=== PATIENT | male | born 1935 | race Caucasian/White ===

== ENCOUNTER → 2017-01-30 | Outpatient (CLI) | payer OTHER ==
[~2017-01-30] MED LIST: ASPEC81 PO; LPT40 PO; LSN5 PO; MCRK20 PO; NVLGI7030 SC
[2017-01-30 10:52] LABS: HEMATOCRIT 41.3 % (42-52); MEAN CELL VOLUME 93.2 fL (80-100); MEAN CORPUSCULAR HEMOGLOBIN 31.8 pg (25-34); MEAN CORPUSCULAR HGB CONC 34.1 g/dl (32-36); MEAN PLATELET VOLUME 10.2 fL (7.4-10.4); PLATELET COUNT 204 K/uL (130-400); RED BLOOD COUNT 4.43 M/uL (4.7-6.1)
[2017-01-30 11:00] LABS: CALCIUM 9.3 mg/dl (8.5-10.1)
[2017-01-30 11:03] LABS: BLOOD UREA NITROGEN 14 mg/dl (7-18); BUN/CREATININE RATIO 14.3 (10-20); CARBON DIOXIDE 22 mmol/L (21-32); CHLORIDE 108 mmol/L (98-107); CREATININE 0.99 mg/dl (0.60-1.40); GLUCOSE 142 mg/dl (70-99); POTASSIUM 4.5 mmol/L (3.5-5.1); SODIUM 141 mmol/L (136-145)
[2017-01-30 11:39] LABS: ESTIMATED AVERAGE GLUCOSE 166 mg/dl; HA1C FLAG Normal (Normal)
== END | disposition home or self-care (01) ==
LOC: C.LABWYN 10:08
PROVIDERS: ATTEND Internal Medicine
DX: E03.9 Hypothyroidism, unspecified (principal); E11.9 Type 2 diabetes mellitus without complications

== ENCOUNTER → 2017-03-13 | Outpatient (CLI) | payer OTHER | END | disposition home or self-care (01) | LOC: C.LABWYN 12:48 | PROVIDERS: ATTEND Internal Medicine | DX: E03.9 Hypothyroidism, unspecified (principal) ==

== ENCOUNTER → 2017-04-10 | Outpatient (CLI) | payer OTHER | END | disposition home or self-care (01) | LOC: C.LABWYN 17:47 | PROVIDERS: ATTEND Internal Medicine | DX: E03.9 Hypothyroidism, unspecified (principal) ==

== ENCOUNTER → 2017-05-22 | Outpatient (CLI) | payer OTHER | END | disposition home or self-care (01) | LOC: C.LABWYN 12:48 | PROVIDERS: ATTEND Internal Medicine | DX: E03.9 Hypothyroidism, unspecified (principal); E11.9 Type 2 diabetes mellitus without complications; I10 Essential (primary) hypertension; E78.00 Pure hypercholesterolemia, unspecified; G93.41 Metabolic encephalopathy ==

== ENCOUNTER → 2017-08-28 | Outpatient (CLI) | payer OTHER | END | disposition home or self-care (01) | LOC: C.LABWYN 11:51 | PROVIDERS: ATTEND Internal Medicine | DX: E03.9 Hypothyroidism, unspecified (principal) ==

== ENCOUNTER → 2017-10-25 | Outpatient (CLI) | payer OTHER ==
[2017-10-25 13:13] LABS: BLOOD UREA NITROGEN 18 mg/dl (7-18); CALCIUM 9.1 mg/dl (8.5-10.1); CARBON DIOXIDE 26 mmol/L (21-32); GLUCOSE 197 mg/dl (70-99); POTASSIUM 4.1 mmol/L (3.5-5.1); SODIUM 137 mmol/L (136-145)
== END | disposition home or self-care (01) ==
LOC: C.LABWYN 09:56
PROVIDERS: ATTEND Internal Medicine
DX: G93.41 Metabolic encephalopathy (principal); E11.9 Type 2 diabetes mellitus without complications; I10 Essential (primary) hypertension; E78.00 Pure hypercholesterolemia, unspecified; E03.9 Hypothyroidism, unspecified

== ENCOUNTER 2017-11-16 13:22 | Emergency (ER) | payer OTHER ==
[~2017-11-16] VITALS: Ht 170.2 cm; Wt 100.5 kg
[2017-11-16 13:30] VITALS: TEMP 36.4; Ht 170.2 cm; Wt 100.5 kg
[2017-11-16 14:46] LABS: BASO % 0.6 %; BASO ABS # 0.04 K/uL (0-0.2); EOS % 3.6 %; EOS ABS # 0.26 K/uL (0-0.5); HEMATOCRIT 41.4 % (42-52); HEMOGLOBIN 14.2 g/dL (14.0-18.0); IG# 0.04 K/uL (0.00-0.02); LYMPH % 28.6 %; LYMPH ABS # 2.05 K/uL (1.2-3.4); MEAN CELL VOLUME 91.2 fL (80-100); MEAN CORPUSCULAR HEMOGLOBIN 31.3 pg (25-34); MEAN CORPUSCULAR HGB CONC 34.3 g/dl (32-36); MEAN PLATELET VOLUME 9.5 fL (7.4-10.4); MONO % 8.9 %; MONO ABS # 0.64 K/uL (0.11-0.59); NEUT % 57.7 %; NEUT ABS # 4.13 K/uL (1.4-6.5); PLATELET COUNT 209 K/uL (130-400); RED CELL DISTRIBUTION WIDTH CV 13.5 % (11.5-14.5); RED CELL DISTRIBUTION WIDTH SD 44.7 fL (36.4-46.3); WHITE BLOOD COUNT 7.16 K/uL (4.8-10.8)
[2017-11-16] MEDS ORDERED: SODIUM CHLORIDE 0.9% 500ML 500 ML IV STA (14:46)
[2017-11-16 15:03] LABS: POTASSIUM 4.8 mmol/L (3.5-5.1); SODIUM 137 mmol/L (136-145)
[2017-11-16 15:09] LABS: ALBUMIN 3.7 gm/dl (3.4-5.0); ALT/SGPT 43 U/L (12-78); AST/SGOT 29 U/L (15-37); BLOOD UREA NITROGEN 19 mg/dl (7-18); CALCIUM 9.5 mg/dl (8.5-10.1); CARBON DIOXIDE 26 mmol/L (21-32); CREATININE 1.17 mg/dl (0.60-1.40); GLUCOSE 177 mg/dl (70-99)
[2017-11-16 15:12] LABS: ALKALINE PHOSPHATASE 71 U/L (45-117); TOTAL PROTEIN 7.3 gm/dl (6.4-8.2)
--- NOTE | 2017-11-16 15:26 | DIAGNOSTIC IMAGING REPORT ---
CHEST ONE VIEW PORTABLE CLINICAL HISTORY: 82 years-old Male presenting with dizziness. TECHNIQUE: Portable upright AP view of the chest was obtained. COMPARISON: 03/28/2016. FINDINGS: Atherosclerosis of the aortic arch. Cardiac silhouette normal in size. Mildly low lung volumes with hypoventilatory changes. No focal opacity. No large effusion or pneumothorax. Osseous structures normal. Upper abdomen normal. IMPRESSION: 1. Mildly low lung volumes with hypoventilatory changes. No convincing evidence of acute cardiopulmonary disease. Electronically signed by: Gianni Goodwin M.D. 11/16/2017 3:25 PM Dictated Date/Time: 11/16/2017 3:24 PM
--- NOTE | 2017-11-16 15:28 | DIAGNOSTIC IMAGING REPORT ---
HEAD WITHOUT CONTRAST (CT) CLINICAL HISTORY: 82 years-old Male presenting with dizziness. TECHNIQUE: Multidetector CT imaging of the head was performed without the use of intravenous contrast. IV contrast: None. A dose lowering technique was used consistent with the principles of ALARA (as low as reasonably achievable). COMPARISON: 03/28/2016. CT DOSE (mGy.cm): The estimated cumulative dose is 537.48 mGy.cm. FINDINGS: Dyslexia Teacher topogram: Unremarkable. Proportional ventricular and sulcal prominence, likely age-related parenchymal volume loss. Periventricular and subcortical white matter hypoattenuation, nonspecific but likely indicative of chronic small vessel ischemic change. No mass effect or midline shift. No hemorrhage or acute territorial infarct. No extra-axial fluid collection. Paranasal sinuses and mastoid air cells clear. Calvarium intact. IMPRESSION: 1. Chronic small vessel ischemic change. No acute intracranial abnormality. Electronically signed by: Gianni Goodwin M.D. 11/16/2017 3:27 PM Dictated Date/Time: 11/16/2017 3:25 PM
[2017-11-16] MEDS ORDERED: ATOR-24 PO (15:33)
[2017-11-16] MEDS ORDERED: LEVO50TA6 PO (15:33)
[2017-11-16] MEDS ORDERED: ERGO500037 PO (15:33)
[2017-11-16] MEDS ORDERED: HMLI7525 SC ×2 (15:33)
[2017-11-16] MEDS ORDERED: SENN-104 PO (15:33)
[2017-11-16] MEDS ORDERED: TRAM-10 PO (15:33)
[2017-11-16] MEDS ORDERED: POTA20TA16 PO (15:33)
[2017-11-16] MEDS ORDERED: NVLGI/PEN SC (15:33)
[2017-11-16] MEDS ORDERED: MELO7.5T5 PO (15:33)
[2017-11-16] MEDS ORDERED: ACET-1311 PO (15:33)
[2017-11-16] MEDS ORDERED: LSN5 PO (15:33)
[2017-11-16] MEDS ORDERED: ASPI81TA28 PO (15:33)
[2017-11-16] MEDS ORDERED: DOCU100C22 PO (15:33)
[2017-11-16] MEDS ORDERED: NAPR1TAB9 PO (15:33)
[2017-11-16] MEDS ORDERED: POLY335019 PO (15:33)
[2017-11-16] MEDS ORDERED: CETI10TA62 PO (15:33)
--- NOTE | 2017-11-16 16:15 | EMERGENCY ROOM VISIT NOTE ---
History Report prepared by Radha: Denise Delgado Under the Supervision of: Dr. Lucas Duke M.D. First contact with patient: 14:41 Chief Complaint: DIZZY Stated Complaint: DIZZINESS Nursing Triage Summary: pt states dizziness at this time, states eating lunch today and became dizzy afterwards. Pt states this has been happening frequently and staff at care facility decided to send him for evaluation today. History of Present Illness The patient is an 82 year old male who presents to the Emergency Room with complaints of persistent dizziness starting this morning. The patient resides in an assisted living facility. He was eating breakfast when he complained of dizziness. He was sent to the ED. He denies any LOC. He has been feeling well recently. He denies any fever, chills, cough, congestion, nausea, vomiting, diarrhea, or urinary symptoms. Source of History: patient Onset: this morning Position: other (global) Quality: other (dizziness) Timing: other (persistent) Associated Symptoms: No LOC, No fevers, No chills, No cough, No nausea, No vomiting, No diarrhea, No urinary symptoms Review of Systems See HPI for pertinent positives and negatives. A total of ten systems were reviewed and were otherwise negative. Past Medical & Surgical Medical Problems: (1) Diabetes mellitus (2) Hypertension Family History Noncontributory secondary to age. Social History Smoking Status: Never Smoker Drug Use: none Housing Status: assisted living Occupation Status: retired Current/Historical Medications Scheduled Aspirin (Aspirin Ec), 81 MG PO QAM Atorvastatin (Lipitor), 40 MG PO QPM Cetirizine Hcl (Qc All Day Allergy), 10 MG PO QAM Ergocalciferol (Vitamin D 79304 Unit), 50,000 UNIT PO WK Insulin Aspart (Novolog Flexpen), SC BID AT 0730 & 1630 Insulin Lispro 75/25 (Humalog Mix 75/25), 70 UNITS SC DAILY AT 1630 Insulin Lispro 75/25 (Humalog Mix 75/25), 90 UNITS SC DAILY AT 0730 Levothyroxine Sodium (Levothyroxine Sodium), 50 MCG PO DAILYBB Lisinopril (Lisinopril), 5 MG PO QAM Meloxicam (Mobic), 7.5 MG PO QAM Potassium Ext Rel (Klor-Con), 20 MEQ PO BIDM Sennosides-Docusate Sodium (Senna-S), 1 TAB PO QDL Scheduled PRN Acetaminophen (Tylenol), 650 MG PO Q4H PRN for Pain or Fever Docusate Sodium (Docqlace), 100 MG PO BID PRN for Constipation Naproxen (Aleve), 220 MG PO BID PRN for Pain Polyethylene Glycol 3350 (Miralax), 17 GM PO DAILY PRN for Constipation Tramadol (Ultram), 50 MG PO Q4H PRN for Pain Allergies Coded Allergies: No Known Allergies (Unverified , 11/16/17) Physical Exam Vital Signs Date Time Temp Pulse Resp B/P (MAP) Pulse Ox O2 Delivery O2 Flow Rate FiO2 11/16/17 17:56 88 16 155/74 96 11/16/17 16:02 87 16 137/70 97 Room Air 11/16/17 13:31 85 11/16/17 13:30 36.4 81 16 150/58 96 Room Air Physical Exam GENERAL: Awake, alert, well-appearing, in no distress HENT: Normocephalic, atraumatic. Oropharynx with dry MM but otherwise unremarkable. EYES: Normal conjunctiva. Sclera non-icteric. NECK: Supple. No nuchal rigidity. FROM. No JVD. RESPIRATORY: Clear to auscultation. CARDIAC: Regular rate, normal rhythm. Extremities warm and well perfused. Pulses equal. ABDOMEN: Soft, non-distended. No tenderness to palpation. No rebound or guarding. No masses. RECTAL: Deferred. MUSCULOSKELETAL: Chest examination reveals no tenderness. The back is symmetrical on inspection without obvious abnormality. There is no CVA tenderness to palpation. No joint edema. LOWER EXTREMITIES: Calves are equal size bilaterally and non-tender. No edema. No discoloration. NEURO: Normal sensorium. No sensory or motor deficits noted. Normal cerebellar function with [id number]. SKIN: No rash or jaundice noted. Medical Decision & Procedures ER Provider Diagnostic Interpretation: Xray results as stated below per my and radiologist interpretation. Radiology results as stated below per my review and radiologist interpretation: CHEST ONE VIEW PORTABLE CLINICAL HISTORY: 82 years-old Male presenting with dizziness. TECHNIQUE: Portable upright AP view of the chest was obtained. COMPARISON: 03/28/2016. FINDINGS: Atherosclerosis of the aortic arch. Cardiac silhouette normal in size. Mildly low lung volumes with hypoventilatory changes. No focal opacity. No large effusion or pneumothorax. Osseous structures normal. Upper abdomen normal. IMPRESSION: 1. Mildly low lung volumes with hypoventilatory changes. No convincing evidence of acute cardiopulmonary disease. Electronically signed by: Gianni Goodwin M.D. 11/16/2017 3:25 PM Dictated Date/Time: 11/16/2017 3:24 PM HEAD WITHOUT CONTRAST (CT) CLINICAL HISTORY: 82 years-old Male presenting with dizziness. TECHNIQUE: Multidetector CT imaging of the head was performed without the use of intravenous contrast. IV contrast: None. A dose lowering technique was used consistent with the principles of ALARA (as low as reasonably achievable). COMPARISON: 03/28/2016. CT DOSE (mGy.cm): The estimated cumulative dose is 537.48 mGy.cm. FINDINGS: Crepe Box Tender topogram: Unremarkable. Proportional ventricular and sulcal prominence, likely age-related parenchymal volume loss. Periventricular and subcortical white matter hypoattenuation, nonspecific but likely indicative of chronic small vessel ischemic change. No mass effect or midline shift. No hemorrhage or acute territorial infarct. No extra-axial fluid collection. Paranasal sinuses and mastoid air cells clear. Calvarium intact. IMPRESSION: 1. Chronic small vessel ischemic change. No acute intracranial abnormality. Electronically signed by: Gianni Goodwin M.D. 11/16/2017 3:27 PM Dictated Date/Time: 11/16/2017 3:25 PM Laboratory Results 11/16/17 14:30 Red Blood Count 4.54, Mean Corpuscular Volume 91.2, Mean Corpuscular Hemoglobin 31.3, Mean Corpuscular Hemoglobin Concent 34.3, Mean Platelet Volume 9.5, Neutrophils (%) (Auto) 57.7, Lymphocytes (%) (Auto) 28.6, Monocytes (%) (Auto) 8.9, Eosinophils (%) (Auto) 3.6, Basophils (%) (Auto) 0.6, Neutrophils # (Auto) 4.13, Lymphocytes # (Auto) 2.05, Monocytes # (Auto) 0.64, Eosinophils # (Auto) 0.26, Basophils # (Auto) 0.04 11/16/17 14:30 Test 11/16/17 14:30 11/16/17 15:40 White Blood Count 7.16 K/uL (4.8-10.8) Red Blood Count 4.54 M/uL (4.7-6.1) Hemoglobin 14.2 g/dL (14.0-18.0) Hematocrit 41.4 % (42-52) Mean Corpuscular Volume 91.2 fL (80-100) Mean Corpuscular Hemoglobin 31.3 pg (25-34) Mean Corpuscular Hemoglobin Concent 34.3 g/dl (32-36) Platelet Count 209 K/uL (130-400) Mean Platelet Volume 9.5 fL (7.4-10.4) Neutrophils (%) (Auto) 57.7 % Lymphocytes (%) (Auto) 28.6 % Monocytes (%) (Auto) 8.9 % Eosinophils (%) (Auto) 3.6 % Basophils (%) (Auto) 0.6 % Neutrophils # (Auto) 4.13 K/uL (1.4-6.5) Lymphocytes # (Auto) 2.05 K/uL (1.2-3.4) Monocytes # (Auto) 0.64 K/uL (0.11-0.59) Eosinophils # (Auto) 0.26 K/uL (0-0.5) Basophils # (Auto) 0.04 K/uL (0-0.2) RDW Standard Deviation 44.7 fL (36.4-46.3) RDW Coefficient of Variation 13.5 % (11.5-14.5) Immature Granulocyte % (Auto) 0.6 % Immature Granulocyte # (Auto) 0.04 K/uL (0.00-0.02) Anion Gap 7.0 mmol/L (3-11) Est Creatinine Clear Calc Drug Dose 53.1 ml/min Estimated GFR () 66.0 Estimated GFR (Non- 56.9 BUN/Creatinine Ratio 15.9 (10-20) Calcium Level 9.5 mg/dl (8.5-10.1) Magnesium Level 2.1 mg/dl (1.8-2.4) Total Bilirubin 0.6 mg/dl (0.2-1) Aspartate Amino Transf (AST/SGOT) 29 U/L (15-37) Alanine Aminotransferase (ALT/SGPT) 43 U/L (12-78) Alkaline Phosphatase 71 U/L (45-117) Troponin I < 0.015 ng/ml (0-0.045) Pro-B-Type Natriuretic Peptide 38 pg/ml (0-1800) Total Protein 7.3 gm/dl (6.4-8.2) Albumin 3.7 gm/dl (3.4-5.0) Globulin 3.6 gm/dl (2.5-4.0) Albumin/Globulin Ratio 1.0 (0.9-2) Urine Color YELLOW Urine Appearance CLEAR (CLEAR) Urine pH 5.0 (4.5-7.5) Urine Specific [place] 1.013 (1.000-1.030) Urine Protein NEG (NEG) Urine Glucose (UA) 1+ (NEG) Urine Ketones NEG (NEG) Urine Occult Blood NEG (NEG) Urine Nitrite NEG (NEG) Urine Bilirubin NEG (NEG) Urine Urobilinogen NEG (NEG) Urine Leukocyte Esterase NEG (NEG) Laboratory results reviewed by me. Medications Administered Medications (Trade) Dose Ordered Sig/Arturo Route Start Time Stop Time Status Last Admin Dose Admin Sodium Chloride 500 ml @ 999 mls/hr Q31M STAT IV 11/16/17 14:46 11/16/17 15:16 DC 11/16/17 15:27 999 MLS/HR ECG Per My Interpretation Indication: other (dizziness) Rate (beats per minute): 83 Rhythm: normal sinus Findings: no acute ischemic change, other (normal axis) ED Course 1442: The patient was evaluated in room B3A. A complete history and physical exam was performed. 1446: NSS 500 ml @ 999 mls/hr IV. 1602: I reevaluated the patient. Discussed results and discharge instructions: He verbalized understanding and agreement. The patient is ready for discharge. Medical Decision I reviewed the patient's past medical history, medications, and the nursing notes as described above. Differential diagnosis: Etiologies such as benign positional vertigo, dehydration, hypovolemia, anemia, tumor, infection, hypoglycemia, electrolyte abnormalities, cardiac sources, intracerebral event, toxicologic, neurologic, as well as others were entertained. The patient is a 82-year-old gentleman who presents emergency Department [facility] with episode of dizziness during lunch which is now resolved per hpi. Ill the patient is well-appearing, no acute distress, afebrile stable vital signs. EKG is unremarkable. Troponin negative. WBC within normal limits. Chest x-ray unremarkable. CT head negative. Patient has no complaints other than the IV in his arm. Given that the patient is well- appearing neurologically intact and with reassuring workup no indication for further evaluation at this time. Sx likely related to mild dehydration. Findings and plan for follow-up reviewed with patient. Patient agreeable and d/c 'd per discharge instructions. Medication Reconcilliation Current Medication List: was personally reviewed by me Blood Pressure Screening Patient's blood pressure: Elevated blood pressure Blood pressure disposition: Referred to PCP Impression Primary Impression: Dizziness Scribe Attestation The scribe's documentation has been prepared under my direction and personally reviewed by me in its entirety. I confirm that the note above accurately reflects all work, treatment, procedures, and medical decision making performed by me. Departure Information Dispostion Home / Self-Care Referrals ZAFAR FREITAS (PCP) Patient Instructions ED Dizziness O, [facility] Additional Instructions Please follow up with your primary care physician in the next 1-3 days for re- evaluation. The cause of your transient dizziness is unclear at this time but possibly due to mild dehydration. Otherwise, your exam, EKG, chest xray, lab results, and CT scan did not show signs of an emergent condition at this time. Drink plenty of fluids to ensure hydration. Return to the emergency department for worsening symptoms as described in the accompanying instructions.
[2017-11-16 17:56] VITALS: BP 155/74; PULSE 88; O2SAT 96
== END 2017-11-16 17:57 | disposition home or self-care (01) ==
LOC: EDBD 13:22 → C.EDB 13:23
DX: R42 Dizziness and giddiness (principal); E11.9 Type 2 diabetes mellitus without complications; I10 Essential (primary) hypertension; Z79.82 Long term (current) use of aspirin; Z79.4 Long term (current) use of insulin

== ENCOUNTER 2022-10-14 12:31 | Inpatient (IN) ==
--- NOTE | 2022-10-14 12:47 | Emergency Department Note ---
Impression & Plan Gastroenteritis, Weakness, Hyperglycemia due to type 1 diabetes mellitus ED Provider Note Provider: Dominik Neumann MD DATE OF SERVICE: 10/14/2022 CHIEF COMPLAINT: Dizzy/confusion/urinary incontinence/diarrhea HISTORY OF PRESENT ILLNESS: Patient is a 87-year-old gentleman history of hypertension and diabetes as well as hypothyroidism presenting here today from his nursing facility. EMS reports that the patient was around 11:00 last night and not been himself. Evidently has been dizzy and then: Conversation is normal. They report he is had some diarrhea and some dark stools. No traumas reported. Patient himself is a poor historian. Will answer a few yes and no questions and denies any significant pain right now. He denies headache or dizziness. He is unsure why he is here. Does not know his birthday but does not know the year of the recent holiday/season. Discussed with facility staff also state the patient did not eat this morning which is atypical and again not himself. He is hard of hearing at baseline. PAST MEDICAL HISTORY: As noted above MEDICATIONS: Reviewed medication list from the facility SOCIAL HISTORY: Resides at personal care facility PHYSICAL EXAM: GENERAL: alert and oriented to person in no acute distress on stretcher not aware of recent events or why he is here Head: normocephalic and atraumatic EYES: No injection, discharge or icterus. PERRL, EOMI. NECK: Trachea midline. Supple. ENT: Mucous membranes pink and moist. Pharynx without erythema or exudate. LUNGS: Airway patent. No retractions. Breath sounds clear with good air entry b ilaterally. HEART: Regular rate and rhythm. No chest wall tenderness ABDOMEN: Soft and non-tender, without guarding or rebound. Rectal: With nurse RN beef splitter, brown stool Hemoccult negative BACK: No midline tenderness, no wounds noted SKIN: Acyanotic, warm, dry, without rashes EXTREMITIES: Without swelling, tenderness or deformity NEUROLOGICAL: No focal deficits. No aphasia. No facial droop or slurred speech. Normal strength and tone in the extremities. Sensation to gross touch normal. Does have some difficulty answering more complex questions. Positive ambulate with assistance to the bathroom. EK bpm sinus rhythm first-degree AV block. No PVC or PAC. No acute ST segment elevation or depression. QTc 469. CONTINUOUS CARDIAC MONITORING: was ordered and showed a heart rate of 80s-90s bpm in sinus rhythm first-degree AV block Patient's laboratory studies and imaging reviewed. Differential includes gastrointestinal, infection, dehydration, metabolic abnormality, hypo/hyperglycemia, electrolyte disturbance, anemia, hypoxia, cardiac sources, intracerebral event/neurologic, as well as other pathologies. IMPRESSION/MEDICAL DECISION MAKING: Patient seems quite hard of hearing. Questionably answers some questions. CT head without acute findings. Not having focal neurological deficits and low suspicion for CVA given this. Is having some nonbloody diarrhea here. Negative flu and COVID testing. No significant leukocytosis or evidence of anemia today. Given some IV fluids magnesium his magnesium level a little bit low. No significant renal dysfunction. Procalcitonin minimally elevated awaiting a urine sample to exclude UTI given his urinary incontinence earlier. No evidence of transaminitis. Doubt pancreatitis. Benign abdomen and doubt acute perforation or diverticulitis. Troponin minimally elevated but without signs of chest pain question if this is more chronic but no baseline. Patient later little more alert and was able to eat some crackers and juice. We will give his evening dose of Lantus. Not in DKA at this point. Do have concerns given his diarrhea and fatigue and diabetes status that he is at risk for significant decline. Attempted to call the patient's son but no answer at the listed phone number. Given the patient's ambulatory dysfunction secondary to weakness again hospitalist contacted for further care. Still awaiting urine sample to exclude UTI. DIAGNOSIS: Gastroenteritis, weakness, confusion, type 1 diabetes DISPOSITION: Hospitalist will evaluate Patient was agreeable with this plan. Past Med/Surg History Medical History Diabetes mellitus Hypertension Hypothyroidism Surgical History Rectal prolapse prolapsed rectum repair Family History Other Cancer Depression Stroke Social History (Updated 10/14/22 @ 16:55 by Анна Guallpa PA-C) Smoking Status: Former smoker Smoking End Date: 1959; Feels Safe at Home: Yes Allergies Allergies Allergy/AdvReac Type Severity Reaction Status Date / Time No Known Allergies Allergy Unverified 04/29/21 09:01 Home Meds Home Medications Medication Instructions Recorded Confirmed aspirin 81 mg tablet,delayed 81 mg PO QAM 07/30/21 01/14/23 release (Darrion Low Dose Aspirin) atorvastatin 40 mg tablet (Lipitor) 40 mg PO DAILY@1700 04/29/21 10/14/22 levothyroxine 50 mcg tablet 50 mcg PO DAILYBB 04/29/21 10/14/22 (Synthroid) meclizine 12.5 mg tablet 12.5 mg PO TID Dizziness 04/29/21 10/14/22 meloxicam 7.5 mg tablet (Mobic) 7.5 mg PO QAM 04/29/21 10/14/22 cetirizine 10 mg tablet 10 mg PO DAILY 10/14/22 10/14/22 cholecalciferol (vitamin D3) 25 25 mcg PO DAILY 10/14/22 10/14/22 mcg (1,000 unit) capsule (Vitamin D3) insulin aspart U-100 100 unit/mL 0 unit subcut UD 10/14/22 10/14/22 (3 mL) subcutaneous pen insulin glargine 100 unit/mL (3 55 unit subcut BID 10/14/22 10/14/22 mL) subcutaneous pen (Lantus Solostar U-100 Insulin) potassium chloride 20 mEq 20 meq PO DAILY 10/14/22 10/14/22 tablet,extended release sennosides 8.6 mg tablet (senna) 8.6 mg PO DAILY 10/14/22 10/14/22 Results & Data (ED) Vital Signs Vital Signs - 24 hr 10/14/22 12:32 10/14/22 12:32 10/14/22 14:18 Temperature 36.7 C Temperature Source Oral Pulse Rate 82 Pulse Rate [Right Finger] 86 Pulse Rhythm [Right Finger] Pulse Strength [Right Finger] Respiratory Rate 24 20 Respiratory Effort / Characteristics Non-Labored Non-Labored Respiratory Depth Normal Normal Respiratory Pattern Blood Pressure 127/75 Blood Pressure [Right Arm] 120/62 Blood Pressure Mean 92 Blood Pressure Mean [Right Arm] 81 Pulse Oximetry 97 97 97 Oxygen Delivery Method Room Air Room Air Room Air Sepsis Recent Fever Within 48 Hours No Sepsis New/Unexplained Change in Mental Status N/A Sepsis Action Taken by Nursing No Action Required 10/14/22 16:00 Temperature Temperature Source Pulse Rate Pulse Rate [Right Finger] 91 H Pulse Rhythm [Right Finger] Regular Pulse Strength [Right Finger] Normal Respiratory Rate 21 Respiratory Effort / Characteristics Non-Labored Respiratory Depth Normal Respiratory Pattern Regular Blood Pressure Blood Pressure [Right Arm] 152/78 H Blood Pressure Mean Blood Pressure Mean [Right Arm] 102 Pulse Oximetry 98 Oxygen Delivery Method Room Air Sepsis Recent Fever Within 48 Hours Sepsis New/Unexplained Change in Mental Status Sepsis Action Taken by Nursing Laboratory Data 10/14/22 12:52 10/14/22 12:52 Lab Results 10/14/22 10/14/22 10/14/22 Range/Units 12:52 12:52 12:52 WBC 7.51 (4.8-10.8) K/ul RBC 4.56 L (4.63-6.08) M/uL Hgb 14.3 (14.0-18.0) g/dl Hct 41.5 (40.1-51.0) % MCV 91.0 (80.0-100.0) fL MCH 31.4 (25.0-34.0) pg MCHC 34.5 (32.0-36.0) g/dL RDW Std Deviation 44.2 (36.4-46.3) fL RDW Coeff of Santosh 13.2 (11.5-14.5) % Plt Count 183 (130-400) K/uL MPV 9.5 (9.4-12.4) fL Immature Gran % (Auto) 0.3 % Neut % (Auto) 83.6 % Lymph % (Auto) 7.1 % Dixon % (Auto) 8.4 % Eos % (Auto) 0.3 % Baso % (Auto) 0.3 % Neut # (Auto) 6.29 (1.4-6.5) K/uL Lymph # (Auto) 0.53 L (1.2-3.4) K/uL Dixon # (Auto) 0.63 (0.24-0.82) K/uL Eos # (Auto) 0.02 (0-0.50) K/uL Baso # (Auto) 0.02 (0-0.2) K/uL Immature Gran # (Auto) 0.02 (0.00-0.02) K/uL PT (9.0-12.0) Seconds INR (0.9-1.1) Sodium 137 (136-145) mmol/L Potassium 4.6 (3.5-5.1) mmol/L Chloride 106 (98-107) mmol/L Carbon Dioxide 20 L (21-32) mmol/L Anion Gap 11 (3-11) BUN 31 H (6-23) mg/dl Creatinine 1.25 (0.6-1.4) mg/dl Est Cr Clr Drug Dosing Not Reportable Est GFR ( Amer) 58.8 ml/min Est GFR (Non-Af Amer) 50.7 ml/min BUN/Creatinine Ratio 24.8 H (10-20) Glucose 193 H (70-99(Fasting)) mg/dl Calcium 8.6 (8.5-10.1) mg/dl Magnesium 1.6 L (1.7-2.4) mg/dl Total Bilirubin 1.1 H (0.2-1.0) mg/dl AST 19 (13-39) U/L ALT 19 (7-52) U/L Alkaline Phosphatase 38 (34-104) U/L Troponin I High Sens 21.0 H (0-20) pg/ml Total Protein 6.8 (6.0-8.3) gm/dl Albumin 3.9 (3.4-5.0) gm/dl Globulin 2.9 (2.5-4.0) gm/dl Albumin/Globulin Ratio 1.3 (0.9-2) Procalcitonin (0-0.5) ng/ml TSH 1.909 (0.300-4.500) uIu/ml SARS-CoV-2 (PCR) (Negative) Influenza Type A (PCR) (Neg) Influenza Type B (PCR) (Neg) RSV (RT-PCR) (Neg) 10/14/22 10/14/22 10/14/22 Range/Units 12:52 12:52 13:15 WBC (4.8-10.8) K/ul RBC (4.63-6.08) M/uL Hgb (14.0-18.0) g/dl Hct (40.1-51.0) % MCV (80.0-100.0) fL MCH (25.0-34.0) pg MCHC (32.0-36.0) g/dL RDW Std Deviation (36.4-46.3) fL RDW Coeff of Santosh (11.5-14.5) % Plt Count (130-400) K/uL MPV (9.4-12.4) fL Immature Gran % (Auto) % Neut % (Auto) % Lymph % (Auto) % Dixon % (Auto) % Eos % (Auto) % Baso % (Auto) % Neut # (Auto) (1.4-6.5) K/uL Lymph # (Auto) (1.2-3.4) K/uL Dixon # (Auto) (0.24-0.82) K/uL Eos # (Auto) (0-0.50) K/uL Baso # (Auto) (0-0.2) K/uL Immature Gran # (Auto) (0.00-0.02) K/uL PT 11.5 (9.0-12.0) Seconds INR 1.1 (0.9-1.1) Sodium (136-145) mmol/L Potassium (3.5-5.1) mmol/L Chloride (98-107) mmol/L Carbon Dioxide (21-32) mmol/L Anion Gap (3-11) BUN (6-23) mg/dl Creatinine (0.6-1.4) mg/dl Est Cr Clr Drug Dosing Est GFR ( Amer) ml/min Est GFR (Non-Af Amer) ml/min BUN/Creatinine Ratio (10-20) Glucose (70-99(Fasting)) mg/dl Calcium (8.5-10.1) mg/dl Magnesium (1.7-2.4) mg/dl Total Bilirubin (0.2-1.0) mg/dl AST (13-39) U/L ALT (7-52) U/L Alkaline Phosphatase (34-104) U/L Troponin I High Sens (0-20) pg/ml Total Protein (6.0-8.3) gm/dl Albumin (3.4-5.0) gm/dl Globulin (2.5-4.0) gm/dl Albumin/Globulin Ratio (0.9-2) Procalcitonin 0.63 H (0-0.5) ng/ml TSH (0.300-4.500) uIu/ml SARS-CoV-2 (PCR) NEGATIVE (Negative) Influenza Type A (PCR) Negative (Neg) Influenza Type B (PCR) Negative (Neg) RSV (RT-PCR) Negative (Neg) Administered Medications Discontinued Medications Magnesium Sulfate/Dextrose (Magnesium Sulfate / D5w) 1 gm in 100 mls @ 200 mls/hr IV Q30M RHODA Stop: 10/14/22 15:59 Last Infusion: 10/14/22 16:13 Dose: 0 mls/hr Documented By: Admin: 10/14/22 15:40 Dose: 200 mls/hr Documented By: Infusion: 10/14/22 15:40 Dose: 200 mls/hr Documented By: Admin: 10/14/22 15:13 Dose: 200 mls/hr Documented By: MELISSA Lactated Ringer's (Lr) 1,000 mls @ 999 mls/hr IV .Q1H1M ONE Stop: 10/14/22 16:21 Last Admin: 10/14/22 16:19 Dose: 999 mls/hr Documented By: MELISSA Insulin Glargine (Lantus Per Unit Charge) 55 units SQ ONE ONE Stop: 10/14/22 16:17 Last Admin: 10/14/22 16:42 Dose: 55 units Documented By: MELISSA Co-signed By: MINDI Ioversol (Optiray 350 100ml) 86 ml IV ONCE ONE Stop: 10/14/22 18:17 Last Admin: 10/14/22 18:16 Dose: 86 ml Documented By: ATILIO Imaging Data Radiologist's Impression: Chest X-Ray 10/14/22 12:42 XR chest 1V portable CLINICAL HISTORY: weak TECHNIQUE: Single frontal radiograph of the chest was obtained. Comparison: None available at the time of this dictation. FINDINGS: No lines and tubes are seen. Calcified aortic knob is seen. The lungs are clear. No evidence of pleural effusion or pneumothorax. IMPRESSION: No acute chest disease. ACT 112: Negative or not required by law. Electronically signed by: Hay Ryan M.D. 10/14/2022 1:[address] 10/14/22 12:42 CT head/brain wo con CLINICAL HISTORY: confusion Technique: Contiguous axial CT images of the head were acquired from the base of the skull to the vertex without intravenous contrast administration. Images were viewed in brain, subdural and bone windows. Automated dose lowering techniques and/or adjustment according to patient size were utilized for this exam. Comparison: Comparison is made to CT head 07/31/2019 Findings: Areas of decreased attenuation are present in the periventricular and subcortical white matter bilaterally consistent with small vessel ischemic disease. Generalized cerebral atrophy with commensurate enlargement of the ventricles, sulci, and cisterns is also present. There is no acute intracranial hemorrhage or evidence of acute territorial infarction. No shift of the midline structures, mass effect, or extra-axial abnormalities are shown. Atherosclerotic calcifications are present in the intracranial segments of the internal carotid arteries. Imaged portions of the paranasal sinuses and mastoid air cells are clear. The orbits appear normal. There are no acute fractures of the calvaria or scalp swelling. Impression: No acute intracranial hemorrhage, no evidence of acute territorial infarction or other acute intracranial disease process. ACT 112: Negative or not required by law. Electronically signed by: Hay Ryan M.D. 10/14/2022 2:09 PM Discharge Plan Visit Data Chief Complaint: Altered Mental Status ED Provider: Dominik Neumann Discharge Problem: Gastroenteritis, Weakness, Hyperglycemia due to type 1 diabetes mellitus Patient Disposition: Being Evaluated by Hospitalist Discharge Instructions Interventions: ED Discharge Assessment Last Done: 10/14/22 18:21 Forms Stand Alone Forms: My [facility] [employer] Prescriptions Prescriptions: No Action atorvastatin [Lipitor] 40 mg Tablet 40 mg PO DAILY@1700 meclizine 12.5 mg Tablet 12.5 mg PO TID Rx Instructions: Take at 0800,1200,1800 aspirin [Darrion Low Dose Aspirin] 81 mg Tablet,Delayed Release (Dr/Ec) 81 mg PO QAM meloxicam [Mobic] 7.5 mg Tablet 7.5 mg PO QAM levothyroxine [Synthroid] 50 mcg Tablet 50 mcg PO DAILYBB insulin aspart U-100 100 unit/mL (3 mL) Insulin Pen 0 unit SUBCUT UD Rx Instructions: sliding scale insulin glargine [Lantus Solostar U-100 Insulin] 100 unit/mL (3 mL) Insulin Pen 55 unit SUBCUT BID sennosides [senna] 8.6 mg Tablet 8.6 mg PO DAILY cetirizine 10 mg Tablet 10 mg PO DAILY cholecalciferol (vitamin D3) [Vitamin D3] 25 mcg (1,000 unit) Capsule 25 mcg PO DAILY potassium chloride 20 mEq Tablet Extended Release 20 meq PO DAILY Referrals Referrals: FORTINO ROJAS [Primary Care Provider] -
[2022-10-14 13:08] LABS: Basophils # (auto) 0.02 K/uL (0-0.2); Basophils % (auto) 0.3 %; Eosinophils # (auto) 0.02 K/uL (0-0.50); Eosinophils % (auto) 0.3 %; Hematocrit (blood only) 41.5 % (40.1-51.0); Hemoglobin 14.3 g/dl (14.0-18.0); Immature Granulocytes # (auto) 0.02 K/uL (0.00-0.02); Immature Granulocytes % (auto) 0.3 %; Lymphocytes # (auto) 0.53 K/uL (1.2-3.4); Lymphocytes % (auto) 7.1 %; Mean Corpuscular Hemoglobin 31.4 pg (25.0-34.0); Mean Corpuscular Hgb Conc 34.5 g/dL (32.0-36.0); Mean Platelet Volume 9.5 fL (9.4-12.4); Monocytes # (auto) 0.63 K/uL (0.24-0.82); Monocytes % (auto) 8.4 %; Neutrophils # (auto) 6.29 K/uL (1.4-6.5); Neutrophils % (auto) 83.6 %; Platelet Count 183 K/uL (130-400); RDW Coefficient of Variation 13.2 % (11.5-14.5); RDW Standard Deviation 44.2 fL (36.4-46.3); Red Blood Count 4.56 M/uL (4.63-6.08); White Blood Count 7.51 K/ul (4.8-10.8)
[2022-10-14 13:26] LABS: INR 1.1 (0.9-1.1); Prothrombin Time 11.5 Seconds (9.0-12.0)
--- NOTE | 2022-10-14 13:39 | XRay Report ---
XR chest 1V portable CLINICAL HISTORY: weak TECHNIQUE: Single frontal radiograph of the chest was obtained. Comparison: None available at the time of this dictation. FINDINGS: No lines and tubes are seen. Calcified aortic knob is seen. The lungs are clear. No evidence of pleur al effusion or pneumothorax. IMPRESSION: No acute chest disease. ACT 112: Negative or not required by law. Electronically signed by: Hay Ryan M.D. 10/14/2022 1:37 PM
[2022-10-14 13:45] LABS: Alanine Aminotransferase 19 U/L (7-52); Albumin Globulin Ratio 1.3 (0.9-2); Albumin Level 3.9 gm/dl (3.4-5.0); Alkaline Phosphatase 38 U/L (34-104); Anion Gap 11 (3-11); Aspartate Aminotransferase 19 U/L (13-39); BUN Creatinine Ratio 24.8 (10-20); Bilirubin,Total 1.1 mg/dl (0.2-1.0); Blood Urea Nitrogen 31 mg/dl (6-23); Calcium 8.6 mg/dl (8.5-10.1); Carbon Dioxide 20 mmol/L (21-32); Chloride 106 mmol/L (98-107); Est GFR (African American) 58.8 ml/min; Est GFR (Non-African American) 50.7 ml/min; Globulin 2.9 gm/dl (2.5-4.0); Glucose 193 mg/dl (70-99(Fasting)); Magnesium 1.6 mg/dl (1.7-2.4); Potassium 4.6 mmol/L (3.5-5.1); Sodium 137 mmol/L (136-145); Total Protein 6.8 gm/dl (6.0-8.3)
[2022-10-14 14:12] LABS: Influenza A virus by PCR Negative (Neg); Influenza B virus by PCR Negative (Neg); RSV by PCR Negative (Neg); SARS CoV2 RNA(COVID-19) Ceph NEGATIVE (Negative)
--- NOTE | 2022-10-14 14:12 | CT Scan Report ---
CT head/brain wo con CLINICAL HISTORY: confusion Technique: Contiguous axial CT images of the head were acquired from the base of the skull to the rafael ashlee without intravenous contrast administration. Images were viewed in brain, subdural and [facility]. Automated dose lowering techniques and/or adjustment according to patient size were utilized for this exam. Comparison: Comparison is made to CT head 07/31/2019 Findings: Areas of decreased attenuation are present in the periventricular and subcortical white matter bilate rally consistent with small vessel ischemic disease. Generalized cerebral atrophy with commensurate e nlargement of the ventricles, sulci, and cisterns is also present. There is no acute intracranial hem orrhage or evidence of acute territorial infarction. No shift of the midline structures, mass effect, or extra-axial abnormalities are shown. Atherosclerotic calcifications are present in the intracran ial segments of the internal carotid arteries. Imaged portions of the paranasal sinuses and mastoid air cells are clear. The orbits appear normal. There are no acute fractures of the calvaria or scalp swelling. Impression: No acute intracranial hemorrhage, no evidence of acute territorial infarction or other acute intracra nial disease process. ACT 112: Negative or not required by law. Electronically signed by: Hya Ryan M.D. 10/14/2022 2:09 PM
[2022-10-14] MEDS: MAGNESIUM SULFATE / D5W 1 GM/100 ML BAG IV SCH ×2 (15:13→15:40)
[2022-10-14] MEDS ORDERED: LACTATED RINGER'S 1,000 ML IV ONE (15:21)
[2022-10-14] MEDS ORDERED: LANTUS PER UNIT CHARGE SQ ONE (16:16)
--- NOTE | 2022-10-14 16:52 | History & Physical Report ---
Date of Service October 14, 2022 Assessment & Plan (1) Gastroenteritis: (2) Weakness: (3) Hyperglycemia due to type 1 diabetes mellitus: (4) Diabetes mellitus: (5) Hypertension: (6) Hypothyroidism: Plan: This is an 87-year-old male who resides at [facility] with PMH of type 1 diabetes, dyslipidemia, hypertension, hypothyroidism and other medical problems listed below who presents with confusion, decreased appetite and diarrhea. Gastroenteritis Weakness Acute metabolic encephalopathy Diarrhea, frequent urination, decreased appetite and confusion noted by personal-halfway over the past few days Given 1L LR and magnesium supplementation in ED Alert and oriented x3 on exam although very hard of hearing CT head without acute intracranial abnormality Afebrile, no leukocytosis, magnesium being replaced, high-sensitivity troponin 21 likely demand in setting of dehydration. Procalcitonin elevated at 0.[address] abdomen pelvis due to diffuse lower abdominal pain on exam UA, stool culture pending Evaluate need for antibiotics after CT abdomen pelvis although presentation consistent with viral gastroenteritis at this time. Continue gentle IV fluids Fall precautions, PT OT evaluation Hypomagnesemia In setting of GI losses -replacing Hyperglycemia in setting of type 1 diabetes Initial BSG 193, given missed insulin dose Basal/bolus insulin while in-patient BSG AC HS Hypertension BP 152/78. Monitor, add as needed antihypertensives if needed Hypothyroidism Continue levothyroxine DVT Ppx: SQ heparin Code status: FULL per [facility] documentation PCP: Priscila Dispo: Admitted to med/surg Patient seen in collaboration with Dr. Gastelum. Please see addendum. History of Present Illness Chief Complaint: Confusion Primary Care Provider: [facility] This is an 87-year-old male who resides at [facility] with PMH of type 1 diabetes, dyslipidemia, hypertension, hypothyroidism and other medical problems listed below who presents with confusion, decreased appetite and diarrhea. At baseline per staff, patient can hold a conversation without issue but was notably less "with it" since last evening. Having more frequent urination, complaints of dizziness on 2 days of diarrhea. Notable decrease in appetite as well. Brought into ED for further evaluation, where he was also noted to be unstable on his feet while ambulating to the restroom. Per patient, uses walker at baseline. Still endorsing constant lower abdominal pain. Of note, exam limited due to patient being very hard of hearing. No fever, chills, chest pain, shortness of breath, nausea, vomiting or constipation. Allergies Allergy/AdvReac Type Severity Reaction Status Date / Time No Known Allergies Allergy Unverified 04/29/21 09:01 Home Medications Medication Instructions Recorded Confirmed Type aspirin 81 mg tablet,delayed 81 mg PO QAM 04/29/21 10/14/22 History release (Darrion Low Dose Aspirin) atorvastatin 40 mg tablet (Lipitor) 40 mg PO DAILY@1700 04/29/21 10/14/22 History levothyroxine 50 mcg tablet 50 mcg PO DAILYBB 04/29/21 10/14/22 History (Synthroid) meclizine 12.5 mg tablet 12.5 mg PO TID Dizziness 04/29/21 10/14/22 History meloxicam 7.5 mg tablet (Mobic) 7.5 mg PO QAM 04/29/21 10/14/22 History cetirizine 10 mg tablet 10 mg PO DAILY 10/14/22 10/14/22 History cholecalciferol (vitamin D3) 25 25 mcg PO DAILY 10/14/22 10/14/22 History mcg (1,000 unit) capsule (Vitamin D3) insulin aspart U-100 100 unit/mL 0 unit subcut UD 10/14/22 10/14/22 History (3 mL) subcutaneous pen insulin glargine 100 unit/mL (3 55 unit subcut BID 10/14/22 10/14/22 History mL) subcutaneous pen (Lantus Solostar U-100 Insulin) potassium chloride 20 mEq 20 meq PO DAILY 10/14/22 10/14/22 History tablet,extended release sennosides 8.6 mg tablet (senna) 8.6 mg PO DAILY 10/14/22 10/14/22 History Past Med/Surg History Medical History Diabetes mellitus Hypertension Hypothyroidism Surgical History Rectal prolapse prolapsed rectum repair Family History Other Cancer Depression Stroke Social History (Updated 10/14/22 @ 16:55 by Анна Guallpa PA-C) Smoking Status: Never smoker Smoking End Date: 1961; Hx Alcohol Use: No Hx Substance Use: No Preferred Language: Turkmen Communication Ability: Impaired Communication Ability Comment: pt w/ periods of confusion Clinic Physician Required: No Beliefs That Will Affect Care: None Current Living Situation: [facility] Feels Safe at Home: Yes Safety Concerns: Feels Safe At This Time Review of Systems Review of Systems: At least ten systems reviewed and negative except as noted in the HPI. Physical Exam Physical Exam: Please see Dr. Gastelum's addendum for physical exam. Results & Data Results & Data ([facility]) Vital Signs (Past 12 Hours) Vital Signs Temp Pulse Pulse Resp BP BP Pulse Ox 10/14/22 16:00 91 H 21 152/78 H 98 10/14/22 14:18 86 20 120/62 97 10/14/22 12:32 97 10/14/22 12:32 36.7 C 82 24 127/75 97 O2 Del Method 10/14/22 16:00 Room Air 10/14/22 14:18 Room Air 10/14/22 12:32 Room Air 10/14/22 12:32 Room Air Laboratory Results Short CBC 10/14/22 Range/Units 12:52 WBC 7.51 (4.8-10.8) K/ul Hgb 14.3 (14.0-18.0) g/dl Hct 41.5 (40.1-51.0) % Plt Count 183 (130-400) K/uL BMP 10/14/22 12:52 Sodium 137 Potassium 4.6 Chloride 106 Carbon Dioxide 20 L BUN 31 H Creatinine 1.25 Glucose 193 H Calcium 8.6 Liver Function 10/14/22 Range/Units 12:52 Total Bilirubin 1.1 H (0.2-1.0) mg/dl AST 19 (13-39) U/L ALT 19 (7-52) U/L Alkaline Phosphatase 38 (34-104) U/L Albumin 3.9 (3.4-5.0) gm/dl Diagnostic Findings Chest X-Ray 10/14/22 12:42 XR chest 1V portable CLINICAL HISTORY: weak TECHNIQUE: Single frontal radiograph of the chest was obtained. Comparison: None available at the time of this dictation. FINDINGS: No lines and tubes are seen. Calcified aortic knob is seen. The lungs are clear. No evidence of pleural effusion or pneumothorax. IMPRESSION: No acute chest disease. ACT 112: Negative or not required by law. Electronically signed by: Hay Ryan M.D. 10/14/2022 1:[address] 10/14/22 12:42 CT head/brain wo con CLINICAL HISTORY: confusion Technique: Contiguous axial CT images of the head were acquired from the base of the skull to the vertex without intravenous contrast administration. Images were viewed in brain, subdural and bone windows. Automated dose lowering techniques and/or adjustment according to patient size were utilized for this exam. Comparison: Comparison is made to CT head 07/31/2019 Findings: Areas of decreased attenuation are present in the periventricular and subcortical white matter bilaterally consistent with small vessel ischemic disease. Generalized cerebral atrophy with commensurate enlargement of the ventricles, sulci, and cisterns is also present. There is no acute intracranial hemorrhage or evidence of acute territorial infarction. No shift of the midline structures, mass effect, or extra-axial abnormalities are shown. Atherosclerotic calcifications are present in the intracranial segments of the internal carotid arteries. Imaged portions of the paranasal sinuses and mastoid air cells are clear. The orbits appear normal. There are no acute fractures of the calvaria or scalp swelling. Impression: No acute intracranial hemorrhage, no evidence of acute territorial infarction or other acute intracranial disease process. ACT 112: Negative or not required by law. Electronically signed by: Hay Ryan M.D. 10/14/2022 2:09 PM ECG Additional Comments: EKG reviewed independently showing sinus rhythm with borderline first-degree AV block Supervising Physician Co-Signing Physician Notes Pt is a 87 y/o M with hx of IDDM, hypothyroidism, HTN, Hearing loss, IBS admitted for Diarrhea, decreased appetite and ambulatory difficulty/AMS PE: NAD Cardiac: Normal S1/S2, no murmur Lungs: CTA, no wheezing or crackles Abd: soft, ND, mild TTP of the lower abd MSK: no edema Psych: AAOx3 but heard of hearing, normal affect A/P: Diarrhea with Abd TTP + Metabolic encephalopathy: -no leukocytosis -will get UA and CTA abd to r/o diverticulitis -Stool culture sent -received IVF in the ER - CT head: no acute finding - PT/OT IDDM with hyperglycemia: -received insulin in the ER -will continue his home Lantus units - diabetic diet -ISS Other chronic conditions: Plan as above Agree with A/P by Анна Guallpa PA-C
[2022-10-14] MEDS ORDERED: OPTIRAY 350 100ml IV ONE (18:16)
[2022-10-14] MEDS ORDERED: ONDANSETRON INJ 2 MG/ML 2 ML VIAL IV PRN (18:52)
[2022-10-14] MEDS ORDERED: GLUCOSE 10 TAB/TUBE PO PRN (18:52)
[2022-10-14] MEDS ORDERED: GLUCAGON FOR INJ 1 MG VIAL SQ PRN (18:52)
[2022-10-14] MEDS ORDERED: SODIUM CHLORIDE 0.9% 1000ML 1,000 ML IV SCH (18:52)
[2022-10-14] MEDS ORDERED: POLYETHYLENE (MIRALAX) 17 GM PACK PO PRN (18:52)
[2022-10-14] MEDS ORDERED: DEXTROSE 50% 50 ML SYRINGE IV PRN (18:52)
[2022-10-14] MEDS ORDERED: GLUCOSE 40% GEL 15 GM TUBE PO PRN (18:52)
[2022-10-14] MEDS ORDERED: CARBOHYDRATES FOR HYPOGLYCEMIA PO PRN (18:52)
[2022-10-14] MEDS: MECLIZINE 12.5 MG TAB PO SCH (19:57)
[2022-10-14] MEDS: HEPARIN SOD 5,000 UNIT/0.5 ML VIAL SQ SCH (19:58)
[2022-10-14] MEDS: INSULIN ASPART PER UNIT SC SCH (19:59)
[2022-10-14 20:27] LABS: Appearance Urine Clear (Clear); Bilirubin Urine Negative (Negative); Blood Urine Negative (Negative); Color Urine Orange; Glucose Urine UA 2+ (Negative); Ketones Urine Negative (Negative); Leukocyte Esterase Urine Negative (Negative); Nitrite Urine Negative (Negative); Protein Urine Negative (Negative); Specific Gravity Urine 1.044 (1.000-1.030); Urobilinogen Urine Negative (Negative)
--- NOTE | 2022-10-14 22:37 | CT Scan Report ---
CT abd pelvis IV con only CLINICAL HISTORY: lower abdominal pain TECHNIQUE: Helical axial images of the abdomen and pelvis were obtained and displayed. Automated dose lowering techniques and/or adjustment according to patient size were utilized for this exam. This e xam was performed with intravenous contrast. CT DOSE: 1336.37 mGy.cm COMPARISON: None available at the time of this dictation. FINDINGS: Lower chest: No acute abnormality. Liver: Unremarkable. No focal lesions are seen. Gallbladder and biliary tree: Patient is status post cholecystectomy. No intra- or extrahepatic bilia ry ductal dilation. Pancreas: Unremarkable, no focal lesions. Spleen: Unremarkable. Adrenals: Unremarkable. Kidneys and ureters: Unremarkable. Bladder: Unremarkable. Reproductive organs: Unremarkable. Bowel: A hiatal hernia is seen. The appendix is not seen however there is no secondary signs of appen dicitis. Lymph nodes Retroperitoneal: Unremarkable. Pelvic: Unremarkable. Mesenteric: Unremarkable. Peritoneum: Normal. Vessels: Atherosclerotic calcifications are seen. Abdominal wall: Unremarkable. Bones: Degenerative changes in the visualized spine. IMPRESSION: No acute abnormalities and in particular no evidence of diverticulitis or appendicitis. ACT 112: Negative or not required by law. Electronically signed by: Hay Ryan M.D. 10/14/2022 10:34 PM
[2022-10-15] MEDS: HEPARIN SOD 5,000 UNIT/0.5 ML VIAL SQ SCH ×2 (05:14→13:33)
[2022-10-15] MEDS: LEVOTHYROXINE SODIUM 50 MCG TABLET PO SCH (05:16)
[2022-10-15 06:53] LABS: Hemoglobin 13.4 g/dl (14.0-18.0); Mean Corpuscular Hemoglobin 30.8 pg (25.0-34.0); Mean Corpuscular Hgb Conc 33.5 g/dL (32.0-36.0); Mean Platelet Volume 10.4 fL (9.4-12.4); Platelet Count 159 K/uL (130-400); RDW Coefficient of Variation 13.2 % (11.5-14.5); RDW Standard Deviation 44.4 fL (36.4-46.3); Red Blood Count 4.35 M/uL (4.63-6.08); White Blood Count 4.85 K/ul (4.8-10.8)
[2022-10-15 07:09] LABS: Adenovirus F 40/41 PCR Not Detected (NotDetected); Astrovirus PCR Not Detected (NotDetected); Campylobacter PCR Not Detected (NotDetected); Cryptosporidium PCR Not Detected (NotDetected); Cyclospora cayetanensis PCR Not Detected (NotDetected); Entamoeba histolytica PCR Not Detected (NotDetected); Enteroaggregative E.coli(EAEC) Not Detected (NotDetected); Enteropathogenic E.coli (EPEC) Not Detected (NotDetected); Enterotoxigenic E.coli (ETEC) Not Detected (NotDetected); Giardia lamblia PCR Not Detected (NotDetected); Plesiomonas shigelloides PCR Not Detected (NotDetected); Rotavirus A PCR Not Detected (NotDetected); Salmonella PCR Not Detected (NotDetected); Sapovirus PCR Not Detected (NotDetected); Shiga-like Toxin E.coli (STEC) Not Detected (NotDetected); Shigella/Enteroinvasive E.coli Not Detected (NotDetected); Vibrio cholerae PCR Not Detected (NotDetected); Vibrio species PCR Not Detected (NotDetected); Yersinia enterocolitica PCR Not Detected (NotDetected)
[2022-10-15 07:18] LABS: Norovirus GI/GII PCR DETECTED (NotDetected)
[2022-10-15 07:30] LABS: BUN Creatinine Ratio 26.1 (10-20); Calcium 7.9 mg/dl (8.5-10.1); Creatinine Clr Calc Pharmacy 60.9 ml/min; Est GFR (African American) 85.2 ml/min; Est GFR (Non-African American) 73.5 ml/min; Potassium 3.9 mmol/L (3.5-5.1)
[2022-10-15] MEDS: CETIRIZINE HCL 10 MG TABLET PO SCH (08:53)
[2022-10-15] MEDS: ASPIRIN 81 MG ECTAB PO SCH (08:53)
[2022-10-15] MEDS: POTASSIUM CHLORIDE CRTAB 20 MEQ TABCR PO SCH (08:53)
[2022-10-15] MEDS: MELOXICAM 7.5 MG TAB PO SCH (08:53)
[2022-10-15] MEDS: CHOLECALCIFEROL 1,000 UNITS 25 MCG TAB PO SCH (08:53)
[2022-10-15] MEDS: MECLIZINE 12.5 MG TAB PO SCH ×3 (08:53→20:07)
[2022-10-15] MEDS: INSULIN ASPART PER UNIT SC SCH ×4 (08:57→21:01)
[2022-10-15] MEDS ORDERED: LANTUS PER UNIT CHARGE SQ SCH ×2 (09:00→21:00)
[2022-10-15] MEDS: ACETAMINOPHEN 325 MG TAB PO PRN ×3 (09:45→20:07)
[2022-10-15] MEDS: SODIUM CHLORIDE 0.9% 1000ML 1,000 ML IV SCH (11:37)
--- NOTE | 2022-10-15 15:21 | Hospitalist Progress Note ---
Date of Service October 15, 2022 Assessment & Plan (1) Gastroenteritis: Plan: Per admitting service notes with addendum: (1) Gastroenteritis: (2) Weakness: (3) Hyperglycemia due to type 1 diabetes mellitus: (4) Diabetes mellitus: (5) Hypertension: (6) Hypothyroidism: Plan: This is an 87-year-old male who resides at [facility] with PMH of type 1 diabetes, dyslipidemia, hypertension, hypothyroidism and other medical problems listed below who presents with confusion, decreased appetite and diarrhea. Gastroenteritis Weakness Acute metabolic encephalopathy Diarrhea, frequent urination, decreased appetite and confusion noted by personal-penitentiary over the past few days Given 1L LR and magnesium supplementation in ED Alert and oriented x3 on exam although very hard of hearing CT head without acute intracranial abnormality Afebrile, no leukocytosis, magnesium being replaced, high-sensitivity troponin 21 likely demand in setting of dehydration. Procalcitonin elevated at 0.[address] abdomen pelvis due to diffuse lower abdominal pain on exam UA, stool culture pending Evaluate need for antibiotics after CT abdomen pelvis although presentation consistent with viral gastroenteritis at this time. Continue gentle IV fluids Fall precautions, PT OT evaluation 10/15 Patient awake and alert, pleasantly confused Stool PCR: Positive for norovirus Start IV fluids, clear liquid diet, as needed Imodium Monitor closely Hypomagnesemia In setting of GI losses -replacing Replaced Hyperglycemia in setting of type 1 diabetes Initial BSG 193, given missed insulin dose Basal/bolus insulin while in-patient BSG AC HS Will consult pharmacy glycemic service Hypertension BP 152/78. Monitor, add as needed antihypertensives if needed Blood pressure improved Hypothyroidism Continue levothyroxine DVT Ppx: SQ heparin Code status: FULL per [facility] documentation PCP: Priscila Dispo: Admitted to med/surg Admission and Anticipated Discharge Date Admission Date: October 14, 2022 Subjective Follow-up for acute gastroenteritis, etc. Per RN patient has had 2 loose bowel movements this morning Seen resting in bed, watching TV, not in distress Conversant, pleasantly confused States he has been having diarrhea today But no abdominal pain, nausea vomiting, fevers or chills no chest pain, dyspnea, palpitations, dizziness No other symptoms Review of Systems Review of Systems: all noted and negative except for above Physical Exam Physical Exam: General- oriented x 1, not in distress, speaks in sentences with no effort or accessory muscle use Eyes- anicteric Neck- no JVD Lungs- clear breath sounds bilaterally, no rales/wheezes Heart- normal rate, regular rhythm; no murmurs Abdomen-hyperactive bowel sounds, nondistended, soft, nontender Extremities- no pretibial edema, no calf tenderness Neuro- alert, oriented x 3; no gross focal neurologic deficits Skin- warm & dry Results & Data Results & Data ([facility]) Vital Signs (Past 12 Hours) Vital Signs Temp Pulse Resp BP Pulse Ox O2 Del Method 10/15/22 15:01 36.6 C 76 16 123/69 96 Room Air 10/15/22 07:54 37.0 C 84 16 124/66 94 Room Air all noted and reviewed including below
[2022-10-15] MEDS ORDERED: PHARMACY GLYCEMIC MGMT CONSULT PRN (15:27)
[2022-10-15] MEDS: ATORVASTATIN 40 MG TAB PO SCH (18:08)
--- NOTE | 2022-10-15 21:55 | Electrocardiogram Report ---
Test Reason : Blood Pressure : / mmHG Vent. Rate : 082 BPM Atrial Rate : 082 BPM P-R Int : 216 ms QRS Dur : 072 ms QT Int : 402 ms P-R-T Axes : 049 008 053 degrees QTc Int : 469 ms Sinus rhythm with 1st degree A-V block Otherwise normal ECG When compared with ECG of 31-JUL-2019 16:33, No significant change was found Confirmed by Tio Calvert ([id number]) on 10/15/2022 9:54:37 PM Referred By: [facility] Confirmed By:Tio Calvert
[2022-10-16] MEDS: ACETAMINOPHEN 325 MG TAB PO PRN ×4 (00:17→18:03)
[2022-10-16] MEDS: SODIUM CHLORIDE 0.9% 1000ML 1,000 ML IV SCH ×2 (00:17→14:29)
[2022-10-16] MEDS: LEVOTHYROXINE SODIUM 50 MCG TABLET PO SCH (05:35)
[2022-10-16 07:33] LABS: Hematocrit (blood only) 38.5 % (40.1-51.0); Hemoglobin 12.6 g/dl (14.0-18.0); Mean Corpuscular Hemoglobin 30.6 pg (25.0-34.0); Mean Corpuscular Hgb Conc 32.7 g/dL (32.0-36.0); Mean Corpuscular Volume 93.4 fL (80.0-100.0); Mean Platelet Volume 9.7 fL (9.4-12.4); Platelet Count 167 K/uL (130-400); RDW Coefficient of Variation 13.3 % (11.5-14.5); RDW Standard Deviation 45.4 fL (36.4-46.3); Red Blood Count 4.12 M/uL (4.63-6.08); White Blood Count 4.72 K/ul (4.8-10.8)
[2022-10-16 07:52] LABS: BUN Creatinine Ratio 22.4 (10-20); Calcium 7.6 mg/dl (8.5-10.1); Creatinine Clr Calc Pharmacy 57.2 ml/min; Est GFR (African American) 78.9 ml/min; Est GFR (Non-African American) 68.1 ml/min; Potassium 4.1 mmol/L (3.5-5.1)
[2022-10-16] MEDS ORDERED: LANTUS PER UNIT CHARGE SQ SCH (09:00)
[2022-10-16] MEDS: CHOLECALCIFEROL 1,000 UNITS 25 MCG TAB PO SCH (09:19)
[2022-10-16] MEDS: MECLIZINE 12.5 MG TAB PO SCH ×3 (09:19→20:07)
[2022-10-16] MEDS: CETIRIZINE HCL 10 MG TABLET PO SCH (09:19)
[2022-10-16] MEDS: ASPIRIN 81 MG ECTAB PO SCH (09:19)
[2022-10-16] MEDS: POTASSIUM CHLORIDE CRTAB 20 MEQ TABCR PO SCH (09:19)
[2022-10-16] MEDS: HEPARIN SOD 5,000 UNIT/0.5 ML VIAL SQ SCH ×2 (09:20→20:07)
[2022-10-16] MEDS: MELOXICAM 7.5 MG TAB PO SCH (09:22)
[2022-10-16] MEDS: INSULIN ASPART PER UNIT SC SCH ×4 (09:27→21:03)
[2022-10-16 09:29] LABS: Estimated Average Glucose 237 mg/dl; Hemoglobin A1C 9.9 % (4.5-5.6)
--- NOTE | 2022-10-16 12:29 | Pharmacy Report ---
Pharmacy Glycemic Short Note 2 - Date of Service October 16, 2022 - Glycemic Short BSG Results (Last 24 hours): 10/15/22 10/15/22 10/15/22 12:17 17:05 20:32 Glucose POC Glucose 82 118 H 145 H 10/16/22 10/16/22 10/16/22 07:13 07:58 11:55 Glucose 142 H POC Glucose 155 H 237 H OUTPATIENT ANTIDIABETIC REGIMEN: * Lantus 55 units SC BID * Novolog SSI HbA1c: 9.9% (10/16/22) ASSESSMENT: * FROILAN is a 87 year old male who presented on 10/14/22 from [facility] with confusion, diarrhea, and decreased appetite * Patient has history of T1DM (A1c suggests poor outpatient glycemic control) * BSGs have been reasonably controlled since time of admission * Received 53 units of insulin yesterday (40 units of basal and 13 units of prandial/correctional bolus) * Patient was originally NPO, now advanced to diet * Fasting BSG of 155 mg/dL (up from yesterday), will plan to give yesterday's total daily dose all at once this morning and allow for increased dose via scale this evening PLAN FOR INPATIENT GLYCEMIC CONTROL: * Hold outpatient oral diabetes medications * Basal insulin * Lantus 40 units SC daily * Lantus 0-20 units SC hs x 1 (to allow for 25-50% increase from yesterday) * Bolus insulin * NovoLog per scale ACHS or Q6hrs while NPO * Goal Range: Low 120 mg/dL - High 160 mg/dL * Correction Factor: 25 mg/dL/unit * Nutritional / Prandial insulin per carb ratio of 1 unit per 9 grams CHO consumed
[2022-10-16] MEDS: ATORVASTATIN 40 MG TAB PO SCH (18:03)
--- NOTE | 2022-10-16 18:24 | Hospitalist Progress Note ---
Date of Service October 16, 2022 Assessment & Plan (1) Gastroenteritis: Plan: Per admitting service notes with addendum: (1) Gastroenteritis: (2) Weakness: (3) Hyperglycemia due to type 1 diabetes mellitus: (4) Diabetes mellitus: (5) Hypertension: (6) Hypothyroidism: Plan: This is an 87-year-old male who resides at [facility] with PMH of type 1 diabetes, dyslipidemia, hypertension, hypothyroidism and other medical problems listed below who presents with confusion, decreased appetite and diarrhea. Gastroenteritis Weakness Acute metabolic encephalopathy Diarrhea, frequent urination, decreased appetite and confusion noted by personal-penitentiary over the past few days Given 1L LR and magnesium supplementation in ED Alert and oriented x3 on exam although very hard of hearing CT head without acute intracranial abnormality Afebrile, no leukocytosis, magnesium being replaced, high-sensitivity troponin 21 likely demand in setting of dehydration. Procalcitonin elevated at 0.[address] abdomen pelvis due to diffuse lower abdominal pain on exam UA, stool culture pending Evaluate need for antibiotics after CT abdomen pelvis although presentation consistent with viral gastroenteritis at this time. Continue gentle IV fluids Fall precautions, PT OT evaluation 10/15 Patient awake and alert, pleasantly confused Stool PCR: Positive for norovirus Start IV fluids, clear liquid diet, as needed Imodium Monitor closely Hypomagnesemia In setting of GI losses -replacing Replaced Hyperglycemia in setting of type 1 diabetes Initial BSG 193, given missed insulin dose Basal/bolus insulin while in-patient BSG AC HS Will consult pharmacy glycemic service Hypertension BP 152/78. Monitor, add as needed antihypertensives if needed Blood pressure improved Hypothyroidism Continue levothyroxine DVT Ppx: SQ heparin Code status: FULL per [facility] documentation PCP: Priscila Dispo: Admitted to med/surg Admission and Anticipated Discharge Date Admission Date: October 14, 2022 Results & Data Results & Data ([facility]) Vital Signs (Past 12 Hours) Vital Signs Temp Pulse Resp BP Pulse Ox Pulse Ox O2 Del Method 10/16/22 15:35 36.9 C 75 16 123/76 95 Room Air 10/16/22 11:50 99 10/16/22 07:38 36.4 C L 76 16 127/75 97 Room Air O2 Flow Rate 10/16/22 15:35 10/16/22 11:50 0 10/16/22 07:38
[2022-10-16] MEDS: LANTUS PER UNIT CHARGE SQ SCH (21:09)
[2022-10-17] MEDS: SODIUM CHLORIDE 0.9% 1000ML 1,000 ML IV SCH (04:04)
[2022-10-17] MEDS: LEVOTHYROXINE SODIUM 50 MCG TABLET PO SCH (05:20)
[2022-10-17] MEDS: INSULIN ASPART PER UNIT SC SCH ×4 (08:37→20:57)
[2022-10-17] MEDS: MELOXICAM 7.5 MG TAB PO SCH (08:42)
[2022-10-17] MEDS: CHOLECALCIFEROL 1,000 UNITS 25 MCG TAB PO SCH (08:43)
[2022-10-17] MEDS: ASPIRIN 81 MG ECTAB PO SCH (08:43)
[2022-10-17] MEDS: POTASSIUM CHLORIDE CRTAB 20 MEQ TABCR PO SCH (08:44)
[2022-10-17] MEDS: MECLIZINE 12.5 MG TAB PO SCH ×3 (08:44→20:18)
[2022-10-17] MEDS: CETIRIZINE HCL 10 MG TABLET PO SCH (08:44)
[2022-10-17] MEDS ORDERED: LANTUS PER UNIT CHARGE SQ SCH (09:00)
[2022-10-17] MEDS: HEPARIN SOD 5,000 UNIT/0.5 ML VIAL SQ SCH ×2 (09:17→20:18)
[2022-10-17] MEDS ORDERED: LOPERAMIDE HCL 2 MG CAP PO PRN (10:34)
[2022-10-17] MEDS ORDERED: LANTUS PER UNIT CHARGE SQ ONE (12:15)
[2022-10-17] MEDS: ATORVASTATIN 40 MG TAB PO SCH (16:32)
--- NOTE | 2022-10-17 17:35 | Hospitalist Progress Note ---
Date of Service October 17, 2022 Assessment & Plan (1) Gastroenteritis: Plan: Per admitting service notes with addendum: (1) Gastroenteritis: (2) Weakness: (3) Hyperglycemia due to type 1 diabetes mellitus: (4) Diabetes mellitus: (5) Hypertension: (6) Hypothyroidism: Plan: This is an 87-year-old male who resides at [facility] with PMH of type 1 diabetes, dyslipidemia, hypertension, hypothyroidism and other medical problems listed below who presents with confusion, decreased appetite and diarrhea. Gastroenteritis Weakness Acute metabolic encephalopathy Diarrhea, frequent urination, decreased appetite and confusion noted by personal-intermediate over the past few days Given 1L LR and magnesium supplementation in ED Alert and oriented x3 on exam although very hard of hearing CT head without acute intracranial abnormality Afebrile, no leukocytosis, magnesium being replaced, high-sensitivity troponin 21 likely demand in setting of dehydration. Procalcitonin elevated at 0.[address] abdomen pelvis due to diffuse lower abdominal pain on exam UA, stool culture pending Evaluate need for antibiotics after CT abdomen pelvis although presentation consistent with viral gastroenteritis at this time. Continue gentle IV fluids Fall precautions, PT OT evaluation 10/17 Patient awake and alert, pleasantly confused Stool PCR: Positive for norovirus no diarrhea yesterday, 1 episode today otherwise improving overall, appetite is good given IV fluids continue PRN Imodium monitor Hypomagnesemia resolved Hyperglycemia in setting of type 1 diabetes Initial BSG 193, given missed insulin dose Basal/bolus insulin while in-patient BSG AC HS consulted pharmacy glycemic service Hypertension BP 152/78. Monitor, add as needed antihypertensives if needed Blood pressure improved Hypothyroidism Continue levothyroxine DVT Ppx: SQ heparin Code status: FULL per [facility] documentation PCP: Priscila Dispo: from [facility], will need to transition to SNF per CM Admission and Anticipated Discharge Date Admission Date: October 14, 2022 Subjective ff up for Norovirus gastroenteritis, etc seen resting in bed, comfortable watching TV states he had 1 episode of diarrhea this morning no abdominal pain, nausea, fever/chills appetite is good had 1 small epistaxis in AM, resolved with ice pack and pressure no other symptoms Review of Systems Review of Systems: all noted and negative except for above Physical Exam Physical Exam: General- oriented x 2, not in distress, speaks in sentences with no effort or accessory muscle use Eyes- anicteric Neck- no JVD Lungs- clear BS BL Heart- normal rate, regular rhythm; no murmurs Abdomen- normal bowel sounds, nondistended, soft, no tenderness Extremities- no pretibial edema, no calf tenderness Neuro- alert, oriented x 2; no gross focal neurologic deficits Skin- warm & dry Results & Data Results & Data ([facility]) Vital Signs (Past 12 Hours) Vital Signs Temp Pulse Resp BP Pulse Ox O2 Del Method 10/17/22 15:07 37.1 C 71 16 122/69 97 Room Air 10/17/22 07:15 Room Air 10/17/22 07:49 36.6 C 73 16 130/73 96 Room Air all noted and reviewed including below
[2022-10-17] MEDS: LANTUS PER UNIT CHARGE SQ SCH (20:57)
[2022-10-18] MEDS: LEVOTHYROXINE SODIUM 50 MCG TABLET PO SCH (05:43)
[2022-10-18] MEDS: MECLIZINE 12.5 MG TAB PO SCH ×2 (08:37→14:03)
[2022-10-18] MEDS: MELOXICAM 7.5 MG TAB PO SCH (08:38)
[2022-10-18] MEDS: ASPIRIN 81 MG ECTAB PO SCH (08:38)
[2022-10-18] MEDS: CETIRIZINE HCL 10 MG TABLET PO SCH (08:38)
[2022-10-18] MEDS: HEPARIN SOD 5,000 UNIT/0.5 ML VIAL SQ SCH (08:39)
[2022-10-18] MEDS: CHOLECALCIFEROL 1,000 UNITS 25 MCG TAB PO SCH (08:39)
[2022-10-18] MEDS: POTASSIUM CHLORIDE CRTAB 20 MEQ TABCR PO SCH (08:39)
[2022-10-18] MEDS: INSULIN ASPART PER UNIT SC SCH ×3 (08:50→13:33)
[2022-10-18] MEDS ORDERED: LANTUS PER UNIT CHARGE SQ SCH (09:00)
--- NOTE | 2022-10-18 12:50 | Pharmacy Report ---
Pharmacy Glycemic Short Note 2 - Date of Service October 18, 2022 - Glycemic Short BSG Results (Last 24 hours): 10/17/22 10/17/22 10/18/22 17:15 20:33 08:01 POC Glucose 99 87 105 H 10/18/22 11:59 POC Glucose 194 H OUTPATIENT ANTIDIABETIC REGIMEN: * Lantus 55 units SC BID * Novolog SSI HbA1c: 9.9% (10/16/22) ASSESSMENT: 10/18 * Fasting 105 mg/dL this morning- continue 40 units QAM * BSGs below goal on tightened novolog parameters although still euglycemic. Will slightly loosen carb ratio and monitor today 10/17 * AH is a 87 year old male who presented on 10/14/22 from [facility] with confusion, diarrhea, and decreased appetite * Patient has history of T1DM (A1c suggests poor outpatient glycemic control) * BSGs have been reasonably controlled since time of admission * Received 53 units of insulin yesterday (40 units of basal and 13 units of prandial/correctional bolus) * Patient was originally NPO, now advanced to diet * Fasting BSG of 155 mg/dL (up from yesterday), will plan to give yesterday's total daily dose all at once this morning and allow for increased dose via scale this evening PLAN FOR INPATIENT GLYCEMIC CONTROL: * Hold outpatient oral diabetes medications * Basal insulin * Lantus 40 units SC daily * Bolus insulin * NovoLog per scale ACHS or Q6hrs while NPO * Goal Range: Low 120 mg/dL - High 160 mg/dL * Correction Factor: 25 mg/dL/unit * Nutritional / Prandial insulin per carb ratio of 1 unit per 10 grams CHO consumed
--- NOTE | 2022-10-18 13:41 | Hospitalist Progress Note ---
Date of Service October 18, 2022 Assessment & Plan (1) Gastroenteritis: Plan: (1) Gastroenteritis: (2) Weakness: (3) Hyperglycemia due to type 1 diabetes mellitus: (4) Diabetes mellitus: (5) Hypertension: (6) Hypothyroidism: Plan: This is an 87-year-old male who resides at [facility] with PMH of type 1 diabetes, dyslipidemia, hypertension, hypothyroidism and other medical problems listed below who presents with confusion, decreased appetite and diarrhea. Gastroenteritis Weakness Acute metabolic encephalopathy CT a/p: no acute abnormalities Stool culture + norovirus supportive care, has mild discomfort but states diarrhea has resolve he is improving Hypomagnesemia resolved Hyperglycemia in setting of type 1 diabetes Initial BSG 193, given missed insulin dose Basal/bolus insulin while in-patient BSG AC pharmacy on board for glycemic - appreciate input, bsg adequate Hypertension BP 145/74, 132/77. Monitor He is not on antihypertensive Hypothyroidism Continue levothyroxine DVT Ppx: SQ heparin Code status: FULL per [facility] documentation PCP: Priscila Dispo: from [facility], will need to transition to SNF per Admission and Anticipated Discharge Date Admission Date: October 14, 2022 Supervising Physician Co-Signing Physician Notes Seen and examined independently. Agree with above documentation by Katty Yoo PA-C. Patient awake, alert; not in any distress. Dizziness resolved. No episode of diarrhea. Discharged to [facility] Adjustment to his insulin regimen made. Subjective Patient was seen and examined in room 363-1. Follow up Gastroenteritis. States still has occasional abd discomfort but diarrhea has stopped. Tolerating diet. Denies f/c/s, chest pain, sob, n/v/d. Review of Systems Review of Systems: All systems reviewed & are unremarkable except as noted in HPI & below Physical Exam Physical Exam: Gen: WD/WN, NAD, A&O x2 HEENT: Normocephalic, atraumatic, conjunctivae moist, sclerae anicteric, mucous membranes moist. Lung: Clear to Auscultation bilaterally, no wheezes/rales/rhonchi Heart: Regular rate, regular rhythm, no murmurs, rubs, or gallops Abdomen: Soft, NT, ND +BS x 4 Extremities: No edema Skin: Warm, no rash, negative turgor. Results & Data Results & Data ([facility]) Vital Signs (Past 12 Hours) Vital Signs Temp Pulse Resp BP Pulse Ox O2 Del Method 10/18/22 13:22 36.8 C 80 17 145/74 H 98 Room Air 10/18/22 07:39 36.7 C 70 16 132/77 97 Room Air
--- NOTE | 2022-10-18 14:47 | Discharge Summary ---
Date of Service October 18, 2022 Admission HPI Per Admitting Provider This is an 87-year-old male who resides at [facility] with PMH of type 1 diabetes, dyslipidemia, hypertension, hypothyroidism and other medical problems listed below who presents with confusion, decreased appetite and diarrhea. At baseline per staff, patient can hold a conversation without issue but was notably less "with it" since last evening. Having more frequent urination, complaints of dizziness on 2 days of diarrhea. Notable decrease in appetite as well. Brought into ED for further evaluation, where he was also noted to be unstable on his feet while ambulating to the restroom. Per patient, uses walker at baseline. Still endorsing constant lower abdominal pain. Of note, exam limited due to patient being very hard of hearing. No fever, chills, chest pain, shortness of breath, nausea, vomiting or constipation. Admission Exam Per Admitting Provider PE: NAD Cardiac: Normal S1/S2, no murmur Lungs: CTA, no wheezing or crackles Abd: soft, ND, mild TTP of the lower abd MSK: no edema Psych: AAOx3 but heard of hearing, normal affect Principal Diagnosis Gastroenteritis due to norovirus Generalized Weakness Acute metabolic encephalopathy - resolved Hyperglycemia in setting of Type 1 Diabetes Discharge Exam Gen: WD/WN, NAD, A&O x2 HEENT: Normocephalic, atraumatic, conjunctivae moist, sclerae anicteric, mucous membranes moist. Lung: Clear to Auscultation bilaterally, no wheezes/rales/rhonchi Heart: Regular rate, regular rhythm, no murmurs, rubs, or gallops Abdomen: Soft, NT, ND +BS x 4 Extremities: No edema Skin: Warm, no rash, negative turgor. Discharge Data Allergies Allergy/AdvReac Type Severity Reaction Status Date / Time No Known Allergies Allergy Unverified 04/29/21 09:01 Consultations 10/14/22 16:51 ED Decision to Admit Stat Ordered Studies Chest X-Ray 10/14/22 12:42 XR chest 1V portable CLINICAL HISTORY: weak TECHNIQUE: Single frontal radiograph of the chest was obtained. Comparison: None available at the time of this dictation. FINDINGS: No lines and tubes are seen. Calcified aortic knob is seen. The lungs are clear. No evidence of pleural effusion or pneumothorax. IMPRESSION: No acute chest disease. ACT 112: Negative or not required by law. Electronically signed by: Hay Ryan M.D. 10/14/2022 1:[address] 10/14/22 12:42 CT head/brain wo con CLINICAL HISTORY: confusion Technique: Contiguous axial CT images of the head were acquired from the base of the skull to the vertex without intravenous contrast administration. Images were viewed in brain, subdural and bone windows. Automated dose lowering techniques and/or adjustment according to patient size were utilized for this exam. Comparison: Comparison is made to CT head 07/31/2019 Findings: Areas of decreased attenuation are present in the periventricular and subcortical white matter bilaterally consistent with small vessel ischemic disease. Generalized cerebral atrophy with commensurate enlargement of the v entricles, sulci, and cisterns is also present. There is no acute intracranial hemorrhage or evidence of acute territorial infarction. No shift of the midline structures, mass effect, or extra-axial abnormalities are shown. Atherosclerotic calcifications are present in the intracranial segments of the internal carotid arteries. Imaged portions of the paranasal sinuses and mastoid air cells are clear. The orbits appear normal. There are no acute fractures of the calvaria or scalp swelling. Impression: No acute intracranial hemorrhage, no evidence of acute territorial infarction or other acute intracranial disease process. ACT 112: Negative or not required by law. Electronically signed by: Hay Ryan M.D. 10/14/2022 2:09 PM Abdomen/Pelvis CT 10/14/22 17:46 CT abd pelvis IV con only CLINICAL HISTORY: lower abdominal pain TECHNIQUE: Helical axial images of the abdomen and pelvis were obtained and displayed. Automated dose lowering techniques and/or adjustment according to patient size were utilized for this exam. This exam was performed with intravenous contrast. CT DOSE: 1336.37 mGy.cm COMPARISON: None available at the time of this dictation. FINDINGS: Lower chest: No acute abnormality. Liver: Unremarkable. No focal lesions are seen. Gallbladder and biliary tree: Patient is status post cholecystectomy. No intra- or extrahepatic biliary ductal dilation. Pancreas: Unremarkable, no focal lesions. Spleen: Unremarkable. Adrenals: Unremarkable. Kidneys and ureters: Unremarkable. Bladder: Unremarkable. Reproductive organs: Unremarkable. Bowel: A hiatal hernia is seen. The appendix is not seen however there is no secondary signs of appendicitis. Lymph nodes Retroperitoneal: Unremarkable. Pelvic: Unremarkable. Mesenteric: Unremarkable. Peritoneum: Normal. Vessels: Atherosclerotic calcifications are seen. Abdominal wall: Unremarkable. Bones: Degenerative changes in the visualized spine. IMPRESSION: No acute abnormalities and in particular no evidence of diverticulitis or appendicitis. ACT 112: Negative or not required by law. Electronically signed by: Hay Ryan M.D. 10/14/2022 10:34 PM Diabetes Follow up Diabetes Follow-up Needed for HgbA1c >9% Hospital Course (1) Gastroenteritis: (1) Gastroenteritis: (2) Weakness: (3) Hyperglycemia due to type 1 diabetes mellitus: (4) Diabetes mellitus: (5) Hypertension: (6) Hypothyroidism: Plan: This is an 87-year-old male who resides at [facility] with PMH of type 1 diabetes, dyslipidemia, hypertension, hypothyroidism and other medical problems listed below who presents with confusion, decreased appetite and diarrhea. His stool culture tested positive for norovirus. He was treated with supportive care and symptoms gradually resolved. He remains generally weak and requires further rehab before return to personal care facility. He did have acute encephalopathy secondary to acute illness which has since resolved. He also had hypomagnesemia which has resolved. He does have a diagnosis of type 1 diabetes controlled with insulin regimen. His home regimen is Lantus 55 units twice daily as well as an aspart sliding scale. He did remain on a diabetic diet while inpatient although appetite has varied. He has only required Lantus 40 units once daily as well as various doses of aspart with meals based on sliding scale. I recommend continuing with lower dose while inpatient at [facility] and adjust as needed. On day of discharge he was in good spirits and vitals remained stable. His diarrhea has since resolved. Total Time Total Time Spent Total Time Spent (In Minutes): 60 minutes A total of 60 minutes were spent with greater than 50% of that time face to face with the patient, personally reviewing all current laboratories, imaging studies, past medication reconciliation, outpatient chart review, and discussion with specialists to collaborate care for the patient with attending. Please see attending documentation for corrections and/or additions. Discharge Plan Discharge Items Patient Disposition: Transfer Inpatient Rehab Fac Reason For Visit: CONFUSION,DIARRHEA,DECREASED APPETITE Discharge Diagnosis: Gastroenteritis due to norovirus Generalized Weakness Acute metabolic encephalopathy - resolved Hyperglycemia in setting of Type 1 Diabetes Condition on Discharge: Fair Activity: Resume your previous activity Lifting: Gradually increase as tolerated Bathing: No limitations Weightbearing: Full weightbearing Non-emergency contact: Primary Care Provider Call non-emergency contact if: you have any medication questions, your symptoms worsen, your pain is not controlled, your pain is worsening, your pain is unusual for you and your pain is concerning for you Follow-up/Referrals: FORTINO ROJAS [Primary Care Provider] - Diet: Carb Count or DM1, Low Fiber and Lactose Intolerant Addtl Attending Provider Instructions: MEDICATION CHANGES: Patients home dose of Lantus was 55 units SQ BID. Inpatient Lantus requirements is 40 units SQ once daily, recommend continuing this dose and adjust as necessary. Insulin Aspart, 2 units SQ TIDM, hold if BSG < 120 Recommend accu checks AC/HS SUMMARY OF TEST RESULTS: You tested positive for the Norovirus, which is a virus that causes diarrhea/Gastroenteritis. PENDING TEST RESULTS: None RECOMMENDATIONS FOR FOLLOW-UP: Please follow up with PCP upon discharge from [facility]. Continue all medications as prescribed. Your A1C was 9.9, which indicates uncontrolled diabetes. I encourage you to watch diet closely and work closely with your Primary Care Provider to obtain better control. Recommend repeat A1C in 3 months. Repeat CBC, CMP, Mag in 3 days. OTHER INSTRUCTIONS: Seek medical attention if you have: * temperature above 101 * chest pain or trouble breathing * abdominal pain, nausea, vomiting * diarrhea, dark stools or bloody stools * any unanswered questions or concerns Call 911 if symptoms are severe. Please take good care of yourself. It has been a pleasure taking care of you. Please take care of yourself. If you have any questions regarding your recent hospitalization please contact [facility] and [facility] Humph[facility]ys[facility] @ [phone]. 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) Discharge Prognosis: Stable Lines: None Urinary Catheter: No Medications and DC Order Prescriptions: New insulin glargine [Lantus U-100 Insulin] 100 unit/mL Solution 40 unit subcut QAM Qty: 10 0RF loperamide 2 mg Capsule 2 mg PO Q6H PRN (Reason: diar) Qty: 7 0RF Continued atorvastatin [Lipitor] 40 mg Tablet 40 mg PO DAILY@1700 meclizine 12.5 mg Tablet 12.5 mg PO TID Rx Instructions: Take at 0800,1200,1800 aspirin [Darrion Low Dose Aspirin] 81 mg Tablet,Delayed Release (Dr/Ec) 81 mg PO QAM meloxicam [Mobic] 7.5 mg Tablet 7.5 mg PO QAM levothyroxine [Synthroid] 50 mcg Tablet 50 mcg PO DAILYBB insulin aspart U-100 100 unit/mL (3 mL) Insulin Pen 0 unit SUBCUT UD Rx Instructions: sliding scale sennosides [senna] 8.6 mg Tablet 8.6 mg PO DAILY cetirizine 10 mg Tablet 10 mg PO DAILY cholecalciferol (vitamin D3) [Vitamin D3] 25 mcg (1,000 unit) Capsule 25 mcg PO DAILY potassium chloride 20 mEq Tablet Extended Release 20 meq PO DAILY Discontinued insulin glargine [Lantus Solostar U-100 Insulin] 100 unit/mL (3 mL) Insulin Pen 55 unit SUBCUT BID Discharge Orders: Discharge Order (Routine); Ordered 10/18/22 Ordered By: Katty Coulter/Other Patient Handouts: A1C Admission Data Admit Date/Time: 10/14/22 17:14 Attending Provider: Hermilo Yañez Admit Provider: Ely Gastelum Primary Care Provider: FORTINO ROJAS Other Providers: Ely Gastelum ; [facility] ; Katty Yoo Other Interventions: Discharge Summary Assessment (RN) Last Done: 10/18/22 15:58 Supervising Physician Co-Signing Physician Notes Patient seen and examined independently. Agree with above documentation by Katty Yoo PA-C. Patient awake, alert; not in any distress. Dizziness resolved. No episode of diarrhea. Discharged to [facility]. Adjustment to his insulin regimen made.
[2022-10-18] MEDS: ATORVASTATIN 40 MG TAB PO SCH (16:04)
== END 2022-10-18 17:00 | DRG 391 ==
LOC: ED 12:31 → SUATTDRO 17:14 → 3W 17:14

== ENCOUNTER 2022-12-11 16:00 | Inpatient (IN) ==
[2022-12-11] MEDS ORDERED: OPTIRAY 320 500ml IV ONE (16:13)
--- NOTE | 2022-12-11 16:31 | Emergency Department Note ---
Impression & Plan Stroke-like symptoms, Generalized weakness, Dementia ED Provider Note ED Provider Note NAME: ROCIO MONTES AGE:87 SEX: Male : 1935 ARRIVES VIA: ems INFORMANT: Patient ED PROVIDER(s): Erinn Suggs DO CHIEF COMPLAINT: Strokelike symptoms, weakness HPI: This is an 87-year-old male brought in by EMS from a local [facility] facility due to concern for increased weakness, garbled speech, slight facial droop, confusion which is worse compared to baseline. Patient does has a history of dementia however typically can perform ADLs. He is typically pleasantly confused per their report. Staff reported to EMS that he was last seen well at noon and his usual state of health. When they went to check on him later they noticed the change. Prehospital glucose was reassuring as were vital signs. No reported recent change in medications or illness per staff to EMS. Patient here knew his name, denies any pain or trouble breathing. Patient states he had pain earlier in the day today. PAST MEDICAL HISTORY:See Below PAST SURGICAL HISTORY:See Below FAMILY HISTORY:See Below SOCIAL HISTORY:See Below HOME MEDICATIONS:See Below ALLERGIES:See Below VITALS:See Below PHYSICAL EXAMINATION: GENERAL: alert, well appearing, well nourished, no distress, non-toxic EYE EXAM: normal conjunctiva, PERRL and EOM's grossly intact OROPHARYNX: no exudate, no erythema, lips, buccal mucosa, and tongue normal and mucous membranes are moist NECK: supple, no nuchal rigidity, no adenopathy, non-tender LUNGS: Clear to auscultation. Normal chest wall mechanics, no w/r/r HEART: no murmurs, S1 normal and S2 normal ABDOMEN: abdomen soft, non-tender, normo-active bowel sounds, no masses, no rebound or guarding. BACK: Back is symmetrical on inspection and there is no deformity, no midline tenderness, no CVA tenderness. SKIN: no rashes, petechiae, orbruising UPPER EXTREMITIES: upper extremities are grossly normal. FROM, nml pulses b/l. LOWER EXTREMITIES: No pitting edema. FROM, nml pulses b/l. NEURO EXAM: cranial nerves II-XII grossly intact, thickened/garbled speech, slight left facial droop,generalized weakness of arms bilaterally but symmetric, no gross weakness of legs. Gross sensation intact. No ataxia. NIHSS 2 Vital Signs: reviewed and remarkable Differential Diagnosis: Differential Diagnosis includes but is not limited to ischemic Stroke, hemorrhagic stroke, bells palsy, mass, neoplasm, migraine headache, seizure, subarachnoid hemorrhage, TIA, and transient global amnesia. MEDICAL DECISION MAKING: THis is an 87 yo male who presents to the ER with possible stroke like symptoms and generalized weakness. Labs drawn and sent, IV established, ekg and cxr performed at bedside and interpreted by me real time and pt sent for emergent neuro imaging after Stroke alert called. I contacted [facility] first to inquire about pt given hx of dementia. I then spoke with [facility] tele neurology. VS stable and patient afebrile. Labs reassuring and imaging without acute findings. Given presentation just before the 4.5 hour bre, low NIHSS, and possible alternative diagnosis, pt not a candidate for TNK. VS stable throughout. Case discussed with hospitalist for additional evaluation. Consultation(s): 163: Discussed with Dr. Melvin, [facility] teleneurology. Patient outside the window for TNK at this time. CT's pending. 165: Dr. Melvin called back. No other acute interventions, admit for continued stroke work up. Continue ASA and statin. 1722: Discussed with [facility] hospitalist service. ER Treatment Provided: See below 1625: Discussed with son, Wang, over the phone. Son states he did speak with his father over the weekend and his father reported he was feeling sick, however staff did not relay any illness to him. He states his father does have a history of dementia as well as a prior stroke at age 72 that changed his person ality but otherwise left him with no deficits. Diagnostics Interpreted By Me: -ECG: Normal sinus at 89, normal axis, normal intervals, no acute ST/T wave changes -Cardiac Monitoring: An order was placed for continuous cardiac monitoring. The monitor shows a rate of 92 with normal sinus rhythm. -Laboratory studies: As stated above and show below. -Imaging studies: X-ray Chest: A single view study of the chest was reviewed and was negative for cardiomegaly, focal infiltrate, effusion, pulmonary edema, or wide mediastinum. Triage Nursing Note Reviewed Prior/Outside Records Reviewed Procedures: [] Critical Care: [] Past Med/Surg History Medical History (Updated 12/12/22 @ 09:33 by Ric Doss MD) Diabetes mellitus Hypertension Hypothyroidism Surgical History Rectal prolapse prolapsed rectum repair Family History Other Cancer Depression Stroke Social History Smoking Status: Never smoker Hx Alcohol Use: No Hx Substance Use: No Preferred Language: Danish Communication Ability: Effective Communication Ability Comment: periods of confusion Broke Beater Required: No Beliefs That Will Affect Care: None Current Living Situation: Correction Feels Safe at Home: Yes Assistive Devices: Walker Allergies Allergies Allergy/AdvReac Type Severity Reaction Status Date / Time No Known Allergies Allergy Verified 12/11/22 16:18 Home Meds Home Medications Medication Instructions Recorded Confirmed aspirin 81 mg tablet,delayed 81 mg PO QAM 04/29/21 12/11/22 release (Darrion Low Dose Aspirin) atorvastatin 40 mg tablet (Lipitor) 40 mg PO DAILY@1700 04/29/21 12/11/22 levothyroxine 50 mcg tablet 50 mcg PO DAILYBB 04/29/21 12/11/22 (Synthroid) meclizine 12.5 mg tablet 12.5 mg PO TID Dizziness 04/29/21 12/11/22 cholecalciferol (vitamin D3) 25 25 mcg PO DAILY 10/14/22 12/11/22 mcg (1,000 unit) capsule (Vitamin D3) potassium chloride 20 mEq 20 meq PO DAILY 10/14/22 12/11/22 tablet,extended release sennosides 8.6 mg tablet (senna) 8.6 mg PO DAILY PRN Constipation 10/14/22 12/11/22 insulin glargine 100 unit/mL See Rx Instructions .Route .COMPLEX 12/11/22 12/11/22 subcutaneous solution (Lantus U-100 Insulin) insulin lispro 100 unit/mL 1 sliding scale dose subcut 12/11/22 12/11/22 subcutaneous pen (Humalog KwikPen USEASDIRECTD (U-100) Insulin) meloxicam 7.5 mg tablet 7.5 mg PO DAILY 12/11/22 12/11/22 Results & Data (ED) Vital Signs Vital Signs - 24 hr 12/11/22 16:08 12/11/22 16:13 12/11/22 16:05 Temperature 36.9 C Temperature Source Oral Pulse Rate 89 89 90 Pulse Rate from SpO2 Sensor 91 H Pulse Rhythm Regular Pulse Strength Normal Respiratory Rate 20 20 Respiratory Effort / Characteristics Non-Labored Spontaneous Respiratory Depth Normal Respiratory Pattern Regular Blood Pressure 147/68 H Blood Pressure Mean 94 Blood Pressure Position Lying Pulse Oximetry 97 98 Oxygen Delivery Method Room Air Sepsis Recent Fever Within 48 Hours No Sepsis New/Unexplained Change in Mental Status N/A Sepsis Action Taken by Nursing No Action Required 12/11/22 16:30 12/11/22 17:00 12/11/22 17:30 Temperature Temperature Source Pulse Rate 90 90 Pulse Rate from SpO2 Sensor 90 Pulse Rhythm Pulse Strength Respiratory Rate 13 28 H Respiratory Effort / Characteristics Respiratory Depth Respiratory Pattern Blood Pressure 118/62 Blood Pressure Mean 80 Blood Pressure Position Pulse Oximetry 96 Oxygen Delivery Method Sepsis Recent Fever Within 48 Hours Sepsis New/Unexplained Change in Mental Status Sepsis Action Taken by Nursing 12/11/22 17:30 Temperature Temperature Source Pulse Rate 78 Pulse Rate from SpO2 Sensor 79 Pulse Rhythm Pulse Strength Respiratory Rate 17 Respiratory Effort / Characteristics Respiratory Depth Respiratory Pattern Blood Pressure Blood Pressure Mean Blood Pressure Position Pulse Oximetry 94 Oxygen Delivery Method Sepsis Recent Fever Within 48 Hours Sepsis New/Unexplained Change in Mental Status Sepsis Action Taken by Nursing Laboratory Data 12/11/22 16:10 12/11/22 16:10 Lab Results 12/11/22 12/11/22 12/11/22 Range/Units 16:10 16:10 16:10 WBC 10.18 (4.8-10.8) K/ul RBC 4.68 L (4.70-6.10) M/uL Hgb 14.3 (14.0-18.0) g/dl Hct 42.8 (42.0-52.0) % MCV 91.5 (80.0-100.0) fL MCH 30.6 (25.0-34.0) pg MCHC 33.4 (32.0-36.0) g/dL RDW Std Deviation 44.6 (36.4-46.3) fL RDW Coeff of Santosh 13.2 (11.5-14.5) % Plt Count 259 (130-400) K/uL MPV 9.8 (9.4-12.4) fL Immature Gran % (Auto) 0.3 % Neut % (Auto) 67.7 % Lymph % (Auto) 17.6 % [place] % (Auto) 12.7 % Eos % (Auto) 1.2 % Baso % (Auto) 0.5 % Neut # (Auto) 6.90 H (1.40-6.50) K/uL Lymph # (Auto) 1.79 (1.2-3.4) K/uL [place] # (Auto) 1.29 H (0.11-0.59) K/uL Eos # (Auto) 0.12 (0-0.50) K/uL Baso # (Auto) 0.05 (0-0.2) K/uL Immature Gran # (Auto) 0.03 (0.01-0.20) K/uL PT 11.3 (9.0-12.0) Seconds INR 1.1 (0.9-1.1) APTT 30.9 (21.0-31.0) Seconds PTT Ratio 1.1 Sodium 139 (136-145) mmol/L Potassium 3.9 (3.5-5.1) mmol/L Chloride 105 (98-107) mmol/L Carbon Dioxide 28 (21-32) mmol/L Anion Gap 6 (3-11) BUN 17 (6-23) mg/dl Creatinine 1.08 (0.6-1.4) mg/dl Est Cr Clr Drug Dosing 50.5 ml/min Est GFR ( Amer) 70.2 ml/min Est GFR (Non-Af Amer) 60.5 ml/min BUN/Creatinine Ratio 15.7 (10-20) Glucose 72 (70-99(Fasting)) mg/dl Lactate (0.4-2.0) mmol/L Calcium 9.8 (8.5-10.1) mg/dl Magnesium 1.9 (1.7-2.4) mg/dl Total Bilirubin 1.1 H (0.2-1.0) mg/dl AST 13 (13-39) U/L ALT 14 (7-52) U/L Alkaline Phosphatase 66 (34-104) U/L Troponin I High Sens 12.0 (0-20) pg/ml Total Protein 8.1 (6.0-8.3) gm/dl Albumin 4.0 (3.4-5.0) gm/dl Globulin 4.1 H (2.5-4.0) gm/dl Albumin/Globulin Ratio 1.0 (0.9-2) Triglycerides 87 (0-150) mg/dl Cholesterol 130 (0-200) mg/dl LDL Cholesterol, Calc 68 mg/dl VLDL Cholesterol, Calc 17 (0-30) mg/dl HDL Cholesterol 45 mg/dl Cholesterol/HDL Ratio 2.9 (0-5) SARS-CoV-2 (PCR) (Negative) Influenza Type A (PCR) (Neg) Influenza Type B (PCR) (Neg) RSV (RT-PCR) (Neg) 12/11/22 12/11/22 Range/Units 17:02 17:09 WBC (4.8-10.8) K/ul RBC (4.70-6.10) M/uL Hgb (14.0-18.0) g/dl Hct (42.0-52.0) % MCV (80.0-100.0) fL MCH (25.0-34.0) pg MCHC (32.0-36.0) g/dL RDW Std Deviation (36.4-46.3) fL RDW Coeff of Santosh (11.5-14.5) % Plt Count (130-400) K/uL MPV (9.4-12.4) fL Immature Gran % (Auto) % Neut % (Auto) % Lymph % (Auto) % [place] % (Auto) % Eos % (Auto) % Baso % (Auto) % Neut # (Auto) (1.40-6.50) K/uL Lymph # (Auto) (1.2-3.4) K/uL [place] # (Auto) (0.11-0.59) K/uL Eos # (Auto) (0-0.50) K/uL Baso # (Auto) (0-0.2) K/uL Immature Gran # (Auto) (0.01-0.20) K/uL PT (9.0-12.0) Seconds INR (0.9-1.1) APTT (21.0-31.0) Seconds PTT Ratio Sodium (136-145) mmol/L Potassium (3.5-5.1) mmol/L Chloride (98-107) mmol/L Carbon Dioxide (21-32) mmol/L Anion Gap (3-11) BUN (6-23) mg/dl Creatinine (0.6-1.4) mg/dl Est Cr Clr Drug Dosing ml/min Est GFR ( Amer) ml/min Est GFR (Non-Af Amer) ml/min BUN/Creatinine Ratio (10-20) Glucose (70-99(Fasting)) mg/dl Lactate 1.1 (0.4-2.0) mmol/L Calcium (8.5-10.1) mg/dl Magnesium (1.7-2.4) mg/dl Total Bilirubin (0.2-1.0) mg/dl AST (13-39) U/L ALT (7-52) U/L Alkaline Phosphatase (34-104) U/L Troponin I High Sens (0-20) pg/ml Total Protein (6.0-8.3) gm/dl Albumin (3.4-5.0) gm/dl Globulin (2.5-4.0) gm/dl Albumin/Globulin Ratio (0.9-2) Triglycerides (0-150) mg/dl Cholesterol (0-200) mg/dl LDL Cholesterol, Calc mg/dl VLDL Cholesterol, Calc (0-30) mg/dl HDL Cholesterol mg/dl Cholesterol/HDL Ratio (0-5) SARS-CoV-2 (PCR) NEGATIVE (Negative) Influenza Type A (PCR) Negative (Neg) Influenza Type B (PCR) Negative (Neg) RSV (RT-PCR) Negative (Neg) Administered Medications Aspirin (Aspirin 81 Mg Ectab) 81 mg PO QAM [facility] Stop: 01/11/23 08:59 Last Admin: 12/12/22 10:21 Dose: Not Given Documented By: [facility] Heparin Sodium (Porcine) (Heparin Sod 5,000 Unit/0.5 Ml Vial) 5,000 units SQ Q8 [facility] Stop: 01/11/23 13:59 Last Admin: 12/12/22 13:06 Dose: 5,000 units Documented By: [facility] Dextrose/Lactated Ringer's (D5w And Lactated Ringers) 1,000 mls @ 75 mls/hr IV .[id number] [facility] Stop: 01/11/23 00:29 Last Infusion: 12/12/22 03:00 Dose: 75 mls/hr Documented By: Admin: 12/12/22 00:33 Dose: 50 mls/hr Documented By: CATHLEEN Insulin Aspart (Insulin Aspart Per Unit) 0 units SC ACHS [facility] Stop: 01/11/23 00:00 Last Admin: 12/12/22 12:51 Dose: 5 units Documented By: GIULIANO Co-signed By: RRR Levothyroxine Sodium (Levothyroxine Sodium 50 Mcg Tablet) 50 mcg PO DAILYBB [facility] Stop: 01/11/23 06:29 Last Admin: 12/12/22 06:05 Dose: Not Given Documented By: CATHLEEN Potassium Chloride (Potassium Chloride Crtab 20 Meq Tabcr) 20 meq PO DAILY [facility] Stop: 01/11/23 08:59 Last Admin: 12/12/22 10:21 Dose: Not Given Documented By: GIULIANO Vitamin D (Cholecalciferol 1,000 Units 25 Mcg Tab) 1,000 units PO DAILY [facility] Stop: 01/11/23 08:59 Last Admin: 12/12/22 10:21 Dose: Not Given Documented By: GIULIANO Discontinued Medications Gadobutrol (Gadobutrol 65ml Vial) 9.2 ml IV ONCE ONE Stop: 12/11/22 20:12 Last Admin: 12/11/22 20:11 Dose: 9.2 ml Documented By: [facility] Sodium Chloride (Nss 1000ml) 1,000 mls @ 125 mls/hr IV .Q8H [facility] Stop: 01/10/23 16:14 Last Infusion: 12/12/22 00:35 Dose: 0 mls/hr Documented By: Admin: 12/11/22 22:31 Dose: 125 mls/hr Documented By: Infusion: 12/11/22 22:31 Dose: 125 mls/hr Documented By: Admin: 12/11/22 16:53 Dose: 125 mls/hr Documented By: NEREYDA Acetaminophen (Ofirmev) 1,000 mg in 100 mls @ 400 mls/hr IV NOW STA Stop: 12/12/22 08:29 Last Infusion: 12/12/22 10:21 Dose: 0 mls/hr Documented By: Admin: 12/12/22 09:26 Dose: 400 mls/hr Documented By: GIULIANO Insulin Aspart (Insulin Aspart Per Unit) 0 units SC Q6 [facility] Stop: 01/11/23 00:00 Last Admin: 12/12/22 06:18 Dose: Not Given Documented By: Admin: 12/12/22 00:01 Dose: Not Given Documented By: CATHLEEN Insulin Glargine (Lantus Per Unit Charge) 0 units SQ BID [facility]; Protocol Stop: 01/10/23 20:59 Last Admin: 12/11/22 22:13 Dose: Not Given Documented By: CATHLEEN Insulin Glargine (Lantus Per Unit Charge) 5 units SQ NOW ONE Stop: 12/12/22 07:16 Last Admin: 12/12/22 07:54 Dose: 5 units Documented By: GIULIANO Co-signed By: JUSTINO Ioversol (Optiray 320 500ml) 112 ml IV ONCE ONE Stop: 12/11/22 16:14 Last Admin: 12/11/22 16:14 Dose: 112 ml Documented By: JASON Imaging Data Radiologist's Impression: Chest X-Ray 12/11/22 16:08 XR chest 1V portable CLINICAL HISTORY: neuro deficit, acute stroke suspected COMPARISON STUDY: Chest radiograph October 14, 2022. FINDINGS: Lung volumes are mildly diminished, unchanged. Mild bibasilar opacities favor atelectasis. There is no pneumothorax or pleural effusion. Cardiac size is normal. Mediastinal contours are normal. There is no evidence for pulmonary edema. IMPRESSION: No acute cardiopulmonary findings. No change in appearance of the chest. ACT 112: Negative or not required by law. Electronically signed by: Benjie Frank M.D. 12/11/2022 4:[address] 12/11/22 16:[address] OF THE BRAIN; CT ANGIOGRAM OF THE BRAIN; CT ANGIOGRAM OF THE NECK CLINICAL HISTORY: Stroke like symptoms. Neurological deficit. Right-sided facial droop. Slurred speech. COMPARISON STUDY: CT of the brain dated 10/14/2022. TECHNIQUE: Unenhanced axial CT scan of the brain is performed. Subsequently, following the IV administration of 112 of Optiray 320, CT angiogram of the head and neck was performed from the aortic arch to the vertex. Images are reviewed in the axial, sagittal, and coronal planes. 3-D MIPS images are created and assessed. IV contrast was administered without complication. All measurements were calculated based on NASCET criteria. A dose lowering technique was utilized adhering to the principles of ALARA. CT DOSE: 1305.09 mGy.cm FINDINGS: Brain parenchyma: There is age related involutional change noted in moderate sub cortical and periventricular microangiopathic disease. There is no hemorrhage, mass effect, or evidence of acute territorial ischemia by CT criteria. There is no evidence of enhancing mass lesion on the angiogram phase images. The ventricles, sulci, and cisterns are prominent secondary to change. Cheung-white matter differentiation is preserved. No extra-axial fluid collection is seen. Thoracic aorta: Visualized portions of the thoracic aorta are normal in caliber. The aortic arch demonstrates standard 3-vessel anatomy. Right carotid arterial system: The right common carotid artery is widely patent, as are the right internal and external carotid arteries. Calcified plaque is noted in the carotid bulb. Left carotid arterial system: The left common carotid artery is widely patent, as are the left internal and external carotid arteries. Calcified plaque is noted in the carotid bulb. Vertebral arteries: There is moderate stenosis at the origin of the left vertebral artery. The vertebral arteries are otherwise widely patent bilaterally noting left-sided dominance. Subclavian arteries: Widely patent bilaterally. Intracranial vasculature: There is atherosclerotic calcification of the cavernous carotid arteries. The internal carotid arteries are patent at the skull base, as are the anterior and middle cerebral arteries bilaterally. The vertebrobasilar system and posterior cerebral arteries are widely patent. The left vertebral artery is dominant. There is no aneurysm, high-grade stenosis, or focal vessel cut off seen throughout the intracranial circulation. Jugular veins: Patent bilaterally. Dural sinuses: Patent. Lung apices: Partially visualized upper lobe lung parenchyma appears clear. Soft tissues: The visualized pharyngeal soft tissues are normal in appearance noting angiographic phase technique. The oropharyngeal airway appears widely patent. The salivary and thyroid glands are normal in appearance. No cervical lymphadenopathy is seen. Skeletal structures: The skeletal structures are osteopenic. The calvarium appears intact. The cervical spine is maintained noting multilevel spondylosis. No lytic or blastic lesion is seen. Orbits: The bony orbits are intact. Orbital contents are normal as visualized noting bilateral ocular lens implants. Sinuses and mastoids: The paranasal sinuses are clear. The mastoid air cells are well pneumatized. IMPRESSION: 1. There is no hemorrhage, mass effect, or evidence of acute territorial ischemia by CT criteria. 2. Unremarkable CT angiogram of the brain. 3. 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 4. Otherwise unremarkable CT angiogram of the neck. ACT 112: Negative or not required by law. Electronically signed by: Liam Jones M.D. 12/11/2022 4:37 PM Head CTA 12/11/22 16:[address] OF THE BRAIN; CT ANGIOGRAM OF THE BRAIN; CT ANGIOGRAM OF THE NECK CLINICAL HISTORY: Stroke like symptoms. Neurological deficit. Right-sided facial droop. Slurred speech. COMPARISON STUDY: CT of the brain dated 10/14/2022. TECHNIQUE: Unenhanced axial CT scan of the brain is performed. Subsequently, following the IV administration of 112 of Optiray 320, CT angiogram of the head and neck was performed from the aortic arch to the vertex. Images are reviewed in the axial, sagittal, and coronal planes. 3-D MIPS images are created and assessed. IV contrast was administered without complication. All measurements were calculated based on NASCET criteria. A dose lowering technique was utilized adhering to the principles of ALARA. CT DOSE: 1305.09 mGy.cm FINDINGS: Brain parenchyma: There is age related involutional change noted in moderate subcortical and periventricular microangiopathic disease. There is no hemorrhage, mass effect, or evidence of acute territorial ischemia by CT cr iteria. There is no evidence of enhancing mass lesion on the angiogram phase images. The ventricles, sulci, and cisterns are prominent secondary to change. Cheung-white matter differentiation is preserved. No extra-axial fluid collection is seen. Thoracic aorta: Visualized portions of the thoracic aorta are normal in caliber. The aortic arch demonstrates standard 3-vessel anatomy. Right carotid arterial system: The right common carotid artery is widely patent, as are the right internal and external carotid arteries. Calcified plaque is noted in the carotid bulb. Left carotid arterial system: The left common carotid artery is widely patent, as are the left internal and external carotid arteries. Calcified plaque is noted in the carotid bulb. Vertebral arteries: There is moderate stenosis at the origin of the left vertebral artery. The vertebral arteries are otherwise widely patent bilaterally noting left-sided dominance. Subclavian arteries: Widely patent bilaterally. Intracranial vasculature: There is atherosclerotic calcification of the cavernous carotid arteries. The internal carotid arteries are patent at the skull base, as are the anterior and middle cerebral arteries bilaterally. The vertebrobasilar system and posterior cerebral arteries are widely patent. The left vertebral artery is dominant. There is no aneurysm, high-grade stenosis, or focal vessel cut off seen throughout the intracranial circulation. Jugular veins: Patent bilaterally. Dural sinuses: Patent. Lung apices: Partially visualized upper lobe lung parenchyma appears clear. Soft tissues: The visualized pharyngeal soft tissues are normal in appearance noting angiographic phase technique. The oropharyngeal airway appears widely patent. The salivary and thyroid glands are normal in appearance. No cervical lymphadenopathy is seen. Skeletal structures: The skeletal structures are osteopenic. The calvarium appears intact. The cervical spine is maintained noting multilevel spondylosis. No lytic or blastic lesion is seen. Orbits: The bony orbits are intact. Orbital contents are normal as visualized noting bilateral ocular lens implants. Sinuses and mastoids: The paranasal sinuses are clear. The mastoid air cells are well pneumatized. IMPRESSION: 1. There is no hemorrhage, mass effect, or evidence of acute territorial ischemia by CT criteria. 2. Unremarkable CT angiogram of the brain. 3. 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 4. Otherwise unremarkable CT angiogram of the neck. ACT 112: Negative or not required by law. Electronically signed by: Liam Jones M.D. 12/11/2022 4:37 PM Neck CTA 12/11/22 16:[address] OF THE BRAIN; CT ANGIOGRAM OF THE BRAIN; CT ANGIOGRAM OF THE NECK CLINICAL HISTORY: Stroke like symptoms. Neurological deficit. Right-sided facial droop. Slurred speech. COMPARISON STUDY: CT of the brain dated 10/14/2022. TECHNIQUE: Unenhanced axial CT scan of the brain is performed. Subsequently, following the IV administration of 112 of Optiray 320, CT angiogram of the head and neck was performed from the aortic arch to the vertex. Images are reviewed in the axial, sagittal, and coronal planes. 3-D MIPS images are created and assessed. IV contrast was administered without complication. All measurements were calculated based on NASCET criteria. A dose lowering technique was utilized adhering to the principles of ALARA. CT DOSE: 1305.09 mGy.cm FINDINGS: Brain parenchyma: There is age related involutional change noted in moderate subcortical and periventricular microangiopathic disease. There is no hemorrhage, mass effect, or evidence of acute territorial ischemia by CT criteria. There is no evidence of enhancing mass lesion on the angiogram phase images. The ventricles, sulci, and cisterns are prominent secondary to change. Cheung-white matter differentiation is preserved. No extra-axial fluid collection is seen. Thoracic aorta: Visualized portions of the thoracic aorta are normal in caliber. The aortic arch demonstrates standard 3-vessel anatomy. Right carotid arterial system: The right common carotid artery is widely patent, as are the right internal and external carotid arteries. Calcified plaque is noted in the carotid bulb. Left carotid arterial system: The left common carotid artery is widely patent, as are the left internal and external carotid arteries. Calcified plaque is noted in the carotid bulb. Vertebral arteries: There is moderate stenosis at the origin of the left vertebral artery. The vertebral arteries are otherwise widely patent bilaterally noting left-sided dominance. Subclavian arteries: Widely patent bilaterally. Intracranial vasculature: There is atherosclerotic calcification of the cavernous carotid arteries. The internal carotid arteries are patent at the skull base, as are the anterior and middle cerebral arteries bilaterally. The vertebrobasilar system and posterior cerebral arteries are widely patent. The le ft vertebral artery is dominant. There is no aneurysm, high-grade stenosis, or focal vessel cut off seen throughout the intracranial circulation. Jugular veins: Patent bilaterally. Dural sinuses: Patent. Lung apices: Partially visualized upper lobe lung parenchyma appears clear. Soft tissues: The visualized pharyngeal soft tissues are normal in appearance noting angiographic phase technique. The oropharyngeal airway appears widely patent. The salivary and thyroid glands are normal in appearance. No cervical lymphadenopathy is seen. Skeletal structures: The skeletal structures are osteopenic. The calvarium appears intact. The cervical spine is maintained noting multilevel spondylosis. No lytic or blastic lesion is seen. Orbits: The bony orbits are intact. Orbital contents are normal as visualized noting bilateral ocular lens implants. Sinuses and mastoids: The paranasal sinuses are clear. The mastoid air cells are well pneumatized. IMPRESSION: 1. There is no hemorrhage, mass effect, or evidence of acute territorial ischemia by CT criteria. 2. Unremarkable CT angiogram of the brain. 3. 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 4. Otherwise unremarkable CT angiogram of the neck. ACT 112: Negative or not required by law. Electronically signed by: Liam Jones M.D. 12/11/2022 4:37 PM Discharge Plan Visit Data Chief Complaint: Neuro Symptoms/Deficit Stated Complaint: WEAKNESS, LETHARGIC, ALTERED ED Provider: Erinn Suggs Discharge Problem: Stroke-like symptoms, Generalized weakness, Dementia Patient Disposition: Admitted As Inpatient Discharge Instructions Interventions: ED Discharge Assessment Last Done: 12/11/22 19:30
--- NOTE | 2022-12-11 16:38 | CT Scan Report ---
UNENHANCED CT OF THE BRAIN; CT ANGIOGRAM OF THE BRAIN; CT ANGIOGRAM OF THE NECK CLINICAL HISTORY: Stroke like symptoms. Neurological deficit. Right-sided facial droop. Slurred speec h. COMPARISON STUDY: CT of the brain dated 10/14/2022. TECHNIQUE: Unenhanced axial CT scan of the brain is performed. Subsequently, following the IV adminis tration of 112 of [employer] [address], CT angiogram of the head and neck was performed from the aortic arch t o the vertex. Images are reviewed in the axial, sagittal, and coronal planes. 3-D MIPS images are cre ated and assessed. IV contrast was administered without complication. All measurements were calculate d based on NASCET criteria. A dose lowering technique was utilized adhering to the principles of ALA RA. CT DOSE: 1305.09 mGy.cm FINDINGS: Brain parenchyma: There is age related involutional change noted in moderate subcortical and perivent ricular microangiopathic disease. There is no hemorrhage, mass effect, or evidence of acute territori al ischemia by CT criteria. There is no evidence of enhancing mass lesion on the angiogram phase imag es. The ventricles, sulci, and cisterns are prominent secondary to change. Cheung-white matter differen tiation is preserved. No extra-axial fluid collection is seen. Thoracic aorta: Visualized portions of the thoracic aorta are normal in caliber. The aortic arch demo nstrates standard 3-vessel anatomy. Right carotid arterial system: The right common carotid artery is widely patent, as are the right int ernal and external carotid arteries. Calcified plaque is noted in the carotid bulb. Left carotid arterial system: The left common carotid artery is widely patent, as are the left [employer] recruiter al and external carotid arteries. Calcified plaque is noted in the carotid bulb. Vertebral arteries: There is moderate stenosis at the origin of the left vertebral artery. The verteb ral arteries are otherwise widely patent bilaterally noting left-sided dominance. Subclavian arteries: Widely patent bilaterally. Intracranial vasculature: There is atherosclerotic calcification of the cavernous carotid arteries. T he internal carotid arteries are patent at the skull base, as are the anterior and middle cerebral ar teries bilaterally. The vertebrobasilar system and posterior cerebral arteries are widely patent. The left vertebral artery is dominant. There is no aneurysm, high-grade stenosis, or focal vessel cut of f seen throughout the intracranial circulation. Jugular veins: Patent bilaterally. Dural sinuses: Patent. Lung apices: Partially visualized upper lobe lung parenchyma appears clear. Soft tissues: The visualized pharyngeal soft tissues are normal in appearance noting angiographic pha se technique. The oropharyngeal airway appears widely patent. The salivary and thyroid glands are nor mal in appearance. No cervical lymphadenopathy is seen. Skeletal structures: The skeletal structures are osteopenic. The calvarium appears intact. The cervic al spine is maintained noting multilevel spondylosis. No lytic or blastic lesion is seen. Orbits: The bony orbits are intact. Orbital contents are normal as visualized noting bilateral ocular lens implants. Sinuses and mastoids: The paranasal sinuses are clear. The mastoid air cells are well pneumatized. IMPRESSION: 1. There is no hemorrhage, mass effect, or evidence of acute territorial ischemia by CT criteria. 2. Unremarkable CT angiogram of the brain. 3. 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 4. Otherwise unremarkable CT angiogram of the neck. ACT 112: Negative or not required by law. Electronically signed by: Liam Jones M.D. 12/11/2022 4:37 PM
[2022-12-11 16:46] LABS: Basophils # (auto) 0.05 K/uL (0-0.2); Basophils % (auto) 0.5 %; Eosinophils # (auto) 0.12 K/uL (0-0.50); Eosinophils % (auto) 1.2 %; Hematocrit (blood only) 42.8 % (42.0-52.0); Hemoglobin 14.3 g/dl (14.0-18.0); Immature Granulocytes # (auto) 0.03 K/uL (0.01-0.20); Immature Granulocytes % (auto) 0.3 %; Lymphocytes # (auto) 1.79 K/uL (1.2-3.4); Lymphocytes % (auto) 17.6 %; Mean Corpuscular Hemoglobin 30.6 pg (25.0-34.0); Mean Corpuscular Hgb Conc 33.4 g/dL (32.0-36.0); Mean Corpuscular Volume 91.5 fL (80.0-100.0); Mean Platelet Volume 9.8 fL (9.4-12.4); Monocytes # (auto) 1.29 K/uL (0.11-0.59); Monocytes % (auto) 12.7 %; Neutrophils % (auto) 67.7 %; Platelet Count 259 K/uL (130-400); RDW Coefficient of Variation 13.2 % (11.5-14.5); RDW Standard Deviation 44.6 fL (36.4-46.3); Red Blood Count 4.68 M/uL (4.70-6.10); White Blood Count 10.18 K/ul (4.8-10.8)
--- NOTE | 2022-12-11 16:47 | XRay Report ---
XR chest 1V portable CLINICAL HISTORY: neuro deficit, acute stroke suspected COMPARISON STUDY: Chest radiograph October 14, 2022. FINDINGS: Lung volumes are mildly diminished, unchanged. Mild bibasilar opacities favor atelectasis. There is no pneumothorax or pleural effusion. Cardiac size is normal. Mediastinal contours are normal . There is no evidence for pulmonary edema. IMPRESSION: No acute cardiopulmonary findings. No change in appearance of the chest. ACT 112: Negative or not required by law. Electronically signed by: Benjie Frank M.D. 12/11/2022 4:45 PM
[2022-12-11] MEDS: SODIUM CHLORIDE 0.9% 1000ML 1,000 ML IV SCH ×2 (16:53→22:31)
[2022-12-11 17:01] LABS: BUN Creatinine Ratio 15.7 (10-20); Bilirubin,Total 1.1 mg/dl (0.2-1.0); Calcium 9.8 mg/dl (8.5-10.1); Creatinine Clr Calc Pharmacy 50.5 ml/min; Est GFR (African American) 70.2 ml/min; Est GFR (Non-African American) 60.5 ml/min; Globulin 4.1 gm/dl (2.5-4.0); Magnesium 1.9 mg/dl (1.7-2.4); Potassium 3.9 mmol/L (3.5-5.1); Total Protein 8.1 gm/dl (6.0-8.3)
[2022-12-11 17:12] LABS: INR 1.1 (0.9-1.1); Partial Thromboplastin Ratio 1.1; Partial Thromboplastin Time 30.9 Seconds (21.0-31.0); Prothrombin Time 11.3 Seconds (9.0-12.0)
[2022-12-11] MEDS ORDERED: PHARMACIST DISCHARGE MED REC CONSULT PRN (17:51)
[2022-12-11] MEDS ORDERED: ALUMINUM/MAGNESIUM SUSP 30 ML UDC PO PRN (17:51)
[2022-12-11] MEDS ORDERED: POLYETHYLENE (MIRALAX) 17 GM PACK PO PRN (17:51)
[2022-12-11] MEDS ORDERED: ONDANSETRON INJ 2 MG/ML 2 ML VIAL IV PRN (17:51)
[2022-12-11] MEDS ORDERED: MAGNESIUM HYDROXIDE SUSP 30 ML UDC PO PRN (17:51)
--- NOTE | 2022-12-11 18:03 | History & Physical Report ---
Date of Service December 11, 2022 Assessment & Plan (1) Stroke-like symptoms: (2) Generalized weakness: (3) Dementia: (4) Hypothyroidism: (5) Diabetes mellitus: Plan 87 y/o presented to [facility] from [facility] with CVA-Like symptoms, garbled speech, slight facial droop, increased confusion. Has Dementia at baseline; but per staff can perform IADL's. Head CT, head/neck CTA; negative. Will order brain MRI. 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 Takes baby ASA + Statin at baseline. Neuro telehealth stroke alert performed with [facility] Dr. Melvin. No TNK intervention at this time; continue stroke work up. Neuro consult placed. Stroke like Symptoms: Generalized weakness: H/O TIA: -TIA when he was 70 years old with no residual deficits reported. -last well seen 1200 today by staff at [facility] -R leg weakness noted; resolved -Head CT, head and neck CTA: negative for Stroke, mass, ICH. -Brain MRI pending -additional stroke noted by pt son 17 years ago without residual effect -Stroke Alert [facility] Teleneuro consult with Dr. Melvin; outside of TNK tx period; continue stroke workup -Continue ASA and Statin as was taking outpatient -Neuro consult placed to Dr. Doss. -ABG pending -UA pending -PT/OT/ST orders placed Dementia: -At baseline; can perform ADL's independently -FAST score: difficult to determine at this time, but could be helpful once returned to baseline -decreased PO intake; consider goals of care conversation with pt son Diabetes Mellitus: Glucose 72 on admission -Takes Lantus and Humalog; hold while inpt -Start ACHS FSBS + SSI -Glycemic pharmacy Hypothyroidism: -Takes Synthroid opt; continue -Check TSH Disposition: PCP: Dr. Trevizo Code Status: Full code Next of kin: pt son Edward Yang [phone]; lives in [place] VTE Prophylaxis: Teds/SCDs; consider AC if brain MRI negative I spent a total of 88 minutes coordinating, documenting, and providing care for this patient excluding time spent in the performance of separately billed services. All of the aforementioned completed while collaborating with the assigned attending physician, Dr. Lpóez, for a full treatment plan. Please see their addendum for further details. History of Present Illness Chief Complaint: stroke like symptoms Primary Care Provider: [facility] Boswell is an 87-year-old male that was brought to the [facility] from [facility] due to staff noting a slight facial droop, increased confusion and garbled speech that was noted this afternoon. His last known well time is documented as noon today. Staff reports that when they checked on him after lunchtime they noticed a change with some left leg weakness. Patient most recent admission 10/14 to 10/18 for weakness for which he was discharged to [facility] prior to returning to [facility]. In the ED telemetry neuro [facility] consult placed with Dr. Melvin and he was noted to be outside the TNK window; continue stroke work-up for now. Patient does take aspirin low-dose and a statin at baseline. Head CT reports focal stenosis in the left vertebral artery however negative for acute stroke, mass or ICH. Head and neck CTA negative. Patient reportedly with decreased p.o. intake; maintenance fluids started in the ED. Additional PMH includes dementia, weakness, hypothyroidism, diabetes. Patient has a history of a TIA when he was 70 years old with no residual deficits reported. Staff in the ED were able to get an NIH of 7; patient was AAO x2 at that time. During my visit patient was arousable but drowsy and unable to follow commands. Patient glucose on admission was 72; recheck. Patient does not appear toxic and is hemodynamically stable and on room air. WBC 10.18; afebrile. ER physician able to speak with patient's son who lives in [place] to provide an update. I reached out to the patient's son Alessandro at [phone] and left him a voicemail. Patient to remain full code for now however further conversation warranted with son. Patient is listed as a full code per [facility] notes. Patient to be admitted for further evaluation and management. Please see A/P for further details. Allergies Allergy/AdvReac Type Severity Reaction Status Date / Time No Known Allergies Allergy Verified 12/11/22 16:18 Home Medications Medication Instructions Recorded Confirmed Type aspirin 81 mg tablet,delayed 81 mg PO QAM 04/29/21 12/11/22 History release (Darrion Low Dose Aspirin) atorvastatin 40 mg tablet (Lipitor) 40 mg PO DAILY@1700 04/29/21 12/11/22 History levothyroxine 50 mcg tablet 50 mcg PO DAILYBB 04/29/21 12/11/22 History (Synthroid) meclizine 12.5 mg tablet 12.5 mg PO TID Dizziness 04/29/21 12/11/22 History cholecalciferol (vitamin D3) 25 25 mcg PO DAILY 10/14/22 12/11/22 History mcg (1,000 unit) capsule (Vitamin D3) potassium chloride 20 mEq 20 meq PO DAILY 10/14/22 12/11/22 History tablet,extended release sennosides 8.6 mg tablet (senna) 8.6 mg PO DAILY PRN Constipation 10/14/22 12/11/22 History insulin lispro 100 unit/mL 1 sliding scale dose subcut 12/11/22 12/11/22 History subcutaneous pen (Humalog KwikPen USEASDIRECTD (U-100) Insulin) meloxicam 7.5 mg tablet 7.5 mg PO DAILY 12/11/22 12/11/22 History insulin glargine 100 unit/mL 20 unit (0.2 mL) subcut BID #10 mL 12/17/22 12/11/22 Rx subcutaneous solution (Lantus U-100 Insulin) Past Med/Surg History Medical History (Updated 12/12/22 @ 09:33 by Ric Doss MD) Diabetes mellitus Hypertension Hypothyroidism Surgical History Rectal prolapse prolapsed rectum repair Family History Other Cancer Depression Stroke Social History Smoking Status: Never smoker Hx Alcohol Use: No Hx Substance Use: No Preferred Language: Italian Communication Ability: Effective Communication Ability Comment: periods of confusion Radio Equipment Installer Required: No Beliefs That Will Affect Care: None Current Living Situation: Group Home Feels Safe at Home: Yes Assistive Devices: Walker Review of Systems Review of Systems: Unobtainable due to cognitive status Physical Exam Physical Exam: Neuro: AAOx1, PERRLA, no aphagia, memory changes, CNII-XII grossly intact HEENT: head normocephalic, moist mucus membranes CV: S1/S2, (-) M/G/R, (-) edema, cap refill < 3 seconds Resp: Lungs CTA in all guajardo. On RA GI: Abdomen S/NT/ND, Ax4 bowel sounds, (-) CVA tenderness Musculoskeletal: unable to participate in strength exam; no flacidity in limbs Skin: (-) rashes , (-) erythema. Psych: euthymic mood Results & Data Results & Data ([facility]) Vital Signs (Past 12 Hours) Vital Signs Temp Pulse Resp BP Pulse Ox O2 Del Method 12/11/22 16:13 36.9 C 89 20 147/68 H 97 Room Air 12/11/22 16:08 89 Laboratory Results Short CBC 12/11/22 Range/Units 16:10 WBC 10.18 (4.8-10.8) K/ul Hgb 14.3 (14.0-18.0) g/dl Hct 42.8 (42.0-52.0) % Plt Count 259 (130-400) K/uL BMP 12/11/22 16:10 Sodium 139 Potassium 3.9 Chloride 105 Carbon Dioxide 28 BUN 17 Creatinine 1.08 Glucose 72 Calcium 9.8 Liver Function 12/11/22 Range/Units 16:10 Total Bilirubin 1.1 H (0.2-1.0) mg/dl AST 13 (13-39) U/L ALT 14 (7-52) U/L Alkaline Phosphatase 66 (34-104) U/L Albumin 4.0 (3.4-5.0) gm/dl Diagnostic Findings Chest X-Ray 12/11/22 16:08 XR chest 1V portable CLINICAL HISTORY: neuro deficit, acute stroke suspected COMPARISON STUDY: Chest radiograph October 14, 2022. FINDINGS: Lung volumes are mildly diminished, unchanged. Mild bibasilar opacities favor atelectasis. There is no pneumothorax or pleural effusion. Cardiac size is normal. Mediastinal contours are normal. There is no evidence for pulmonary edema. IMPRESSION: No acute cardiopulmonary findings. No change in appearance of the chest. ACT 112: Negative or not required by law. Electronically signed by: Benjie Frank M.D. 12/11/2022 4:[address] 12/11/22 16:[address] OF THE BRAIN; CT ANGIOGRAM OF THE BRAIN; CT ANGIOGRAM OF THE NECK CLINICAL HISTORY: Stroke like symptoms. Neurological deficit. Right-sided facial droop. Slurred speech. COMPARISON STUDY: CT of the brain dated 10/14/2022. TECHNIQUE: Unenhanced axial CT scan of the brain is performed. Subsequently, following the IV administration of 112 of Optiray 320, CT angiogram of the head and neck was performed from the aortic arch to the vertex. Images are reviewed in the axial, sagittal, and coronal planes. 3-D MIPS images are created and assessed. IV contrast was administered without complication. All measurements were calculated based on NASCET criteria. A dose lowering technique was utilized adhering to the principles of ALARA. CT DOSE: 1305.09 mGy.cm FINDINGS: Brain parenchyma: There is age related involutional change noted in moderate subcortical and periventricular microangiopathic disease. There is no hemorrhage, mass effect, or evidence of acute territorial ischemia by CT criteria. There is no evidence of enhancing mass lesion on the angiogram phase images. The ventricles, sulci, and cisterns are prominent secondary to change. Cheung-white matter differentiation is preserved. No extra-axial fluid collection is seen. Thoracic aorta: Visualized portions of the thoracic aorta are normal in caliber. The aortic arch demonstrates standard 3-vessel anatomy. Right carotid arterial system: The right common carotid artery is widely patent, as are the right internal and external carotid arteries. Calcified plaque is noted in the carotid bulb. Left carotid arterial system: The left common carotid artery is widely patent, as are the left internal and external carotid arteries. Calcified plaque is noted in the carotid bulb. Vertebral arteries: There is moderate stenosis at the origin of the left vertebral artery. The vertebral arteries are otherwise widely patent bilaterally noting left-sided dominance. Subclavian arteries: Widely patent bilaterally. Intracranial vasculature: There is atherosclerotic calcification of the cavernous carotid arteries. The internal carotid arteries are patent at the skull base, as are the anterior and middle cerebral arteries bilaterally. The vertebrobasilar system and posterior cerebral arteries are widely patent. The left vertebral artery is dominant. There is no aneurysm, high-grade stenosis, or focal vessel cut off seen throughout the intracranial circulation. Jugular veins: Patent bilaterally. Dural sinuses: Patent. Lung apices: Partially visualized upper lobe lung parenchyma appears clear. Soft tissues: The visualized pharyngeal soft tissues are normal in appearance noting angiographic phase technique. The oropharyngeal airway appears widely patent. The salivary and thyroid glands are normal in appearance. No cervical lymphadenopathy is seen. Skeletal structures: The skeletal structures are osteopenic. The calvarium appears intact. The cervical spine is maintained noting multilevel spondylosis. No lytic or blastic lesion is seen. Orbits: The bony orbits are intact. Orbital contents are normal as visualized noting bilateral ocular lens implants. Sinuses and mastoids: The paranasal sinuses are clear. The mastoid air cells are well pneumatized. IMPRESSION: 1. There is no hemorrhage, mass effect, or evidence of acute territorial ischemia by CT criteria. 2. Unremarkable CT angiogram of the brain. 3. 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 4. Otherwise unremarkable CT angiogram of the neck. ACT 112: Negative or not required by law. Electronically signed by: Liam Jones M.D. 12/11/2022 4:37 PM Head CTA 12/11/22 16:[address] OF THE BRAIN; CT ANGIOGRAM OF THE BRAIN; CT ANGIOGRAM OF THE NECK CLINICAL HISTORY: Stroke like symptoms. Neurological deficit. Right-sided facial droop. Slurred speech. COMPARISON STUDY: CT of the brain dated 10/14/2022. TECHNIQUE: Unenhanced axial CT scan of the brain is performed. Subsequently, following the IV administration of 112 of Optiray 320, CT angiogram of the head and neck was performed from the aortic arch to the vertex. Images are reviewed in the axial, sagittal, and coronal planes. 3-D MIPS images are created and assessed. IV contrast was administered without complication. All measurements were calculated based on NASCET criteria. A dose lowering technique was utilized adhering to the principles of ALARA. CT DOSE: 1305.09 mGy.cm FINDINGS: Brain parenchyma: There is age related involutional change noted in moderate subcortical and periventricular microangiopathic disease. There is no hemorrhage, mass effect, or evidence of acute territorial ischemia by CT criteria. There is no evidence of enhancing mass lesion on the angiogram phase images. The ventricles, sulci, and cisterns are prominent secondary to change. Cheung-white matter differentiation is preserved. No extra-axial fluid collection is seen. Thoracic aorta: Visualized portions of the thoracic aorta are normal in caliber. The aortic arch demonstrates standard 3-vessel anatomy. Right carotid arterial system: The right common carotid artery is widely patent, as are the right internal and external carotid arteries. Calcified plaque is noted in the carotid bulb. Left carotid arterial system: The left common carotid artery is widely patent, as are the left internal and external carotid arteries. Calcified plaque is noted in the carotid bulb. Vertebral arteries: There is moderate stenosis at the origin of the left vertebral artery. The vertebral arteries are otherwise widely patent bilaterally noting left-sided dominance. Subclavian arteries: Widely patent bilaterally. Intracranial vasculature: There is atherosclerotic calcification of the cavernous carotid arteries. The internal carotid arteries are patent at the skull base, as are the anterior and middle cerebral arteries bilaterally. The vertebrobasilar system and posterior cerebral arteries are widely patent. The left vertebral artery is dominant. There is no aneurysm, high-grade stenosis, or focal vessel cut off seen throughout the intracranial circulation. Jugular veins: Patent bilaterally. Dural sinuses: Patent. Lung apices: Partially visualized upper lobe lung parenchyma appears clear. Soft tissues: The visualized pharyngeal soft tissues are normal in appearance noting angiographic phase technique. The oropharyngeal airway appears widely patent. The salivary and thyroid glands are normal in appearance. No cervical lymphadenopathy is seen. Skeletal structures: The skeletal structures are osteopenic. The calvarium appears intact. The cervical spine is maintained noting multilevel spondylosis. No lytic or blastic lesion is seen. Orbits: The bony orbits are intact. Orbital contents are normal as visualized noting bilateral ocular lens implants. Sinuses and mastoids: The paranasal sinuses are clear. The mastoid air cells are well pneumatized. IMPRESSION: 1. There is no hemorrhage, mass effect, or evidence of acute territorial ischemia by CT criteria. 2. Unremarkable CT angiogram of the brain. 3. 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 4. Otherwise unremarkable CT angiogram of the neck. ACT 112: Negative or not required by law. Electronically signed by: Liam Jones M.D. 12/11/2022 4:37 PM Neck CTA 12/11/22 16:[address] OF THE BRAIN; CT ANGIOGRAM OF THE BRAIN; CT ANGIOGRAM OF THE NECK CLINICAL HISTORY: Stroke like symptoms. Neurological deficit. Right-sided facial droop. Slurred speech. COMPARISON STUDY: CT of the brain dated 10/14/2022. TECHNIQUE: Unenhanced axial CT scan of the brain is performed. Subsequently, following the IV administration of 112 of Optiray 320, CT angiogram of the head and neck was performed from the aortic arch to the vertex. Images are reviewed in the axial, sagittal, and coronal planes. 3-D MIPS images are created and assessed. IV contrast was administered without complication. All measurements were calculated based on NASCET criteria. A dose lowering technique was utilized adhering to the principles of ALARA. CT DOSE: 1305.09 mGy.cm FINDINGS: Brain parenchyma: There is age related involutional change noted in moderate subcortical and periventricular microangiopathic disease. There is no hemorrhage, mass effect, or evidence of acute territorial ischemia by CT criteria. There is no evidence of enhancing mass lesion on the angiogram phase images. The ventricles, sulci, and cisterns are prominent secondary to change. Cheung-white matter differentiation is preserved. No extra-axial fluid collection is seen. Thoracic aorta: Visualized portions of the thoracic aorta are normal in caliber. The aortic arch demonstrates standard 3-vessel anatomy. Right carotid arterial system: The right common carotid artery is widely patent, as are the right internal and external carotid arteries. Calcified plaque is noted in the carotid bulb. Left carotid arterial system: The left common carotid artery is widely patent, as are the left internal and external carotid arteries. Calcified plaque is noted in the carotid bulb. Vertebral arteries: There is moderate stenosis at the origin of the left vertebral artery. The vertebral arteries are otherwise widely patent bilaterally noting left-sided dominance. Subclavian arteries: Widely patent bilaterally. Intracranial vasculature: There is atherosclerotic calcification of the cavernous carotid arteries. The internal carotid arteries are patent at the skull base, as are the anterior and middle cerebral arteries bilaterally. The vertebrobasilar system and posterior cerebral arteries are widely patent. The left vertebral artery is dominant. There is no aneurysm, high-grade stenosis, or focal vessel cut off seen throughout the intracranial circulation. Jugular veins: Patent bilaterally. Dural sinuses: Patent. Lung apices: Partially visualized upper lobe lung parenchyma appears clear. Soft tissues: The visualized pharyngeal soft tissues are normal in appearance noting angiographic phase technique. The oropharyngeal airway appears widely patent. The salivary and thyroid glands are normal in appearance. No cervical lymphadenopathy is seen. Skeletal structures: The skeletal structures are osteopenic. The calvarium appears intact. The cervical spine is maintained noting multilevel spondylosis. No lytic or blastic lesion is seen. Orbits: The bony orbits are intact. Orbital contents are normal as visualized noting bilateral ocular lens implants. Sinuses and mastoids: The paranasal sinuses are clear. The mastoid air cells are well pneumatized. IMPRESSION: 1. There is no hemorrhage, mass effect, or evidence of acute territorial ischemia by CT criteria. 2. Unremarkable CT angiogram of the brain. 3. 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 4. Otherwise unremarkable CT angiogram of the neck. ACT 112: Negative or not required by law. Electronically signed by: Liam Jones M.D. 12/11/2022 4:37 PM Code Status & VTE Plan Code Status Full Code in the event of cardiac or respiratory arrest VTE Prophylaxis Plan VTE Prophylaxis will be ordered: Yes Supervising Physician Co-Signing Physician Notes Patient was seen and examined independently. Chart reviewed. Case discussed with FRANCIS. Agree with assessment and plan as above MD Maribel
[2022-12-11 18:04] LABS: Influenza A virus by PCR Negative (Neg); Influenza B virus by PCR Negative (Neg); RSV by PCR Negative (Neg); SARS CoV2 RNA(COVID-19) Ceph NEGATIVE (Negative)
[2022-12-11] MEDS ORDERED: SENNA 8.6 MG TAB PO PRN (18:28)
[2022-12-11 18:35] LABS: Chol HDL Ratio 2.9 (0-5)
[2022-12-11] MEDS ORDERED: CARBOHYDRATES FOR HYPOGLYCEMIA PO PRN (18:41)
[2022-12-11] MEDS ORDERED: GLUCOSE 10 TAB/TUBE PO PRN (18:41)
[2022-12-11] MEDS ORDERED: DEXTROSE 50% 50 ML SYRINGE IV PRN (18:41)
[2022-12-11] MEDS ORDERED: PHARMACY GLYCEMIC MGMT CONSULT PRN (18:41)
[2022-12-11] MEDS ORDERED: GLUCOSE 40% GEL 15 GM TUBE PO PRN (18:41)
[2022-12-11] MEDS ORDERED: GLUCAGON FOR INJ 1 MG VIAL SQ PRN (18:41)
[2022-12-11 19:42] LABS: Base Excess ABG -0.1 mEq/L (-9-1.8); HCO3 ABG 24 mmol/L (19-24); Oxygen Saturation ABG 98.1 % (90-95); PCO2 ABG 36 mmHg (35-46); PO2 ABG 81 mmHg (80-95); pH ABG 7.43 (7.35-7.45)
[2022-12-11 19:50] LABS: Allen Test Positive (Pos)
[2022-12-11] MEDS ORDERED: GADOBUTROL 65ML VIAL IV ONE (20:11)
[2022-12-11] MEDS ORDERED: LANTUS PER UNIT CHARGE SQ SCH (21:00)
[2022-12-11] MEDS ORDERED: INSULIN ASPART PER UNIT CHARGE SC SCH (21:00)
[2022-12-11] MEDS ORDERED: HEPARIN SOD 5,000 UNIT/0.5 ML VIAL SQ SCH (21:00)
[2022-12-12] MEDS: INSULIN ASPART PER UNIT CHARGE SC SCH ×5 (00:01→21:22)
[2022-12-12] MEDS ORDERED: D5W AND LACTATED RINGERS 1,000 ML IV SCH (00:30)
[2022-12-12] MEDS: LEVOTHYROXINE SODIUM 50 MCG TABLET PO SCH (06:05)
[2022-12-12 06:40] LABS: Basophils # (auto) 0.03 K/uL (0-0.2); Basophils % (auto) 0.4 %; Eosinophils % (auto) 1.3 %; Hematocrit (blood only) 38.1 % (42.0-52.0); Hemoglobin 12.7 g/dl (14.0-18.0); Immature Granulocytes # (auto) 0.02 K/uL (0.01-0.20); Immature Granulocytes % (auto) 0.3 %; Mean Corpuscular Hemoglobin 30.7 pg (25.0-34.0); Mean Corpuscular Hgb Conc 33.3 g/dL (32.0-36.0); Mean Platelet Volume 9.9 fL (9.4-12.4); Monocytes % (auto) 13.8 %; Neutrophils # (auto) 5.53 K/uL (1.40-6.50); Neutrophils % (auto) 69.2 %; Platelet Count 232 K/uL (130-400); RDW Coefficient of Variation 13.3 % (11.5-14.5); Red Blood Count 4.14 M/uL (4.70-6.10); White Blood Count 7.98 K/ul (4.8-10.8)
[2022-12-12 06:51] LABS: BUN Creatinine Ratio 16.5 (10-20); Calcium 8.8 mg/dl (8.5-10.1); Chol HDL Ratio 3.2 (0-5); Creatinine Clr Calc Pharmacy 58.1 ml/min; Est GFR (African American) 79.9 ml/min; Est GFR (Non-African American) 68.9 ml/min; Magnesium 1.8 mg/dl (1.7-2.4); Potassium 3.9 mmol/L (3.5-5.1)
[2022-12-12] MEDS ORDERED: LANTUS PER UNIT CHARGE SQ ONE (07:15)
[2022-12-12 07:41] LABS: Estimated Average Glucose 220 mg/dl; Hemoglobin A1C 9.3 % (4.5-5.6)
--- NOTE | 2022-12-12 07:59 | Magnetic Resonance Report ---
MR brain wo/w con CLINICAL HISTORY: acute cva TECHNIQUE: Multiplanar and multisequence MR images of the brain were obtained prior to and following administration of gadolinium contrast. Comparison: Comparison is made to MRI brain 12/21/2014 and CTA head and neck 12/11/2022 FINDINGS: No abnormal restricted diffusion is identified. Foci of T2 and FLAIR hyperintensity are noted in the paraventricular areas consistent with chronic small vessel ischemic disease. Focal encephalomalacia i s in the right occipital lobe. Ex vacuo ventriculomegaly and sulcal enlargement is noted compatible w ith diffuse encephalomalacia. No mass or abnormal enhancement is seen. There is no mass effect or mid line shift. There is no evidence of acute intraparenchymal hemorrhage. No extra axial fluid collectio ns are seen. The corpus callosum, pituitary gland, and cerebellar tonsils appear grossly unremarkable . Flow voids of the major intracranial arterial vessels are identified. The imaged portions of the para nasal sinuses, mastoid air cells, and orbits are unremarkable. IMPRESSION: No acute abnormality and in particular no evidence of acute infarct. ACT 112: Negative or not required by law. Electronically signed by: Hay Ryan M.D. 12/12/2022 7:57 AM
[2022-12-12] MEDS ORDERED: ACETAMINOPHEN 1,000 MG/100 ML VIAL IV STA (08:15)
--- NOTE | 2022-12-12 09:30 | Neurology Consultation ---
Date of Consultation December 12, 2022 Assessment & Plan (1) Transient alteration of awareness: Plan NEUROLOGY CONSULTATION Assessment & Plan: Impression: pt with resolved speech change and his face droop appear to be old and baseline. mri brain negative for stroke. pt likely had hypoglycemia with dehydration and progression of his dementia likely contributed. Recommendations: -no further stroke work up needed. check UA and metabolic disorders. avoid hypoglycemia and hypotension and dehydration. will sign off. call again if new question. Dr. Ric Doss MD [facility] Neurology Chief Complaint: speech change. History of Present Illness: pt this morning alert and talking well. mri brain negative. overall stable. Admission/Initial HPI documentation: Elbert is an 87-year-old male that was brought to the [facility] from [facility] due to staff noting a slight facial droop, increased confusion and garbled speech that was noted this afternoon. His last known well time is documented as noon today. Staff reports that when they checked on him after lunchtime they noticed a change with some left leg weakness. Patient most recent admission 10/14 to 10/18 for weakness for which he was discharged to [facility] prior to returning to [facility]. In the ED telemetry neuro [facility] consult placed with Dr. Melvin and he was noted to be outside the TNK window; continue stroke work-up for now. Ovi acevedo does take aspirin low-dose and a statin at baseline. Head CT reports focal stenosis in the left vertebral artery however negative for acute stroke, mass or ICH. Head and neck CTA negative. Patient reportedly with decreased p.o. intake; maintenance fluids started in the ED. Additional PMH includes dementia, weakness, hypothyroidism, diabetes. Patient has a history of a TIA when he was 70 years old with no residual deficits reported. Staff in the ED were able to get an NIH of 7; patient was AAO x2 at that time. During my visit patient was arousable but drowsy and unable to follow commands. Patient glucose on admission was 72; recheck. Patient does not appear toxic and is hemodynamically stable and on room air. WBC 10.18; afebrile. ER physician able to speak with patient's son who lives in [place] to provide an update. I reached out to the patient's son Alessandro at [phone] and left him a voicemail. Patient to remain full code for now however further conversation warranted with son. Patient is listed as a full code per [facility] notes. Past Medical History: See chart Meds: See chart I personally reviewed all of the medications Social & Family History: See chart Review of Systems: Per initial HPI on admission. Physical Exam: GEN: NAD HEENT: Normocephalic Neuro: Mental status:Alert, he knew he was in hospital. he thought November. not sure of year. pt with baseline dementia. follows command well. No dysarthria or aphasia.No neglect. Fluent speech. No apraxia Cranial Nerves:II-XII intact Motor:Normal bulk and tone,5/5 strength x 4 extremities Coordination:Intact Reflexes:down going toes mile Sensation: Intact x 4 extremities to touch Chart reviewed I have spent more than 50% educating patient about potential diagnosis and neurological evaluation and coordinating care with patient's treatment team. Total time spent (including chart review and coordination of care): 80 min (this includes chart review). History of Present Illness Attending Physician: Amy López MD Allergies Allergy/AdvReac Type Severity Reaction Status Date / Time No Known Allergies Allergy Verified 12/11/22 16:18 Home Medications Medication Instructions Recorded Confirmed Type aspirin 81 mg tablet,delayed 81 mg PO QAM 04/29/21 12/11/22 History release (Darrion Low Dose Aspirin) atorvastatin 40 mg tablet (Lipitor) 40 mg PO DAILY@1700 04/29/21 12/11/22 History levothyroxine 50 mcg tablet 50 mcg PO DAILYBB 04/29/21 12/11/22 History (Synthroid) meclizine 12.5 mg tablet 12.5 mg PO TID Dizziness 04/29/21 12/11/22 History cholecalciferol (vitamin D3) 25 25 mcg PO DAILY 10/14/22 12/11/22 History mcg (1,000 unit) capsule (Vitamin D3) potassium chloride 20 mEq 20 meq PO DAILY 10/14/22 12/11/22 History tablet,extended release sennosides 8.6 mg tablet (senna) 8.6 mg PO DAILY PRN Constipation 10/14/22 12/11/22 History insulin glargine 100 unit/mL See Rx Instructions .Route .COMPLEX 12/11/22 12/11/22 History subcutaneous solution (Lantus U-100 Insulin) insulin lispro 100 unit/mL 1 sliding scale dose subcut 12/11/22 12/11/22 History subcutaneous pen (Humalog KwikPen USEASDIRECTD (U-100) Insulin) meloxicam 7.5 mg tablet 7.5 mg PO DAILY 12/11/22 12/11/22 History Patient History Medical History (Updated 12/12/22 @ 09:33 by Ric Doss MD) Diabetes mellitus Hypertension Hypothyroidism Surgical History Rectal prolapse prolapsed rectum repair Family History Other Cancer Depression Stroke Social History Smoking Status: Never smoker Hx Alcohol Use: No Hx Substance Use: No Preferred Language: Tamazight Communication Ability: Impaired Communication Ability Comment: periods of confusion Zoo Veterinarian Required: No Beliefs That Will Affect Care: None Current Living Situation: Long-Term Feels Safe at Home: Yes Assistive Devices: Walker Results & Data ([facility]) Vital Signs (Past 12 Hours) Vital Signs Temp Pulse Pulse Resp BP Pulse Ox O2 Del Method 12/12/22 07:22 38.2 C H 91 H 20 118/72 94 Room Air 12/12/22 04:00 37.1 C 88 18 117/67 96 Room Air 12/11/22 23:45 37.0 C 83 18 108/61 94 Room Air 12/11/22 22:02 84 12/11/22 22:00 37.3 C 20 137/71 98 Room Air
--- NOTE | 2022-12-12 09:49 | Pharmacy Report ---
Pharmacy Glycemic Short Note 2 - Date of Service December 12, 2022 - Glycemic Short BSG Results (Last 24 hours): 12/11/22 12/11/22 12/11/22 16:10 18:31 21:10 Glucose 72 POC Glucose 79 81 12/11/22 12/11/22 12/12/22 23:47 23:48 01:18 Glucose POC Glucose 62 L* 68 L* 79 12/12/22 12/12/22 05:52 06:17 Glucose 95 POC Glucose 120 H OUTPATIENT ANTIDIABETIC REGIMEN: * Lantus 50 units SQ qAM and 20 units PM * Novolog SS TIDM HbA1C: 9.3% ASSESSMENT: * Pt is an 87 year old male with a history of type 1 diabetes who presented from [facility] with stroke-like symptoms. Pharmacy consulted to assist with glycemic management. * Hypoglycemic on arrival- BSGs 46-73-12-79-120mg/dL since admission. Has been NPO. D5LR running at 75ml/hr. * Based on historical glycemic data, has required ~ 40 units of basal daily while inpatient and tolerating PO. Given NPO and hypoglycemic, will give 5 units of Lantus this AM to ensure some basal is on board given type 1. Monitor throughout the day for change in PO intake and will add an additional HS Lantus scale. Novolog ACHS moderate stress scale. PLAN FOR INPATIENT GLYCEMIC CONTROL: * Hold outpatient oral diabetes medications * Basal insulin * Lantus 5 units X 1 + HS scale pending BSG * Bolus insulin * NovoLog per scale ACHS or Q6hrs while NPO * Goal Range: Low 120 mg/dL - High 160 mg/dL * Correction Factor: 30 mg/dL/unit * Nutritional / Prandial insulin per carb ratio of 1 unit per 10 grams CHO consumed
[2022-12-12] MEDS: POTASSIUM CHLORIDE CRTAB 20 MEQ TABCR PO SCH (10:21)
[2022-12-12] MEDS: ASPIRIN 81 MG ECTAB PO SCH (10:21)
[2022-12-12] MEDS: CHOLECALCIFEROL 1,000 UNITS 25 MCG TAB PO SCH (10:21)
[2022-12-12] MEDS: HEPARIN SOD 5,000 UNIT/0.5 ML VIAL SQ SCH ×2 (13:06→21:22)
[2022-12-12 16:18] LABS: Appearance Urine Clear (Clear); Bacteria Urine Automated Negative (Negative); Bilirubin Urine Negative (Negative); Blood Urine 2+ (Negative); Color Urine Yellow; Glucose Urine UA 1+ (Negative); Ketones Urine Trace (Negative); Leukocyte Esterase Urine Negative (Negative); Nitrite Urine Negative (Negative); Protein Urine 1+ (Negative); Specific Gravity Urine 1.037 (1.000-1.030); Urobilinogen Urine Negative (Negative)
[2022-12-12] MEDS: ATORVASTATIN 40 MG TAB PO SCH (18:11)
[2022-12-12] MEDS: LANTUS PER UNIT CHARGE SQ SCH (21:22)
[2022-12-12] MEDS: ACETAMINOPHEN 325 MG TAB PO PRN (21:40)
[2022-12-12] MEDS: MELATONIN 3 MG TAB PO PRN (21:41)
--- NOTE | 2022-12-12 22:42 | Hospitalist Progress Note ---
Date of Service December 12, 2022 Assessment & Plan (1) Stroke-like symptoms: (2) Generalized weakness: (3) Dementia: (4) Hypothyroidism: (5) Diabetes mellitus: Plan 87 y/o presented to [facility] from [facility] with CVA-Like symptoms, garbled speech, slight facial droop, increased confusion. Has Dementia at baseline; but per staff can perform IADL's. Head CT, head/neck CTA; negative. Will order brain MRI. 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 Takes baby ASA + Statin at baseline. Neuro telehealth stroke alert performed with [facility] Dr. Melvin. No TNK intervention at this time; continue stroke work up. Neuro consult placed. Stroke like Symptoms: Generalized weakness: H/O TIA: Possible related to TIA vs Hypoglycemia Stroke Alert [facility] Teleneuro consult with Dr. Melvin; outside of TNK tx period; CT head showed no acute intracranial abnormality CTA head/neck showed no hemorrhage, mass effect, or evidence of acute territorial ischemia. 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 MRI head showed no acute intracranial abnormality seen ECHO showed normal left ventricular wall motion with ejection fraction 60 to 65% Neuro on board Case discussed with neurology recommended no further neuro testing Continue PT OT eval Continue aspirin, multivitamin Fall precaution Clinically improved Febrile Chest x-ray showed no evidence of pneumonia UA showed no indication for UTI No leukocytosis and procalcitonin normal We will check blood culture We will hold on antibiotic for now Continue monitor closely Dementia: At baseline; can perform ADL's independently stable Diabetes Mellitus: Glucose 72 on admission Will hold Lantus while inpatient Pharmacy on board for glycemic management Continue monitor blood sugar Hypothyroidism: TSH within normal limits Continue Synthroid Disposition: PCP: Dr. Trevizo Code Status: Full code Next of kin: pt son Edward Yang [phone]; lives in [place] VTE Prophylaxis: Teds/SCDs; consider AC if brain MRI negative Admission and Anticipated Discharge Date Admission Date: December 11, 2022 Subjective Pt was seen and examined for follow up of stroke like symptoms Sitting in chair with no acute distress Pt is much better today. He is wake watching TV He said that he does not have any problem Denies any chest pain, palpitation, dizziness and SOB Review of Systems Review of Systems: All systems reviewed & are unremarkable except as noted in Subjective Physical Exam Physical Exam: General- No acute distress Head- atraumatic Eyes- PERRL, EOMI, ENT- oropharynx clear Neck- supple, no JVD Lungs- clear to auscultation Heart- regular rhythm Abdomen- normal bowel sounds, soft, nontender Extremities- no calf tenderness Neuro- alert, awake, move all 4 extremities, speech fluent Skin- warm & dry 2144 Results & Data Results & Data ([facility]) Vital Signs (Past 12 Hours) Vital Signs Temp Pulse Pulse Resp BP Pulse Ox O2 Del Method 12/12/22 19:37 37.9 C H 100 H 18 122/65 95 Room Air 12/12/22 14:11 81 12/12/22 16:19 Room Air 12/12/22 16:04 37.5 C 89 18 125/64 99 Room Air 12/12/22 11:58 37.1 C 77 16 91/59 L 93 Room Air
[2022-12-13] MEDS: HEPARIN SOD 5,000 UNIT/0.5 ML VIAL SQ SCH ×3 (06:23→21:38)
[2022-12-13] MEDS: LEVOTHYROXINE SODIUM 50 MCG TABLET PO SCH (06:23)
[2022-12-13 08:47] LABS: Basophils # (auto) 0.03 K/uL (0-0.2); Basophils % (auto) 0.4 %; Eosinophils # (auto) 0.16 K/uL (0-0.50); Eosinophils % (auto) 2.2 %; Hematocrit (blood only) 37.6 % (42.0-52.0); Hemoglobin 12.8 g/dl (14.0-18.0); Immature Granulocytes # (auto) 0.03 K/uL (0.01-0.20); Immature Granulocytes % (auto) 0.4 %; Lymphocytes % (auto) 12.1 %; Mean Corpuscular Hemoglobin 30.3 pg (25.0-34.0); Mean Corpuscular Volume 89.1 fL (80.0-100.0); Mean Platelet Volume 9.3 fL (9.4-12.4); Monocytes # (auto) 1.08 K/uL (0.11-0.59); Monocytes % (auto) 14.6 %; Neutrophils # (auto) 5.21 K/uL (1.40-6.50); Neutrophils % (auto) 70.3 %; Platelet Count 284 K/uL (130-400); RDW Coefficient of Variation 13.1 % (11.5-14.5); RDW Standard Deviation 42.7 fL (36.4-46.3); Red Blood Count 4.22 M/uL (4.70-6.10); White Blood Count 7.41 K/ul (4.8-10.8)
[2022-12-13] MEDS ORDERED: LANTUS PER UNIT CHARGE SQ SCH ×2 (09:00→09:30)
[2022-12-13 09:10] LABS: Anion Gap 8 (3-11); BUN Creatinine Ratio 15.2 (10-20); Blood Urea Nitrogen 16 mg/dl (6-23); Carbon Dioxide 26 mmol/L (21-32); Chloride 103 mmol/L (98-107); Creatinine Clr Calc Pharmacy 53.5 ml/min; Est GFR (African American) 72.6 ml/min; Est GFR (Non-African American) 62.6 ml/min; Glucose 139 mg/dl (70-99(Fasting)); Sodium 137 mmol/L (136-145)
[2022-12-13] MEDS: INSULIN ASPART PER UNIT CHARGE SC SCH ×4 (09:15→20:29)
[2022-12-13] MEDS: ASPIRIN 81 MG ECTAB PO SCH (09:38)
[2022-12-13] MEDS: POTASSIUM CHLORIDE CRTAB 20 MEQ TABCR PO SCH (09:38)
[2022-12-13] MEDS: CHOLECALCIFEROL 1,000 UNITS 25 MCG TAB PO SCH (09:38)
--- NOTE | 2022-12-13 13:23 | Hospitalist Progress Note ---
Date of Service December 13, 2022 Assessment & Plan (1) Stroke-like symptoms: (2) Generalized weakness: (3) Dementia: (4) Hypothyroidism: (5) Diabetes mellitus: Plan 87 y/o presented to [facility] from [facility] with CVA-Like symptoms, garbled speech, slight facial droop, increased confusion. Has Dementia at baseline; but per staff can perform IADL's. Head CT, head/neck CTA; negative. Will order brain MRI. 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 Takes baby ASA + Statin at baseline. Neuro telehealth stroke alert performed with [facility] Dr. Melvin. No TNK intervention at this time; continue stroke work up. Neuro consult placed. Stroke like Symptoms: Generalized weakness: H/O TIA: Possible related to TIA vs Hypoglycemia Stroke Alert [facility] Teleneuro consult with Dr. Melvin; outside of TNK tx period; CT head showed no acute intracranial abnormality CTA head/neck showed no hemorrhage, mass effect, or evidence of acute territorial ischemia. 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 MRI head showed no acute intracranial abnormality seen ECHO showed normal left ventricular wall motion with ejection fraction 60 to 65% Neuro evaluation noted No further neuro testing Continue PT OT eval Continue aspirin, multivitamin Fall precaution Fever Had fever 38.2 yesterday. Chest x-ray showed no evidence of pneumonia UA showed no indication for UTI No leukocytosis and procalcitonin normal Will follow up blood culture in lab Continue to hold off antibiotics for now Continue monitor closely Dementia: Reportedly at baseline Diabetes Mellitus: Glucose 72 on admission Pharmacy on board for glycemic management Continue monitor blood sugar Hypothyroidism: TSH within normal limits Continue Synthroid Disposition: PCP: Dr. Trevizo Code Status: Full code Next of kin: pt ivet Yang [phone]; lives in [place] VTE Prophylaxis: Hep sq I spent a total of 45 minutes coordinating, documenting and providing care for this patient excluding time spent in performance of separately billed services Admission and Anticipated Discharge Date Admission Date: December 11, 2022 Subjective Patient seen and examined He is awake, alert, oriented to person only, sitting in chair Very poor historian Denied all complaints in review of system Physical Exam Constitutional: + well hydrated; no acute distress Eyes: PERRL, conjunctivae normal, anicteric sclerae ENMT: external ear and nose normal, oropharynx normal Respiratory: normal respiratory effort, lungs clear to auscultation Cardiovascular: Rate/Rhythm: regular rate and regular rhythm S1 S2 Gastrointestinal (Abdomen): normal bowel sounds, soft, nontender, no hepatosplenomegaly Musculoskeletal: No pedal edema Neurologic: PERRL, EOMI, follows simple commands Psychiatric: AOX1 (person only) Results & Data Results & Data Vital Signs (Past 12 Hours) Vital Signs Temp Pulse Resp BP Pulse Ox O2 Del Method 12/13/22 11:34 37.7 C H 86 18 119/75 94 Room Air 12/13/22 08:20 37.6 C H 88 18 112/72 94 Room Air 12/13/22 03:53 37.3 C 91 H 16 127/65 96 Room Air Laboratory Results Abnormal lab results 12/12/22 12/12/22 12/12/22 Range/Units 15:45 16:50 20:09 RBC (4.70-6.10) M/uL Hgb (14.0-18.0) g/dl Hct (42.0-52.0) % MPV (9.4-12.4) fL Lymph # (Auto) (1.2-3.4) K/uL Calhoun # (Auto) (0.11-0.59) K/uL Glucose (70-99(Fasting)) mg/dl POC Glucose 195 H 195 H (70-99) mg/dl Ur Specific Thurston 1.037 H (1.000-1.030) Urine Protein 1+ H (Negative) Urine Glucose (UA) 1+ H (Negative) Urine Ketones Trace H (Negative) Urine Blood 2+ H (Negative) Urine WBC (Auto) 5-10 H (0-5) /hpf Urine RBC (Auto) 5-10 H (0-4) /hpf U Epithel Cells (Auto) 10-20 H (0-5) /lpf 12/13/22 12/13/22 12/13/22 Range/Units 07:46 08:34 08:34 RBC 4.22 L (4.70-6.10) M/uL Hgb 12.8 L (14.0-18.0) g/dl Hct 37.6 L (42.0-52.0) % MPV 9.3 L (9.4-12.4) fL Lymph # (Auto) 0.90 L (1.2-3.4) K/uL Calhoun # (Auto) 1.08 H (0.11-0.59) K/uL Glucose 139 H (70-99(Fasting)) mg/dl POC Glucose 156 H (70-99) mg/dl Ur Specific Thurston (1.000-1.030) Urine Protein (Negative) Urine Glucose (UA) (Negative) Urine Ketones (Negative) Urine Blood (Negative) Urine WBC (Auto) (0-5) /hpf Urine RBC (Auto) (0-4) /hpf U Epithel Cells (Auto) (0-5) /lpf 12/13/22 Range/Units 11:32 RBC (4.70-6.10) M/uL Hgb (14.0-18.0) g/dl Hct (42.0-52.0) % MPV (9.4-12.4) fL Lymph # (Auto) (1.2-3.4) K/uL Calhoun # (Auto) (0.11-0.59) K/uL Glucose (70-99(Fasting)) mg/dl POC Glucose 152 H (70-99) mg/dl Ur Specific Thurston (1.000-1.030) Urine Protein (Negative) Urine Glucose (UA) (Negative) Urine Ketones (Negative) Urine Blood (Negative) Urine WBC (Auto) (0-5) /hpf Urine RBC (Auto) (0-4) /hpf U Epithel Cells (Auto) (0-5) /lpf
[2022-12-13] MEDS: ATORVASTATIN 40 MG TAB PO SCH (17:48)
[2022-12-13] MEDS: ACETAMINOPHEN 325 MG TAB PO PRN (21:38)
[2022-12-13] MEDS: MELATONIN 3 MG TAB PO PRN (21:38)
[2022-12-13] MEDS: LANTUS PER UNIT CHARGE SQ SCH (21:39)
[2022-12-14] MEDS: LEVOTHYROXINE SODIUM 50 MCG TABLET PO SCH (05:58)
[2022-12-14] MEDS: HEPARIN SOD 5,000 UNIT/0.5 ML VIAL SQ SCH ×3 (05:58→22:35)
[2022-12-14 07:30] LABS: Basophils # (auto) 0.05 K/uL (0-0.2); Basophils % (auto) 0.6 %; Eosinophils # (auto) 0.07 K/uL (0-0.50); Eosinophils % (auto) 0.8 %; Hematocrit (blood only) 39.6 % (42.0-52.0); Immature Granulocytes # (auto) 0.04 K/uL (0.01-0.20); Immature Granulocytes % (auto) 0.5 %; Lymphocytes # (auto) 0.89 K/uL (1.2-3.4); Lymphocytes % (auto) 10.3 %; Mean Corpuscular Hemoglobin 29.8 pg (25.0-34.0); Mean Corpuscular Hgb Conc 32.8 g/dL (32.0-36.0); Mean Corpuscular Volume 90.8 fL (80.0-100.0); Mean Platelet Volume 10.6 fL (9.4-12.4); Monocytes # (auto) 1.27 K/uL (0.11-0.59); Monocytes % (auto) 14.7 %; Neutrophils % (auto) 73.1 %; Platelet Count 288 K/uL (130-400); RDW Coefficient of Variation 12.9 % (11.5-14.5); RDW Standard Deviation 42.5 fL (36.4-46.3); Red Blood Count 4.36 M/uL (4.70-6.10); White Blood Count 8.62 K/ul (4.8-10.8)
[2022-12-14 07:41] LABS: Creatinine Clr Calc Pharmacy 55.8 ml/min; Est GFR (Non-African American) 66.4 ml/min; Potassium 3.1 mmol/L (3.5-5.1)
[2022-12-14] MEDS ORDERED: POTASSIUM CHLORIDE CRTAB 20 MEQ TABCR PO STA (08:33)
[2022-12-14] MEDS: INSULIN ASPART PER UNIT CHARGE SC SCH ×4 (08:33→22:34)
[2022-12-14] MEDS ORDERED: LANTUS PER UNIT CHARGE SQ SCH (09:00)
[2022-12-14] MEDS: CHOLECALCIFEROL 1,000 UNITS 25 MCG TAB PO SCH (09:09)
[2022-12-14] MEDS: ASPIRIN 81 MG ECTAB PO SCH (09:10)
[2022-12-14] MEDS: POTASSIUM CHLORIDE CRTAB 20 MEQ TABCR PO SCH (09:14)
--- NOTE | 2022-12-14 14:04 | Pharmacy Report ---
Pharmacy Glycemic Short Note 2 - Date of Service December 14, 2022 - Glycemic Short BSG Results (Last 24 hours): 12/13/22 12/13/22 12/14/22 16:38 20:16 06:30 Glucose 102 H POC Glucose 164 H 142 H 12/14/22 12/14/22 07:46 11:32 Glucose POC Glucose 114 H 154 H OUTPATIENT ANTIDIABETIC REGIMEN: * Lantus 50 units SQ qAM and 20 units PM * Novolog SS TIDM HbA1C: 9.3% ASSESSMENT: 12/14: * Patient received total of 34 units of insulin yesterday; 30 units basal and 4 units bolus. * BSGs yesterday were 014-512-747-142 mg/dl. Fasting BSG today was 114 mg/dl. * Continued with basal 10 units in the AM and between 10-30 units at HS based on BSG. Also Novolog continued the same as yesterday. 12/12/22: * Pt is an 87 year old male with a history of type 1 diabetes who presented from [facility] with stroke-like symptoms. Pharmacy consulted to assist with glycemic management. * Hypoglycemic on arrival- BSGs 98-00-54-79-120mg/dL since admission. Has been NPO. D5LR running at 75ml/hr. * Based on historical glycemic data, has required ~ 40 units of basal daily while inpatient and tolerating PO. Given NPO and hypoglycemic, will give 5 units of Lantus this AM to ensure some basal is on board given type 1. Monitor throughout the day for change in PO intake and will add an additional HS Lantus scale. Novolog ACHS moderate stress scale. PLAN FOR INPATIENT GLYCEMIC CONTROL: * Basal insulin * Lantus 10 units SQ QAM * Lantus 10-30 units scale at HS pending BSG * Bolus insulin * NovoLog per scale ACHS or Q6hrs while NPO * Goal Range: Low 120 mg/dL - High 150 mg/dL * Correction Factor: 30 mg/dL/unit * Nutritional / Prandial insulin per carb ratio of 1 unit per 10 grams CHO consumed
--- NOTE | 2022-12-14 16:01 | Hospitalist Progress Note ---
Date of Service December 14, 2022 Assessment & Plan (1) Stroke-like symptoms: (2) Generalized weakness: (3) Dementia: (4) Hypothyroidism: (5) Diabetes mellitus: Plan 87 y/o presented to [facility] from [facility] with CVA-Like symptoms, garbled speech, slight facial droop, increased confusion. Has Dementia at baseline; but per staff can perform IADL's. Head CT, head/neck CTA; negative. Will order brain MRI. 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 Takes baby ASA + Statin at baseline. Neuro telehealth stroke alert performed with [facility] Dr. Melvin. No TNK intervention at this time; continue stroke work up. Neuro consult placed. Stroke like Symptoms: Generalized weakness: H/O TIA: Possible related to TIA vs Hypoglycemia Stroke Alert [facility] Teleneuro consult with Dr. Melvin; outside of TNK tx period; CT head showed no acute intracranial abnormality CTA head/neck showed no hemorrhage, mass effect, or evidence of acute territorial ischemia. 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 MRI head showed no acute intracranial abnormality seen ECHO showed normal left ventricular wall motion with ejection fraction 60 to 65% Neuro evaluation noted No further neuro testing Continue PT OT eval Continue aspirin, multivitamin Fall precaution Fever Had fever 38.2 on 12/12/22. No fever since though temps had been 37s Chest x-ray showed no evidence of pneumonia UA showed no indication for UTI No leukocytosis and procalcitonin normal Blood culture negative Dementia: Reportedly at baseline Diabetes Mellitus: Glucose 72 on admission Pharmacy on board for glycemic management Continue monitor blood sugar Will reduce home insulin regimen on discharge Hypothyroidism: TSH within normal limits Continue Synthroid Replete hypokalemia and monitor Disposition: PCP: Dr. Trevizo Code Status: Full code Next of kin: pt son Edward Yang [phone]; lives in [place] VTE Prophylaxis: Hep sq PT recommending rehab Discussed with CM who is working on placement I spent a total of 35 minutes coordinating, documenting and providing care for this patient excluding time spent in performance of separately billed services Admission and Anticipated Discharge Date Admission Date: December 11, 2022 Subjective Patient seen and examined He is awake, alert, oriented to person and place today Reported some sore throat earlier but stated none at this time Denied cough, shortness of breath, chest pain Denied fever, chills Denied abd pain, nausea, vomiting Physical Exam Constitutional: + well hydrated; no acute distress Eyes: PERRL, conjunctivae normal, anicteric sclerae ENMT: external ear and nose normal, oropharynx normal Respiratory: normal respiratory effort, lungs clear to auscultation Cardiovascular: Rate/Rhythm: regular rate and regular rhythm S1 S2 Gastrointestinal (Abdomen): normal bowel sounds, soft, nontender, no hepatosplenomegaly Musculoskeletal: No pedal edema Neurologic: PERRL, EOMI, accommodation nl, no face palsy, no dysarthria Alert and oriented to person and place Follows commands Results & Data Results & Data Vital Signs (Past 12 Hours) Vital Signs Temp Pulse Pulse Resp BP Pulse Ox O2 Del Method 12/14/22 15:48 37.6 C H 80 18 108/66 96 Room Air 12/14/22 15:29 85 12/14/22 07:00 102 H 12/14/22 11:45 36.9 C 83 19 112/66 96 Room Air 12/14/22 07:32 37.5 C 86 19 117/70 95 Room Air Laboratory Results Abnormal lab results 12/13/22 12/13/22 12/14/22 Range/Units 16:38 20:16 06:30 RBC 4.36 L (4.70-6.10) M/uL Hgb 13.0 L (14.0-18.0) g/dl Hct 39.6 L (42.0-52.0) % Lymph # (Auto) 0.89 L (1.2-3.4) K/uL Stanton # (Auto) 1.27 H (0.11-0.59) K/uL Potassium (3.5-5.1) mmol/L Glucose (70-99(Fasting)) mg/dl POC Glucose 164 H 142 H (70-99) mg/dl 12/14/22 12/14/22 12/14/22 Range/Units 06:30 07:46 11:32 RBC (4.70-6.10) M/uL Hgb (14.0-18.0) g/dl Hct (42.0-52.0) % Lymph # (Auto) (1.2-3.4) K/uL Stanton # (Auto) (0.11-0.59) K/uL Potassium 3.1 L D (3.5-5.1) mmol/L Glucose 102 H (70-99(Fasting)) mg/dl POC Glucose 114 H 154 H (70-99) mg/dl
[2022-12-14] MEDS: ATORVASTATIN 40 MG TAB PO SCH (17:21)
[2022-12-14] MEDS: LANTUS PER UNIT CHARGE SQ SCH (22:35)
[2022-12-15] MEDS: HEPARIN SOD 5,000 UNIT/0.5 ML VIAL SQ SCH ×3 (04:14→21:05)
[2022-12-15] MEDS: LEVOTHYROXINE SODIUM 50 MCG TABLET PO SCH (04:15)
[2022-12-15] MEDS: CHOLECALCIFEROL 1,000 UNITS 25 MCG TAB PO SCH (08:23)
[2022-12-15] MEDS: ASPIRIN 81 MG ECTAB PO SCH (08:23)
[2022-12-15] MEDS: LANTUS PER UNIT CHARGE SQ SCH ×2 (08:23→20:43)
[2022-12-15] MEDS: INSULIN ASPART PER UNIT CHARGE SC SCH ×4 (08:23→20:43)
[2022-12-15] MEDS: POLYETHYLENE (MIRALAX) 17 GM PACK PO SCH (08:23)
[2022-12-15] MEDS: POTASSIUM CHLORIDE CRTAB 20 MEQ TABCR PO SCH (08:24)
[2022-12-15 08:32] LABS: BUN Creatinine Ratio 18.6 (10-20); Calcium 8.7 mg/dl (8.5-10.1); Creatinine Clr Calc Pharmacy 55.2 ml/min; Est GFR (African American) 75.2 ml/min; Est GFR (Non-African American) 64.9 ml/min; Magnesium 1.9 mg/dl (1.7-2.4); Potassium 3.8 mmol/L (3.5-5.1)
[2022-12-15] MEDS ORDERED: COUGH DROP (SUGAR FREE) LOZ 24 LOZ/1 BOX BUCCAL PRN (09:54)
--- NOTE | 2022-12-15 10:17 | Hospitalist Progress Note ---
Date of Service December 15, 2022 Assessment & Plan (1) Stroke-like symptoms: (2) Generalized weakness: (3) Dementia: (4) Hypothyroidism: (5) Diabetes mellitus: Plan 87 y/o presented to [facility] from [facility] with CVA-Like symptoms, garbled speech, slight facial droop, increased confusion. Has Dementia at baseline; but per staff can perform IADL's. Head CT, head/neck CTA; negative. Will order brain MRI. 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 Takes baby ASA + Statin at baseline. Neuro telehealth stroke alert performed with [facility] Dr. Melvin. No TNK intervention at this time; continue stroke work up. Neuro consult placed. Stroke like Symptoms: Generalized weakness: H/O TIA: Possible related to TIA vs Hypoglycemia Stroke Alert [facility] Teleneuro consult with Dr. Melvin; outside of TNK tx period; CT head showed no acute intracranial abnormality CTA head/neck showed no hemorrhage, mass effect, or evidence of acute territorial ischemia. 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 MRI head showed no acute intracranial abnormality seen ECHO showed normal left ventricular wall motion with ejection fraction 60 to 65% Neuro evaluation noted No further neuro testing Continue PT OT eval Continue aspirin, multivitamin Fall precaution Fever Had fever 38.2 on 12/12/22. No fever since though temps had been 37s Chest x-ray showed no evidence of pneumonia UA showed no indication for UTI No leukocytosis and procalcitonin normal Blood culture negative Cepachol lozenge prn for sore throat Dementia: Reportedly at baseline Diabetes Mellitus: Glucose 72 on admission Pharmacy on board for glycemic management Continue monitor blood sugar Will reduce home insulin regimen on discharge Hypothyroidism: TSH within normal limits Continue Synthroid Disposition: PCP: Dr. Trevizo Code Status: Full code Next of kin: pt son Edward Yang [phone]; lives in [place] VTE Prophylaxis: Hep sq PT recommending rehab Discussed with CM who is working on placement I spent a total of 30 minutes coordinating, documenting and providing care for this patient excluding time spent in performance of separately billed services Admission and Anticipated Discharge Date Admission Date: December 11, 2022 Subjective Patient seen and examined He is awake, alert, oriented to person and place Reports sore throat and dry cough with it Reported some dizziness earlier on getting up Denied shortness of breath, chest pain Denied fever, chills Denied abd pain, nausea, vomiting Physical Exam Constitutional: + well hydrated; no acute distress Eyes: PERRL, conjunctivae normal, anicteric sclerae ENMT: external ear and nose normal, oropharynx normal Respiratory: normal respiratory effort, lungs clear to auscultation Cardiovascular: Rate/Rhythm: regular rate and regular rhythm S1 S2 Gastrointestinal (Abdomen): normal bowel sounds, soft, nontender, no hepatosplenomegaly Musculoskeletal: No pedal edema Neurologic: PERRL, EOMI, accommodation nl, no face palsy, no dysarthria Results & Data Results & Data Vital Signs (Past 12 Hours) Vital Signs Temp Pulse Pulse Resp BP Pulse Ox O2 Del Method 12/15/22 07:33 37.1 C 72 18 130/82 98 Room Air 12/15/22 07:17 81 12/15/22 02:55 37.4 C 82 20 118/68 95 Room Air 12/15/22 00:00 90 12/14/22 22:33 37.5 C 84 20 122/72 94 Room Air Laboratory Results Abnormal lab results 12/14/22 12/14/22 12/14/22 Range/Units 11:32 16:37 20:04 Glucose (70-99(Fasting)) mg/dl POC Glucose 154 H 124 H 228 H (70-99) mg/dl 12/15/22 12/15/22 Range/Units 07:18 07:25 Glucose 136 H (70-99(Fasting)) mg/dl POC Glucose 138 H (70-99) mg/dl
--- NOTE | 2022-12-15 13:24 | Pharmacy Report ---
Pharmacy Glycemic Short Note 2 - Date of Service December 15, 2022 - Glycemic Short BSG Results (Last 24 hours): 12/14/22 12/14/22 12/15/22 16:37 20:04 07:18 Glucose 136 H POC Glucose 124 H 228 H 12/15/22 12/15/22 07:25 11:17 Glucose POC Glucose 138 H 230 H OUTPATIENT ANTIDIABETIC REGIMEN: * Lantus 50 units SQ qAM and 20 units PM * Novolog SS TIDM HbA1C: 9.3% (12/12/22) ASSESSMENT: 12/15: * BSGs mostly well-controlled yesterday, except for evening BSG of 228 mg/dL * Received 45 units of insulin yesterday (40 units of basal and 5 units of bolus) * Fasting BSG of 138 mg/dL, will take yesterday's total daily basal and split it BID * Tighten Novolog today 12/14: * Patient received total of 34 units of insulin yesterday; 30 units basal and 4 units bolus. * BSGs yesterday were 683-275-127-142 mg/dl. Fasting BSG today was 114 mg/dl. * Continued with basal 10 units in the AM and between 10-30 units at HS based on BSG. Also Novolog continued the same as yesterday. 12/12/22: * Pt is an 87 year old male with a history of type 1 diabetes who presented from [facility] with stroke-like symptoms. Pharmacy consulted to assist with glycemic management. * Hypoglycemic on arrival- BSGs 32-79-86-79-120mg/dL since admission. Has been NPO. D5LR running at 75ml/hr. * Based on historical glycemic data, has required ~ 40 units of basal daily while inpatient and tolerating PO. Given NPO and hypoglycemic, will give 5 units of Lantus this AM to ensure some basal is on board given type 1. Monitor throughout the day for change in PO intake and will add an additional HS Lantus scale. Novolog ACHS moderate stress scale. PLAN FOR INPATIENT GLYCEMIC CONTROL: * Basal insulin * Lantus 20 units SC BID * Bolus insulin * NovoLog per scale ACHS or Q6hrs while NPO * Goal Range: Low 120 mg/dL - High 150 mg/dL * Correction Factor: 25 mg/dL/unit * Nutritional / Prandial insulin per carb ratio of 1 unit per 9 grams CHO consumed
[2022-12-15] MEDS: ATORVASTATIN 40 MG TAB PO SCH (16:32)
[2022-12-16] MEDS: HEPARIN SOD 5,000 UNIT/0.5 ML VIAL SQ SCH ×3 (05:41→22:02)
[2022-12-16] MEDS: LEVOTHYROXINE SODIUM 50 MCG TABLET PO SCH (05:41)
[2022-12-16 08:36] LABS: Hematocrit (blood only) 37.9 % (42.0-52.0); Hemoglobin 12.6 g/dl (14.0-18.0); Mean Corpuscular Hemoglobin 30.1 pg (25.0-34.0); Mean Corpuscular Hgb Conc 33.2 g/dL (32.0-36.0); Mean Corpuscular Volume 90.5 fL (80.0-100.0); Platelet Count 338 K/uL (130-400); RDW Coefficient of Variation 13.1 % (11.5-14.5); RDW Standard Deviation 42.8 fL (36.4-46.3); Red Blood Count 4.19 M/uL (4.70-6.10); White Blood Count 8.05 K/ul (4.8-10.8)
[2022-12-16] MEDS: LANTUS PER UNIT CHARGE SQ SCH ×2 (08:39→22:05)
[2022-12-16] MEDS: POTASSIUM CHLORIDE CRTAB 20 MEQ TABCR PO SCH (08:39)
[2022-12-16] MEDS: INSULIN ASPART PER UNIT CHARGE SC SCH ×4 (08:39→22:00)
[2022-12-16] MEDS: ASPIRIN 81 MG ECTAB PO SCH (08:40)
[2022-12-16] MEDS: POLYETHYLENE (MIRALAX) 17 GM PACK PO SCH (08:40)
[2022-12-16] MEDS: CHOLECALCIFEROL 1,000 UNITS 25 MCG TAB PO SCH (08:40)
[2022-12-16 09:32] LABS: BUN Creatinine Ratio 18.4 (10-20); Calcium 8.7 mg/dl (8.5-10.1); Creatinine Clr Calc Pharmacy 54.6 ml/min; Est GFR (African American) 74.3 ml/min; Est GFR (Non-African American) 64.1 ml/min; Potassium 3.8 mmol/L (3.5-5.1)
--- NOTE | 2022-12-16 09:54 | Hospitalist Progress Note ---
Date of Service December 16, 2022 Assessment & Plan (1) Stroke-like symptoms: (2) Generalized weakness: (3) Dementia: (4) Hypothyroidism: (5) Diabetes mellitus: Plan 87 y/o presented to [facility] from [facility] with CVA-Like symptoms, garbled speech, slight facial droop, increased confusion. Has Dementia at baseline; but per staff can perform IADL's. Head CT, head/neck CTA; negative. Will order brain MRI. 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 Takes baby ASA + Statin at baseline. Neuro telehealth stroke alert performed with [facility] Dr. Melvin. No TNK intervention at this time; continue stroke work up. Neuro consult placed. Stroke like Symptoms: Generalized weakness: H/O TIA: Possible related to TIA vs Hypoglycemia Stroke Alert [facility] Teleneuro consult with Dr. Melvin; outside of TNK tx period; CT head showed no acute intracranial abnormality CTA head/neck showed no hemorrhage, mass effect, or evidence of acute territorial ischemia. 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 MRI head showed no acute intracranial abnormality seen ECHO showed normal left ventricular wall motion with ejection fraction 60 to 65% Neuro evaluation noted No further neuro testing Continue PT OT eval Continue aspirin, multivitamin Fall precaution Fever Had fever 38.2 on 12/12/22. Chest x-ray showed no evidence of pneumonia UA showed no indication for UTI No leukocytosis and procalcitonin normal Blood culture negative Dementia: Reportedly at baseline Diabetes Mellitus: Glucose 72 on admission Pharmacy on board for glycemic management Continue monitor blood sugar Will reduce home insulin regimen on discharge. Currently on lantus 20U BID and sliding scale Hypothyroidism: TSH within normal limits Continue Synthroid Disposition: PCP: Dr. Trevizo Code Status: Full code Next of kin: pt son Edward Yang [phone]; lives in [place] VTE Prophylaxis: Hep sq PT recommending rehab Awaiting placement I spent a total of 30 minutes coordinating, documenting and providing care for this patient excluding time spent in performance of separately billed services Admission and Anticipated Discharge Date Admission Date: December 11, 2022 Subjective Patient seen and examined He is awake, alert, oriented to person. Knows he is in a hospital but thought it was a [facility] Denied any sore throat or cough this morning Denied shortness of breath, chest pain Denied fever, chills Denied abd pain, nausea, vomiting Physical Exam Constitutional: + well hydrated; no acute distress Eyes: PERRL, conjunctivae normal, anicteric sclerae ENMT: external ear and nose normal, oropharynx normal Respiratory: normal respiratory effort, lungs clear to auscultation Cardiovascular: Rate/Rhythm: regular rate and regular rhythm S1 S2 Gastrointestinal (Abdomen): normal bowel sounds, soft, nontender, no hepatosplenomegaly Musculoskeletal: No pedal edema Neurologic: PERRL, EOMI. Alert and oriented to person. Knows he is in a hospital but thought it was a [facility]. Follows commands. No focal deficits in power in the extremities Results & Data Results & Data Vital Signs (Past 12 Hours) Vital Signs Temp Pulse Pulse Resp BP Pulse Ox O2 Del Method 12/16/22 07:31 36.7 C 81 18 146/75 H 97 Room Air 12/16/22 07:26 83 12/15/22 22:30 82 12/16/22 03:04 36.7 C 73 18 134/82 94 Room Air 12/15/22 22:13 36.7 C 81 20 128/76 93 Room Air Laboratory Results Abnormal lab results 12/15/22 12/15/22 12/16/22 Range/Units 11:17 20:05 07:28 RBC (4.70-6.10) M/uL Hgb (14.0-18.0) g/dl Hct (42.0-52.0) % MPV (9.4-12.4) fL Glucose (70-99(Fasting)) mg/dl POC Glucose 230 H 208 H 117 H (70-99) mg/dl 12/16/22 12/16/22 Range/Units 08:29 08:29 RBC 4.19 L (4.70-6.10) M/uL Hgb 12.6 L (14.0-18.0) g/dl Hct 37.9 L (42.0-52.0) % MPV 9.0 L (9.4-12.4) fL Glucose 128 H (70-99(Fasting)) mg/dl POC Glucose (70-99) mg/dl
[2022-12-16] MEDS: ATORVASTATIN 40 MG TAB PO SCH (17:33)
[2022-12-17] MEDS: HEPARIN SOD 5,000 UNIT/0.5 ML VIAL SQ SCH (05:48)
[2022-12-17] MEDS: LEVOTHYROXINE SODIUM 50 MCG TABLET PO SCH (05:49)
[2022-12-17] MEDS: CHOLECALCIFEROL 1,000 UNITS 25 MCG TAB PO SCH (08:50)
[2022-12-17] MEDS: POTASSIUM CHLORIDE CRTAB 20 MEQ TABCR PO SCH (08:50)
[2022-12-17] MEDS: POLYETHYLENE (MIRALAX) 17 GM PACK PO SCH (08:51)
[2022-12-17] MEDS: ASPIRIN 81 MG ECTAB PO SCH (08:51)
[2022-12-17] MEDS: INSULIN ASPART PER UNIT CHARGE SC SCH ×2 (09:01→12:32)
[2022-12-17] MEDS: LANTUS PER UNIT CHARGE SQ SCH (09:14)
--- NOTE | 2022-12-17 10:53 | Discharge Summary ---
Date of Service December 17, 2022 Admission HPI Per Admitting Provider Elbert is an 87-year-old male that was brought to the [facility] from [facility] due to staff noting a slight facial droop, increased confusion and garbled speech that was noted this afternoon. His last known well time is documented as noon today. Staff reports that when they checked on him after lunchtime they noticed a change with some left leg weakness. Patient most recent admission 10/14 to 10/18 for weakness for which he was discharged to [facility] prior to returning to [facility]. In the ED telemetry neuro [facility] consult placed with Dr. Melvin and he was noted to be outside the TNK window; continue stroke work-up for now. Patient does take aspirin low-dose and a statin at baseline. Head CT reports focal stenosis in the left vertebral artery however negative for acute stroke, mass or ICH. Head and neck CTA negative. Patient reportedly with decreased p.o. intake; maintenance fluids started in the ED. Additional PMH includes dementia, weakness, hypothyroidism, diabetes. Patient has a history of a TIA when he was 70 years old with no residual deficits reported. Staff in the ED were able to get an NIH of 7; patient was AAO x2 at that time. During my visit patient was arousable but drowsy and unable to follow commands. Patient glucose on admission was 72; recheck. Patient does not appear toxic and is hemodynamically stable and on room air. WBC 10.18; afebrile. ER physician able to speak with patient's son who lives in [place] to provide an update. I reached out to the patient's son Alessandro at [phone] and left him a voicemail. Patient to remain full code for now however further conversation warranted with son. Patient is listed as a full code per [facility] notes. Patient to be admitted for further evaluation and management. Please see A/P for further details. Admission Exam Per Admitting Provider Neuro: AAOx1, PERRLA, no aphagia, memory changes, CNII-XII grossly intact HEENT: head normocephalic, moist mucus membranes CV: S1/S2, (-) M/G/R, (-) edema, cap refill < 3 seconds Resp: Lungs CTA in all guajardo. On RA GI: Abdomen S/NT/ND, Ax4 bowel sounds, (-) CVA tenderness Musculoskeletal: unable to participate in strength exam; no flacidity in limbs Skin: (-) rashes , (-) erythema. Psych: euthymic mood Principal Diagnosis Weakness Hypoglycemia Discharge Exam Constitutional + well hydrated; no acute distress Eyes PERRL, conjunctivae normal, anicteric sclerae ENMT external ear and nose normal, oropharynx normal Respiratory normal respiratory effort, lungs clear to auscultation Cardiovascular Rate/Rhythm: regular rate and regular rhythm S1 S2 Gastrointestinal (Abdomen) normal bowel sounds, soft, nontender, no hepatosplenomegaly Musculoskeletal No pedal edema Neurologic PERRL, EOMI, accommodation nl, no face palsy, no dysarthria Psychiatric Alert and oriented to person,knows he is in a hospital but does not know which, not oriented to time. Cooperative Discharge Data Allergies Allergy/AdvReac Type Severity Reaction Status Date / Time No Known Allergies Allergy Verified 12/11/22 16:18 Consultations 12/11/22 17:44 ED Decision to Admit Stat 12/11/22 17:51 Consult Neurology Routine Ordered Studies 12/11/22 16:08 CT angio head w con Stat CT angio neck with con Stat CT head/brain wo con Stat 12/11/22 18:40 MRI Brain [MR brain wo/w con] Routine Diabetes Follow up Diabetes Follow-up Needed for HgbA1c >9% Hospital Course (1) Stroke-like symptoms: (2) Generalized weakness: (3) Dementia: (4) Hypothyroidism: (5) Diabetes mellitus: Plan 87 y/o presented to [facility] from [facility] with CVA-Like symptoms, garbled speech, slight facial droop, increased confusion. Has Dementia at baseline; but per staff can perform IADL's. Head CT, head/neck CTA; negative. Will order brain MRI. 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 Takes baby ASA + Statin at baseline. Neuro telehealth stroke alert performed with [facility] Dr. Melvin. No TNK intervention at this time; continue stroke work up. Neuro consult placed. Stroke like Symptoms: Generalized weakness: H/O TIA: Possible related to TIA vs Hypoglycemia Stroke Alert [facility] Teleneuro consult with Dr. Melvin; outside of TNK tx period; CT head showed no acute intracranial abnormality CTA head/neck showed no hemorrhage, mass effect, or evidence of acute territorial ischemia. 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 MRI head showed no acute intracranial abnormality seen ECHO showed normal left ventricular wall motion with ejection fraction 60 to 65% Neurology evaluted Neurologic symptoms thought to be related to hypoglycemia Continue aspirin Fall precaution Had fever 38.2 on 12/12/22. Infectious workup negative Chest x-ray showed no evidence of pneumonia UA showed no indication for UTI No leukocytosis and procalcitonin normal Blood culture negative Dementia: At baseline Diabetes Mellitus: Glucose 72 on admission Home insulin lantus was reduced to 20U BID which was what he was on inpatient with good blood glucose control Hypothyroidism: Continue Synthroid PT recommended rehab Discharged to [facility] for rehab Total Time Total Time Spent Total Time Spent (In Minutes): 45 Total Time Includes: Examination of the Patient, Discharge Planning and Medication Reconciliation Discharge Plan Discharge Items Patient Disposition: Transfer Inpatient Rehab Fac Reason For Visit: STROKE LIKE SYMPTOMS Discharge Diagnosis: Weakness Hypoglycemia Activity: Resume your previous activity Non-emergency contact: Primary Care Provider Call non-emergency contact if: you have any medication questions and your symptoms worsen Follow-up/Referrals: FORTINO ROJAS [Primary Care Provider] - Diet: Carb Consistent or DM2 and Heart Healthy Addtl Attending Provider Instructions: Mr Yang You were brought to the hospital due to concern for stroke like symptoms. Evaluation did not show any stroke. You were found to have hypoglycemia (low blood glucose) on presentation. For this, your lantus dose was reduced from 50Units in the morning and 20units at night to 20 units twice a day. Your blood sugar was better controlled while in the hospital Please ensure follow up with your Primary Doctor. It was a pleasure taking care of you Pending Studies at Discharge: No Stand-Alone Forms: My [facility] Skilled Items Patient informed of condition?: Yes DNR: No Discharge Level of Care: Skilled Communicable Disease: No Discharge Prognosis: Stable Lines: None Urinary Catheter: No Medications and DC Order Prescriptions: Continued atorvastatin [Lipitor] 40 mg Tablet 40 mg PO DAILY@1700 meclizine 12.5 mg Tablet 12.5 mg PO TID Rx Instructions: Take at 0800,1200,1800 aspirin [Darrion Low Dose Aspirin] 81 mg Tablet,Delayed Release (Dr/Ec) 81 mg PO QAM levothyroxine [Synthroid] 50 mcg Tablet 50 mcg PO DAILYBB sennosides [senna] 8.6 mg Tablet 8.6 mg PO DAILY PRN (Reason: Constipation) cholecalciferol (vitamin D3) [Vitamin D3] 25 mcg (1,000 unit) Capsule 25 mcg PO DAILY potassium chloride 20 mEq Tablet Extended Release 20 meq PO DAILY meloxicam 7.5 mg Tablet 7.5 mg PO DAILY insulin lispro [Humalog KwikPen Insulin] 100 unit/mL Insulin Pen 1 sliding scale dose SUBCUT USEASDIRECTD Rx Instructions: TAKES 0600, 1200, & 1630--BSG 181-200=2 UNITS, BSG 201-250=3 UNITS, BSG 251- 300=4 UNITS, BSG 301-350=6 UNITS, BSG 351-400= 8 UNITS, BSG 401-450=10 UNITS, BSG 450+=10 UNITS & CALL Changed insulin glargine [Lantus U-100 Insulin] 100 unit/mL solution 20 unit subcut BID Qty: 10 0RF Rx Instructions: 20 units subcutaneously twice a day; Discharge Orders: Discharge Order (Routine); Ordered 12/17/22 Ordered By: Myla Dumont Admission Data Admit Date/Time: 12/11/22 17:51 Attending Provider: Myla Dumont I. Admit Provider: Amy López Primary Care Provider: FORTINO ROJAS Other Providers: Amy López ; Ric Doss ; [facility] Other Interventions: Discharge Summary Assessment (RN) Last Done: 12/17/22 12:02
== END 2022-12-17 13:27 | DRG 69 ==
LOC: ED 16:00 → 2W 17:51 → SUATTDRO 17:51 → 2W 19:30